=== PATIENT | male | born 1940 | race Caucasian/White ===

== ENCOUNTER 2021-05-26 18:23 | Inpatient (IN) | payer MEDICARE ==
[2021-05-26] MEDS ORDERED: Ondansetron PF 4 MG/2 ML Vial ONE (20:36)
[2021-05-26] MEDS ORDERED: Morphine 4 MG/ML VIAL ONE (20:36)
[2021-05-26] MEDS ORDERED: HYDROcodone/Acetaminophen 5/325 mg Tablet ONE (20:37)
[2021-05-26 21:35] LABS: INR-International Normal Ratio 1.2; Prothrombin Time 15.3 sec (12.0-14.7)
[2021-05-26 21:36] LABS: PTT 34.2 sec (22.9-36.1)
[2021-05-26 21:47] LABS: #Eosinphils 0.2 thou/uL (0.0-0.7); #Lymphocytes 0.9 thou/uL (1.20-3.40); #Monocytes 0.4 thou/uL (0.11-0.59); #Neutrophils 5.5 thou/uL (1.40-6.50); %Basophils 0.3 % (0.0-1.0); %Lymphocytes 12.2 % (21.0-51.0); %Neutrophils 78.6 % (42.0-75.0); Hemoglobin 12.3 g/dL (14.0-18.0); Mean Corpuscular HGB CONC 34.4 g/dL (32.0-36.0); Mean Corpuscular Volume 84.2 fL (78.0-98.0); Mean Platelet Volume 11.7 fL (7.4-10.4); Platelet Count 106 thou/uL (130-400); RBC Distribution Width 15.4 % (11.5-14.5); Red Blood Cell (RBC) Count 4.25 mill/uL (4.70-6.10)
[2021-05-26 22:11] LABS: ALT (SGPT) 11 U/L (8-55); AST (SGOT) 13 U/L (5-34); Albumin 3.5 g/dL (3.4-4.8); Alkaline Phosphatase 130 U/L (40-110); Anion Gap 18 mmol/L (10-20); BUN (Urea Nitrogen) 81 mg/dL (8.4-25.7); Calc. Creatinine Clearance 0 mL/min (70-130); Calcium 8.9 mg/dL (7.8-10.44); Carbon Dioxide 22 mmol/L (23-31); Chloride 98 mmol/L (98-107); Globulin 3.4 g/dL (2.4-3.5); Glucose 160 mg/dL (83-110); Protein, Total 6.9 g/dL (5.8-8.1); Sodium 133 mmol/L (136-145)
[2021-05-26 23:48] LABS: SARS-CoV-2 NAA Rapid Test Not Detected (NotDetected)
[2021-05-27 00:33] LABS: CKMB 2.2 ng/mL (0-6.6)
[2021-05-27] MEDS ORDERED: Acetaminophen 325 MG TAB PO PRN (01:42)
[2021-05-27] MEDS ORDERED: Dextrose 50% Abboject 50 ML SYRINGE SLOW IVP PRN (02:05)
[2021-05-27] MEDS ORDERED: HumaLOG 300 UNITS/3 ML VIAL SC PRN ×2 (02:05)
[2021-05-27] MEDS ORDERED: Dextrose 5% in Water 1,000 ML IV PRN (02:05)
[2021-05-27] MEDS: traMADol HCl 50 MG TAB PO PRN ×3 (04:37→22:23)
[2021-05-27 04:43] LABS: #Eosinphils 0.2 thou/uL (0.0-0.7); #Lymphocytes 0.6 thou/uL (1.20-3.40); #Monocytes 0.5 thou/uL (0.11-0.59); #Neutrophils 4.1 thou/uL (1.40-6.50); %Basophils 0.2 % (0.0-1.0); %Eosinophils 4.3 % (0.0-10.0); %Lymphocytes 10.4 % (21.0-51.0); %Monocytes 9.1 % (0.0-10.0); %Neutrophils 75.9 % (42.0-75.0); Hemoglobin 11.3 g/dL (14.0-18.0); Mean Corpuscular HGB CONC 33.1 g/dL (32.0-36.0); Mean Corpuscular Volume 84.5 fL (78.0-98.0); Mean Platelet Volume 11.8 fL (7.4-10.4); Platelet Count 107 thou/uL (130-400); RBC Distribution Width 15.3 % (11.5-14.5); Red Blood Cell (RBC) Count 4.02 mill/uL (4.70-6.10); White Blood Cell (WBC) Count 5.4 thou/uL (4.8-10.8)
[2021-05-27 05:23] LABS: Anion Gap 19 mmol/L (10-20); BUN (Urea Nitrogen) 79 mg/dL (8.4-25.7); Calc. Creatinine Clearance 0 mL/min (70-130); Calcium 8.1 mg/dL (7.8-10.44); Carbon Dioxide 16 mmol/L (23-31); Chloride 103 mmol/L (98-107); Glucose 129 mg/dL (83-110); Potassium 4.7 mmol/L (3.5-5.1); Sodium 133 mmol/L (136-145)
[2021-05-27 08:43] LABS: Troponin I 0.085 ng/mL (< 0.028)
[2021-05-27] MEDS: Lidocaine 5% Patch TD SCH (10:04)
[2021-05-27] MEDS: Transdermal Patch Removal TOP SCH (22:23)
[2021-05-28 05:21] LABS: Anion Gap 15 mmol/L (10-20); BUN (Urea Nitrogen) 90 mg/dL (8.4-25.7); Calc. Creatinine Clearance 32 mL/min (70-130); Carbon Dioxide 22 mmol/L (23-31); Chloride 102 mmol/L (98-107); Glucose 124 mg/dL (83-110); Potassium 4.8 mmol/L (3.5-5.1); Sodium 134 mmol/L (136-145)
[2021-05-28 05:30] LABS: #Eosinphils 0.3 thou/uL (0.0-0.7); #Lymphocytes 0.5 thou/uL (1.20-3.40); #Monocytes 0.5 thou/uL (0.11-0.59); #Neutrophils 3.8 thou/uL (1.40-6.50); %Basophils 0.8 % (0.0-1.0); %Eosinophils 5.4 % (0.0-10.0); %Lymphocytes 10.5 % (21.0-51.0); %Monocytes 9.8 % (0.0-10.0); %Neutrophils 73.6 % (42.0-75.0); Hemoglobin 11.2 g/dL (14.0-18.0); Mean Corpuscular HGB CONC 32.6 g/dL (32.0-36.0); Mean Corpuscular Hemoglobin 27.7 pg (27.0-31.0); Mean Corpuscular Volume 85.1 fL (78.0-98.0); Mean Platelet Volume 11.4 fL (7.4-10.4); Platelet Count 114 thou/uL (130-400); Red Blood Cell (RBC) Count 4.05 mill/uL (4.70-6.10); White Blood Cell (WBC) Count 5.1 thou/uL (4.8-10.8)
[2021-05-28] MEDS: Lidocaine 5% Patch TD SCH (09:48)
[2021-05-28] MEDS ORDERED: Sodium Chloride 0.9% 1,000 ML IV SCH (10:45)
[2021-05-28] MEDS ORDERED: Furosemide 20 MG/2 ML VIAL SLOW IVP SCH (11:45)
[2021-05-28] MEDS ORDERED: traMADol HCl 50 MG TAB PO PRN (12:35)
[2021-05-28] MEDS ORDERED: Acetaminophen 325 MG TAB PO SCH (13:00)
[2021-05-28] MEDS: Transdermal Patch Removal TOP SCH (21:11)
[2021-05-28] MEDS: HYDROcodone/Acetaminophen 5/325 mg Tablet PO PRN (21:11)
[2021-05-28] MEDS: Senokot S 8.6-50 MG TAB PO SCH (21:12)
[2021-05-29] MEDS: HYDROcodone/Acetaminophen 5/325 mg Tablet PO PRN (04:49)
[2021-05-29 05:49] LABS: Anion Gap 16 mmol/L (10-20); BUN (Urea Nitrogen) 99 mg/dL (8.4-25.7); Calc. Creatinine Clearance 36 mL/min (70-130); Calcium 8.7 mg/dL (7.8-10.44); Carbon Dioxide 22 mmol/L (23-31); Chloride 103 mmol/L (98-107); Glucose 111 mg/dL (83-110); Potassium 4.9 mmol/L (3.5-5.1); Sodium 136 mmol/L (136-145)
[2021-05-29] MEDS: Senokot S 8.6-50 MG TAB PO SCH ×2 (08:05→22:50)
[2021-05-29] MEDS: Lidocaine 5% Patch TD SCH (08:05)
[2021-05-29] MEDS ORDERED: traMADol HCl 50 MG TAB PO PRN ×2 (10:42→11:38)
[2021-05-29] MEDS: Ferrous Sulfate 325 MG TAB PO SCH (16:05)
[2021-05-29] MEDS: Carvedilol 6.25 MG TAB PO SCH (16:05)
[2021-05-29] MEDS ORDERED: Morphine 4 MG/ML VIAL SLOW IVP PRN (18:10)
[2021-05-29] MEDS: HYDROcodone/Acetaminophen 5/325 mg Tablet PO SCH (22:49)
[2021-05-29] MEDS: Transdermal Patch Removal TOP SCH (22:50)
[2021-05-29] MEDS: Atorvastatin Calcium 40 MG TAB PO SCH (22:50)
[2021-05-30] MEDS: HYDROcodone/Acetaminophen 5/325 mg Tablet PO SCH ×6 (02:51→21:20)
[2021-05-30] MEDS: Ketorolac Tromethamine 30 MG/ML VIAL IVP SCH ×4 (02:51→16:43)
[2021-05-30] MEDS: Carvedilol 6.25 MG TAB PO SCH ×2 (05:39→16:44)
[2021-05-30 05:48] LABS: #Eosinphils 0.3 thou/uL (0.0-0.7); #Lymphocytes 0.6 thou/uL (1.20-3.40); #Monocytes 0.4 thou/uL (0.11-0.59); #Neutrophils 2.8 thou/uL (1.40-6.50); %Basophils 0.4 % (0.0-1.0); %Eosinophils 7.5 % (0.0-10.0); %Lymphocytes 14.5 % (21.0-51.0); %Monocytes 10.2 % (0.0-10.0); %Neutrophils 67.3 % (42.0-75.0); Hemoglobin 11.2 g/dL (14.0-18.0); Mean Corpuscular HGB CONC 33.4 g/dL (32.0-36.0); Mean Corpuscular Hemoglobin 28.1 pg (27.0-31.0); Mean Platelet Volume 10.6 fL (7.4-10.4); Platelet Count 123 thou/uL (130-400); RBC Distribution Width 14.7 % (11.5-14.5); Red Blood Cell (RBC) Count 3.98 mill/uL (4.70-6.10); White Blood Cell (WBC) Count 4.1 thou/uL (4.8-10.8)
[2021-05-30 06:03] LABS: Anion Gap 16 mmol/L (10-20); BUN (Urea Nitrogen) 94 mg/dL (8.4-25.7); Calc. Creatinine Clearance 47 mL/min (70-130); Calcium 8.4 mg/dL (7.8-10.44); Carbon Dioxide 20 mmol/L (23-31); Chloride 104 mmol/L (98-107); Glucose 110 mg/dL (83-110); Potassium 4.7 mmol/L (3.5-5.1); Sodium 135 mmol/L (136-145)
[2021-05-30] MEDS ORDERED: Fentanyl 100 MCG/2 ML VIAL ONE (07:17)
[2021-05-30] MEDS ORDERED: EPINEPHrine 1 MG/ML AMP ONE (07:48)
[2021-05-30] MEDS ORDERED: Dexamethasone 4 mg/ml Vial ONE (07:48)
[2021-05-30] MEDS ORDERED: ceFAZolin 2 GM/DEX 5% 100 ML BAG ONE (07:51)
[2021-05-30] MEDS ORDERED: Famotidine/PF 20 mg/2ml Vial ONE (07:52)
[2021-05-30] MEDS ORDERED: Tranexamic Acid 1,000 MG/10 ML VIAL ONE (07:52)
[2021-05-30] MEDS ORDERED: Sodium Chloride 0.9% 100 ML ONE (07:52)
[2021-05-30] MEDS ORDERED: Propofol 500 MG/50 ML VIAL ONE (08:03)
[2021-05-30] MEDS ORDERED: Phenylephrine 10 MG/ML VIAL ONE (08:09)
[2021-05-30] MEDS ORDERED: Dexamethasone 20 MG/5 ML VIAL ONE (08:24)
[2021-05-30] MEDS ORDERED: ePHEDrine 50 MG/ML VIAL ONE (08:24)
[2021-05-30] MEDS ORDERED: PROPOFOL 200 MG/20 ML VIAL ONE (08:24)
[2021-05-30] MEDS ORDERED: Bupivacaine HCl 0.5%/Epinephrine 1:200,000/PF 30 ml Vial ONE (08:24)
[2021-05-30] MEDS ORDERED: Lidocaine 1% PF 5 ML VIAL ONE (08:24)
[2021-05-30] MEDS ORDERED: PHENYLEPHRINE-NS 100 MCG/ML 10 ML SYRINGE ONE ×2 (08:24→10:22)
[2021-05-30] MEDS ORDERED: Aspirin 81 mg Enteric Coated Tablet PO SCH (09:00)
[2021-05-30] MEDS ORDERED: Promethazine HCl 25 MG/ML VIAL IVPB PRN (11:03)
[2021-05-30] MEDS ORDERED: Promethazine HCl 25 MG/ML VIAL IM PRN (11:03)
[2021-05-30] MEDS ORDERED: Ondansetron HCl/PF 4 MG/2 ML Vial IVP PRN (11:03)
[2021-05-30] MEDS: Lidocaine 5% Patch TD SCH (12:01)
[2021-05-30] MEDS: Senokot S 8.6-50 MG TAB PO SCH ×2 (12:55→21:21)
[2021-05-30] MEDS: Spironolactone 25 MG TAB PO SCH (12:55)
[2021-05-30] MEDS: Ferrous Sulfate 325 MG TAB PO SCH ×2 (12:55→16:44)
[2021-05-30] MEDS: CEFAZOLIN 2 GM, Admixture Fee 1 EACH in Sodium Chloride 0.9% 100 ML IVPB SCH ×2 (13:35→22:32)
[2021-05-30] MEDS ORDERED: ceFAZolin 2 GM/DEX 5% 100 ML BAG IVPB SCH (14:00)
[2021-05-30] MEDS ORDERED: Polyethylene Glycol 3350 17 GM Packet PO SCH (15:15)
[2021-05-30] MEDS: Atorvastatin Calcium 40 MG TAB PO SCH (21:20)
[2021-05-30] MEDS: Transdermal Patch Removal TOP SCH (21:22)
[2021-05-31] MEDS: Ketorolac Tromethamine 30 MG/ML VIAL IVP SCH ×4 (00:44→18:29)
[2021-05-31] MEDS: HYDROcodone/Acetaminophen 5/325 mg Tablet PO SCH ×6 (00:44→20:26)
[2021-05-31 05:55] LABS: #Lymphocytes 0.4 thou/uL (1.20-3.40); #Monocytes 0.4 thou/uL (0.11-0.59); #Neutrophils 4.9 thou/uL (1.40-6.50); %Basophils 0.4 % (0.0-1.0); %Eosinophils 0.4 % (0.0-10.0); %Lymphocytes 6.7 % (21.0-51.0); %Monocytes 6.1 % (0.0-10.0); %Neutrophils 86.3 % (42.0-75.0); Hemoglobin 11.1 g/dL (14.0-18.0); Mean Corpuscular HGB CONC 33.7 g/dL (32.0-36.0); Mean Corpuscular Hemoglobin 28.1 pg (27.0-31.0); Mean Corpuscular Volume 83.5 fL (78.0-98.0); Mean Platelet Volume 10.7 fL (7.4-10.4); Platelet Count 121 thou/uL (130-400); RBC Distribution Width 14.5 % (11.5-14.5); Red Blood Cell (RBC) Count 3.95 mill/uL (4.70-6.10); White Blood Cell (WBC) Count 5.7 thou/uL (4.8-10.8)
[2021-05-31 06:19] LABS: ALT (SGPT) 7 U/L (8-55); AST (SGOT) 20 U/L (5-34); Alkaline Phosphatase 102 U/L (40-110); Anion Gap 16 mmol/L (10-20); BUN (Urea Nitrogen) 117 mg/dL (8.4-25.7); Calc. Creatinine Clearance 27 mL/min (70-130); Calcium 8.2 mg/dL (7.8-10.44); Carbon Dioxide 20 mmol/L (23-31); Chloride 103 mmol/L (98-107); Glucose 147 mg/dL (83-110); Potassium 5.6 mmol/L (3.5-5.1); Sodium 133 mmol/L (136-145)
[2021-05-31] MEDS ORDERED: Furosemide 20 MG/2 ML VIAL SLOW IVP SCH (07:15)
[2021-05-31] MEDS: Lidocaine 5% Patch TD SCH (09:00)
[2021-05-31] MEDS: Enoxaparin Sodium 40 MG/0.4 ML SYRINGE SC SCH (09:44)
[2021-05-31] MEDS: Polyethylene Glycol 3350 17 GM Packet PO SCH (09:44)
[2021-05-31] MEDS: Senokot S 8.6-50 MG TAB PO SCH ×3 (09:44→21:46)
[2021-05-31] MEDS: Spironolactone 25 MG TAB PO SCH (09:45)
[2021-05-31] MEDS: Carvedilol 6.25 MG TAB PO SCH ×2 (09:45→18:35)
[2021-05-31] MEDS: Ferrous Sulfate 325 MG TAB PO SCH ×2 (09:48→18:30)
[2021-05-31 14:22] LABS: Anion Gap 16 mmol/L (10-20); BUN (Urea Nitrogen) 123 mg/dL (8.4-25.7); Calc. Creatinine Clearance 25 mL/min (70-130); Carbon Dioxide 19 mmol/L (23-31); Chloride 102 mmol/L (98-107); Glucose 131 mg/dL (83-110); Potassium 5.3 mmol/L (3.5-5.1); Sodium 132 mmol/L (136-145)
[2021-05-31] MEDS: Atorvastatin Calcium 40 MG TAB PO SCH ×2 (20:26→21:45)
[2021-05-31] MEDS: Transdermal Patch Removal TOP SCH (21:46)
[2021-06-01] MEDS: Ketorolac Tromethamine 30 MG/ML VIAL IVP SCH ×3 (03:14→12:28)
[2021-06-01] MEDS: HYDROcodone/Acetaminophen 5/325 mg Tablet PO SCH ×5 (03:14→15:03)
[2021-06-01] MEDS: Enoxaparin Sodium 40 MG/0.4 ML SYRINGE SC SCH (09:27)
[2021-06-01] MEDS: Ferrous Sulfate 325 MG TAB PO SCH ×2 (09:27→19:04)
[2021-06-01] MEDS: Spironolactone 25 MG TAB PO SCH (09:27)
[2021-06-01] MEDS: Carvedilol 6.25 MG TAB PO SCH ×2 (09:27→17:40)
[2021-06-01] MEDS: Polyethylene Glycol 3350 17 GM Packet PO SCH (09:29)
[2021-06-01] MEDS: Senokot S 8.6-50 MG TAB PO SCH (09:29)
[2021-06-01] MEDS: Lidocaine 5% Patch TD SCH (09:29)
[2021-06-01] MEDS ORDERED: Heparin 10,000 UNITS/ 10 ML VIAL ONE (10:25)
[2021-06-01 10:36] LABS: Anion Gap 16 mmol/L (10-20); Calc. Creatinine Clearance 25 mL/min (70-130); Calcium 8.2 mg/dL (7.8-10.44); Carbon Dioxide 20 mmol/L (23-31); Chloride 104 mmol/L (98-107); Glucose 137 mg/dL (83-110); Potassium 5.1 mmol/L (3.5-5.1); Sodium 135 mmol/L (136-145)
[2021-06-01 10:48] LABS: BUN (Urea Nitrogen) 125 mg/dL (8.4-25.7)
[2021-06-01] MEDS ORDERED: Ziprasidone 20 MG VIAL IM PRN ×2 (16:11→16:20)
[2021-06-01] MEDS: ALPRAZolam 0.25 MG TAB PO PRN (16:23)
[2021-06-01] MEDS ORDERED: Sterile Water 10 ML VIAL FS PRN (16:30)
[2021-06-01 20:24] LABS: HBSAB Concentration Less than 8.00 mIU/mL; HBSAg Index 0.23 S/CO (0-0.99); Hep B Core Total Ab Non-Reactive (NonReactive); Hep B Core Total Index 0.06 S/CO (0-0.79); Hep B Surf AB Non-Reactive (NonReactive); Hep B Surf Ag Non-Reactive S/CO (NonReactive); Hep C IgG Ab Non-Reactive (NonReactive)
[2021-06-02] MEDS: Senokot S 8.6-50 MG TAB PO SCH ×3 (00:29→22:12)
[2021-06-02] MEDS: Atorvastatin Calcium 40 MG TAB PO SCH ×2 (00:29→22:14)
[2021-06-02] MEDS: Transdermal Patch Removal TOP SCH (07:47)
[2021-06-02] MEDS: Carvedilol 6.25 MG TAB PO SCH ×2 (08:48→18:23)
[2021-06-02] MEDS: Ferrous Sulfate 325 MG TAB PO SCH ×2 (08:52→18:23)
[2021-06-02] MEDS: Polyethylene Glycol 3350 17 GM Packet PO SCH (09:00)
[2021-06-02] MEDS: Lidocaine 5% Patch TD SCH (09:08)
[2021-06-02 09:11] LABS: #Eosinphils 0.1 thou/uL (0.0-0.7); #Lymphocytes 0.6 thou/uL (1.20-3.40); #Monocytes 0.4 thou/uL (0.11-0.59); #Neutrophils 6.7 thou/uL (1.40-6.50); %Basophils 0.3 % (0.0-1.0); %Eosinophils 1.7 % (0.0-10.0); %Lymphocytes 7.9 % (21.0-51.0); %Monocytes 5.4 % (0.0-10.0); %Neutrophils 84.7 % (42.0-75.0); Mean Corpuscular Hemoglobin 27.4 pg (27.0-31.0); Mean Corpuscular Volume 83.1 fL (78.0-98.0); Mean Platelet Volume 10.5 fL (7.4-10.4); Platelet Count 139 thou/uL (130-400); RBC Distribution Width 14.8 % (11.5-14.5); Red Blood Cell (RBC) Count 4.01 mill/uL (4.70-6.10); White Blood Cell (WBC) Count 7.9 thou/uL (4.8-10.8)
[2021-06-02] MEDS ORDERED: Heparin 10,000 UNITS/ 10 ML VIAL ONE (09:13)
[2021-06-02 09:39] LABS: ALT (SGPT) Less than 7 U/L (8-55); AST (SGOT) 26 U/L (5-34); Alkaline Phosphatase 100 U/L (40-110); Anion Gap 16 mmol/L (10-20); BUN (Urea Nitrogen) 65 mg/dL (8.4-25.7); Bilirubin, Total 1.3 mg/dL (0.2-1.2); Calc. Creatinine Clearance 52 mL/min (70-130); Calcium 8.2 mg/dL (7.8-10.44); Carbon Dioxide 23 mmol/L (23-31); Chloride 106 mmol/L (98-107); Globulin 2.9 g/dL (2.4-3.5); Glucose 113 mg/dL (83-110); Potassium 4.4 mmol/L (3.5-5.1); Protein, Total 5.9 g/dL (5.8-8.1); Sodium 141 mmol/L (136-145)
[2021-06-02 15:04] LABS: #Eosinphils 0.1 thou/uL (0.0-0.7); #Lymphocytes 0.5 thou/uL (1.20-3.40); #Monocytes 0.6 thou/uL (0.11-0.59); #Neutrophils 8.4 thou/uL (1.40-6.50); %Eosinophils 0.9 % (0.0-10.0); %Lymphocytes 5.1 % (21.0-51.0); %Monocytes 5.9 % (0.0-10.0); %Neutrophils 88.2 % (42.0-75.0); Hemoglobin 10.9 g/dL (14.0-18.0); Mean Corpuscular HGB CONC 32.9 g/dL (32.0-36.0); Mean Corpuscular Hemoglobin 27.4 pg (27.0-31.0); Mean Corpuscular Volume 83.2 fL (78.0-98.0); Mean Platelet Volume 10.2 fL (7.4-10.4); Platelet Count 140 thou/uL (130-400); RBC Distribution Width 14.8 % (11.5-14.5); Red Blood Cell (RBC) Count 3.99 mill/uL (4.70-6.10); White Blood Cell (WBC) Count 9.5 thou/uL (4.8-10.8)
[2021-06-02] MEDS: Acetaminophen 325 MG TAB PO PRN (22:12)
[2021-06-02] MEDS: ALPRAZolam 0.25 MG TAB PO PRN (22:12)
[2021-06-03] MEDS: Transdermal Patch Removal TOP SCH ×2 (07:47→20:54)
[2021-06-03 09:03] LABS: #Eosinphils 0.1 thou/uL (0.0-0.7); #Lymphocytes 0.6 thou/uL (1.20-3.40); #Monocytes 0.5 thou/uL (0.11-0.59); #Neutrophils 7.4 thou/uL (1.40-6.50); %Basophils 0.2 % (0.0-1.0); %Eosinophils 1.4 % (0.0-10.0); %Lymphocytes 6.4 % (21.0-51.0); %Monocytes 6.1 % (0.0-10.0); %Neutrophils 85.9 % (42.0-75.0); Hemoglobin 11.4 g/dL (14.0-18.0); Mean Corpuscular HGB CONC 32.9 g/dL (32.0-36.0); Mean Corpuscular Hemoglobin 27.9 pg (27.0-31.0); Mean Corpuscular Volume 84.8 fL (78.0-98.0); Mean Platelet Volume 10.2 fL (7.4-10.4); Platelet Count 143 thou/uL (130-400); RBC Distribution Width 14.9 % (11.5-14.5); Red Blood Cell (RBC) Count 4.08 mill/uL (4.70-6.10); White Blood Cell (WBC) Count 8.6 thou/uL (4.8-10.8)
[2021-06-03 09:22] LABS: ALT (SGPT) Less than 7 U/L (8-55); AST (SGOT) 24 U/L (5-34); Albumin 2.9 g/dL (3.4-4.8); Alkaline Phosphatase 101 U/L (40-110); Anion Gap 12 mmol/L (10-20); BUN (Urea Nitrogen) 54 mg/dL (8.4-25.7); Bilirubin, Total 1.8 mg/dL (0.2-1.2); Calc. Creatinine Clearance 68 mL/min (70-130); Calcium 8.3 mg/dL (7.8-10.44); Carbon Dioxide 28 mmol/L (23-31); Chloride 101 mmol/L (98-107); Glucose 130 mg/dL (83-110); Potassium 3.7 mmol/L (3.5-5.1); Protein, Total 5.9 g/dL (5.8-8.1); Sodium 137 mmol/L (136-145)
[2021-06-03] MEDS: Carvedilol 6.25 MG TAB PO SCH ×2 (09:22→18:01)
[2021-06-03] MEDS: Senokot S 8.6-50 MG TAB PO SCH ×2 (09:22→20:51)
[2021-06-03] MEDS: Ferrous Sulfate 325 MG TAB PO SCH ×2 (09:23→18:01)
[2021-06-03] MEDS: Lidocaine 5% Patch TD SCH (09:24)
[2021-06-03] MEDS: Polyethylene Glycol 3350 17 GM Packet PO SCH (09:24)
[2021-06-03] MEDS ORDERED: oxyCODONE/Acetaminophen 5 mg/325 mg Tablet PO PRN (11:00)
[2021-06-03] MEDS ORDERED: traMADol HCl 50 MG TAB PO SCH (11:00)
[2021-06-03] MEDS ORDERED: Lidocaine 5% Patch TD SCH (11:30)
[2021-06-03] MEDS: traMADol HCl 50 MG TAB PO PRN (18:04)
[2021-06-03] MEDS: Atorvastatin Calcium 40 MG TAB PO SCH (20:51)
[2021-06-04 04:20] LABS: Hemoglobin 10.4 g/dL (14.0-18.0); Mean Corpuscular HGB CONC 33.7 g/dL (32.0-36.0); Mean Corpuscular Hemoglobin 28.4 pg (27.0-31.0); Mean Corpuscular Volume 84.2 fL (78.0-98.0); Mean Platelet Volume 10.1 fL (7.4-10.4); Platelet Count 142 thou/uL (130-400); RBC Distribution Width 14.6 % (11.5-14.5); Red Blood Cell (RBC) Count 3.65 mill/uL (4.70-6.10); White Blood Cell (WBC) Count 7.9 thou/uL (4.8-10.8)
[2021-06-04 04:44] LABS: Anion Gap 13 mmol/L (10-20); BUN (Urea Nitrogen) 59 mg/dL (8.4-25.7); Calc. Creatinine Clearance 57 mL/min (70-130); Calcium 7.9 mg/dL (7.8-10.44); Carbon Dioxide 27 mmol/L (23-31); Chloride 99 mmol/L (98-107); Glucose 107 mg/dL (83-110); Potassium 3.8 mmol/L (3.5-5.1); Sodium 135 mmol/L (136-145)
[2021-06-04] MEDS ORDERED: Enoxaparin Sodium 40 MG/0.4 ML SYRINGE SC SCH (09:00)
[2021-06-04] MEDS: Polyethylene Glycol 3350 17 GM Packet PO SCH (09:01)
[2021-06-04] MEDS: Ferrous Sulfate 325 MG TAB PO SCH ×2 (09:01→16:45)
[2021-06-04] MEDS: Lidocaine 5% Patch TD SCH (09:01)
[2021-06-04] MEDS: Carvedilol 6.25 MG TAB PO SCH ×2 (09:01→16:44)
[2021-06-04] MEDS: Senokot S 8.6-50 MG TAB PO SCH ×2 (09:01→21:03)
[2021-06-04] MEDS: Sodium Chloride 0.9% 1,000 ML IV SCH ×2 (12:00→23:13)
[2021-06-04 14:42] LABS: SARS-CoV-2 PCR by NAA Not Detected (NotDetected)
[2021-06-04] MEDS ORDERED: Triamcinolone 0.1% Cream 15 GM TUBE TOP PRN (14:49)
[2021-06-04] MEDS ORDERED: Mupirocin 2% Ointment 22 GM Tube TOP SCH (15:15)
[2021-06-04] MEDS: Atorvastatin Calcium 40 MG TAB PO SCH (21:03)
[2021-06-04] MEDS: Aspirin 81 mg Enteric Coated Tablet PO SCH (21:03)
[2021-06-04] MEDS: Transdermal Patch Removal TOP SCH (21:06)
[2021-06-04] MEDS: Mupirocin 2% Ointment 22 GM Tube TOP SCH (21:09)
[2021-06-05 04:58] LABS: #Eosinphils 0.3 thou/uL (0.0-0.7); #Lymphocytes 0.5 thou/uL (1.20-3.40); #Monocytes 0.4 thou/uL (0.11-0.59); #Neutrophils 4.3 thou/uL (1.40-6.50); %Basophils 0.3 % (0.0-1.0); %Eosinophils 5.1 % (0.0-10.0); %Lymphocytes 9.5 % (21.0-51.0); %Monocytes 7.9 % (0.0-10.0); %Neutrophils 77.1 % (42.0-75.0); Hemoglobin 9.9 g/dL (14.0-18.0); Mean Corpuscular HGB CONC 31.8 g/dL (32.0-36.0); Mean Corpuscular Volume 84.9 fL (78.0-98.0); Mean Platelet Volume 10.7 fL (7.4-10.4); Platelet Count 143 thou/uL (130-400); RBC Distribution Width 14.5 % (11.5-14.5); Red Blood Cell (RBC) Count 3.67 mill/uL (4.70-6.10); White Blood Cell (WBC) Count 5.5 thou/uL (4.8-10.8)
[2021-06-05 05:35] LABS: Anion Gap 12 mmol/L (10-20); BUN (Urea Nitrogen) 62 mg/dL (8.4-25.7); Calc. Creatinine Clearance 60 mL/min (70-130); Calcium 7.8 mg/dL (7.8-10.44); Carbon Dioxide 25 mmol/L (23-31); Chloride 101 mmol/L (98-107); Glucose 108 mg/dL (83-110); Potassium 3.8 mmol/L (3.5-5.1); Sodium 134 mmol/L (136-145)
[2021-06-05] MEDS: Carvedilol 6.25 MG TAB PO SCH ×2 (09:51→17:30)
[2021-06-05] MEDS: Ferrous Sulfate 325 MG TAB PO SCH ×2 (09:51→17:30)
[2021-06-05] MEDS: Aspirin 81 mg Enteric Coated Tablet PO SCH ×2 (09:51→22:00)
[2021-06-05] MEDS: Senokot S 8.6-50 MG TAB PO SCH ×2 (09:51→22:00)
[2021-06-05] MEDS: Lidocaine 5% Patch TD SCH (09:51)
[2021-06-05] MEDS: Mupirocin 2% Ointment 22 GM Tube TOP SCH ×2 (09:52→22:00)
[2021-06-05] MEDS: Polyethylene Glycol 3350 17 GM Packet PO SCH (09:52)
[2021-06-05 14:05] LABS: Bacteria/HPF None Seen HPF (None Seen); Bilirubin Negative (Negative); Blood, Urine Negative (Negative); Clarity Clear (Clear); Glucose, Urine (Dipstick) Normal (Negative); Ketone, Urine Negative (Negative); Leukocyte 250 Leu/uL (Negative); Nitrite Negative (Negative); Protein, Urine (Dipstick) 10 mg/dL (Neg-Trace); RBC/HPF 0-3 HPF (0-3); Specific Gravity, Urine 1.017 (1.002-1.036); Squamous Epithelial None Seen HPF (0-3); Urobilinogen Normal mg/dL (Less than 2); pH, Urine 5.5 (5.0-9.0)
[2021-06-05 14:23] LABS: Creatinine, Urine 107.77 mg/dL (63-166)
[2021-06-05] MEDS: Sodium Chloride 0.9% 1,000 ML IV SCH (17:29)
[2021-06-05] MEDS: Atorvastatin Calcium 40 MG TAB PO SCH (22:00)
[2021-06-05] MEDS: Transdermal Patch Removal TOP SCH (22:00)
[2021-06-05] MEDS: ALPRAZolam 0.25 MG TAB PO PRN (23:03)
[2021-06-06 05:18] LABS: AST (SGOT) 18 U/L (5-34); Albumin 2.4 g/dL (3.4-4.8); Alkaline Phosphatase 99 U/L (40-110); Anion Gap 14 mmol/L (10-20); BUN (Urea Nitrogen) 54 mg/dL (8.4-25.7); Bilirubin, Total 1.2 mg/dL (0.2-1.2); Calc. Creatinine Clearance 75 mL/min (70-130); Calcium 7.5 mg/dL (7.8-10.44); Carbon Dioxide 19 mmol/L (23-31); Chloride 103 mmol/L (98-107); Glucose 121 mg/dL (83-110); Potassium 4.1 mmol/L (3.5-5.1); Protein, Total 5.4 g/dL (5.8-8.1); Sodium 132 mmol/L (136-145)
[2021-06-06 06:21] LABS: #Eosinphils 0.2 thou/uL (0.0-0.7); #Lymphocytes 0.4 thou/uL (1.20-3.40); #Monocytes 0.4 thou/uL (0.11-0.59); #Neutrophils 3.8 thou/uL (1.40-6.50); %Eosinophils 3.3 % (0.0-10.0); %Lymphocytes 8.9 % (21.0-51.0); %Neutrophils 79.8 % (42.0-75.0); Hemoglobin 9.4 g/dL (14.0-18.0); Mean Corpuscular HGB CONC 32.4 g/dL (32.0-36.0); Mean Corpuscular Hemoglobin 27.5 pg (27.0-31.0); Mean Corpuscular Volume 84.7 fL (78.0-98.0); Mean Platelet Volume 10.4 fL (7.4-10.4); Platelet Count 136 thou/uL (130-400); RBC Distribution Width 14.5 % (11.5-14.5); Red Blood Cell (RBC) Count 3.41 mill/uL (4.70-6.10); White Blood Cell (WBC) Count 4.8 thou/uL (4.8-10.8)
[2021-06-06 06:34] LABS: ALT (SGPT) 7 U/L (8-55)
[2021-06-06] MEDS: Sodium Chloride 0.9% 1,000 ML IV SCH ×3 (07:05→21:16)
[2021-06-06] MEDS: Ferrous Sulfate 325 MG TAB PO SCH ×2 (08:38→16:47)
[2021-06-06] MEDS: Aspirin 81 mg Enteric Coated Tablet PO SCH ×2 (08:38→20:55)
[2021-06-06] MEDS: Carvedilol 6.25 MG TAB PO SCH ×2 (08:38→16:47)
[2021-06-06] MEDS: Lidocaine 5% Patch TD SCH (08:39)
[2021-06-06] MEDS: Mupirocin 2% Ointment 22 GM Tube TOP SCH (08:40)
[2021-06-06] MEDS: Acetaminophen 325 MG TAB PO PRN (08:40)
[2021-06-06] MEDS: Polyethylene Glycol 3350 17 GM Packet PO SCH (08:51)
[2021-06-06] MEDS: Senokot S 8.6-50 MG TAB PO SCH ×2 (08:51→20:55)
[2021-06-06] MEDS: ALPRAZolam 0.25 MG TAB PO PRN (20:55)
[2021-06-06] MEDS: Transdermal Patch Removal TOP SCH (20:56)
[2021-06-07 04:34] LABS: #Eosinphils 0.2 thou/uL (0.0-0.7); #Lymphocytes 0.6 thou/uL (1.20-3.40); #Monocytes 0.4 thou/uL (0.11-0.59); %Lymphocytes 10.9 % (21.0-51.0); %Monocytes 7.5 % (0.0-10.0); %Neutrophils 77.7 % (42.0-75.0); Hemoglobin 9.6 g/dL (14.0-18.0); Mean Corpuscular HGB CONC 34.3 g/dL (32.0-36.0); Mean Corpuscular Hemoglobin 28.7 pg (27.0-31.0); Mean Corpuscular Volume 83.8 fL (78.0-98.0); Mean Platelet Volume 10.2 fL (7.4-10.4); Platelet Count 135 thou/uL (130-400); RBC Distribution Width 14.3 % (11.5-14.5); Red Blood Cell (RBC) Count 3.35 mill/uL (4.70-6.10); White Blood Cell (WBC) Count 5.1 thou/uL (4.8-10.8)
[2021-06-07 04:53] LABS: Hemoglobin A1c 8.6 % (4.0-6.0)
[2021-06-07 05:02] LABS: ALT (SGPT) 7 U/L (8-55); AST (SGOT) 15 U/L (5-34); Albumin 2.6 g/dL (3.4-4.8); Alkaline Phosphatase 104 U/L (40-110); Anion Gap 11 mmol/L (10-20); BUN (Urea Nitrogen) 49 mg/dL (8.4-25.7); Bilirubin, Total 1.2 mg/dL (0.2-1.2); Calc. Creatinine Clearance 86 mL/min (70-130); Calcium 7.4 mg/dL (7.8-10.44); Carbon Dioxide 20 mmol/L (23-31); Chloride 104 mmol/L (98-107); Globulin 2.7 g/dL (2.4-3.5); Glucose 124 mg/dL (83-110); Phosphorus 2.7 mg/dL (2.3-4.7); Potassium 4.1 mmol/L (3.5-5.1); Protein, Total 5.3 g/dL (5.8-8.1); Sodium 131 mmol/L (136-145)
[2021-06-07] MEDS: Lidocaine 5% Patch TD SCH (09:19)
[2021-06-07] MEDS: Senokot S 8.6-50 MG TAB PO SCH ×2 (09:21→20:56)
[2021-06-07] MEDS: Polyethylene Glycol 3350 17 GM Packet PO SCH (09:21)
[2021-06-07] MEDS: Aspirin 81 mg Enteric Coated Tablet PO SCH ×2 (09:21→20:56)
[2021-06-07] MEDS: Carvedilol 6.25 MG TAB PO SCH ×2 (09:21→15:51)
[2021-06-07] MEDS: Cyanocobalamin (Vitamin B-12) 1,000 MCG TAB PO SCH (09:22)
[2021-06-07] MEDS: Ferrous Sulfate 325 MG TAB PO SCH ×2 (09:22→15:57)
[2021-06-07] MEDS: Atorvastatin Calcium 40 MG TAB PO SCH (09:22)
[2021-06-07] MEDS ORDERED: Furosemide 20 MG/2 ML VIAL SLOW IVP SCH (09:30)
[2021-06-07] MEDS: Acetaminophen 325 MG TAB PO SCH ×3 (10:57→20:56)
[2021-06-07] MEDS: Furosemide 20 MG/2 ML VIAL SLOW IVP SCH (15:50)
[2021-06-07] MEDS: ALPRAZolam 0.25 MG TAB PO PRN (20:57)
[2021-06-07] MEDS: Transdermal Patch Removal TOP SCH (20:59)
[2021-06-08] MEDS: Acetaminophen 325 MG TAB PO SCH ×4 (03:52→21:40)
[2021-06-08] MEDS: traMADol HCl 50 MG TAB PO PRN (03:53)
[2021-06-08 04:25] LABS: #Eosinphils 0.2 thou/uL (0.0-0.7); #Lymphocytes 0.5 thou/uL (1.20-3.40); #Monocytes 0.4 thou/uL (0.11-0.59); #Neutrophils 3.6 thou/uL (1.40-6.50); %Eosinophils 4.4 % (0.0-10.0); %Lymphocytes 10.1 % (21.0-51.0); %Monocytes 8.6 % (0.0-10.0); %Neutrophils 76.8 % (42.0-75.0); Hemoglobin 9.8 g/dL (14.0-18.0); Mean Corpuscular HGB CONC 33.8 g/dL (32.0-36.0); Mean Corpuscular Hemoglobin 28.2 pg (27.0-31.0); Mean Corpuscular Volume 83.5 fL (78.0-98.0); Mean Platelet Volume 10.1 fL (7.4-10.4); Platelet Count 150 thou/uL (130-400); RBC Distribution Width 14.3 % (11.5-14.5); Red Blood Cell (RBC) Count 3.49 mill/uL (4.70-6.10); White Blood Cell (WBC) Count 4.7 thou/uL (4.8-10.8)
[2021-06-08 04:52] LABS: ALT (SGPT) 8 U/L (8-55); AST (SGOT) 13 U/L (5-34); Albumin 2.7 g/dL (3.4-4.8); Alkaline Phosphatase 107 U/L (40-110); Anion Gap 10 mmol/L (10-20); BUN (Urea Nitrogen) 51 mg/dL (8.4-25.7); Bilirubin, Total 1.1 mg/dL (0.2-1.2); Calc. Creatinine Clearance 77 mL/min (70-130); Carbon Dioxide 24 mmol/L (23-31); Chloride 104 mmol/L (98-107); Globulin 2.7 g/dL (2.4-3.5); Glucose 116 mg/dL (83-110); Phosphorus 3.3 mg/dL (2.3-4.7); Potassium 4.2 mmol/L (3.5-5.1); Protein, Total 5.4 g/dL (5.8-8.1); Sodium 134 mmol/L (136-145)
[2021-06-08] MEDS: Furosemide 20 MG/2 ML VIAL SLOW IVP SCH ×2 (06:02→14:01)
[2021-06-08] MEDS: Lidocaine 5% Patch TD SCH (09:09)
[2021-06-08] MEDS: Ferrous Sulfate 325 MG TAB PO SCH ×2 (09:10→17:25)
[2021-06-08] MEDS: Carvedilol 6.25 MG TAB PO SCH ×2 (09:10→17:09)
[2021-06-08] MEDS: Polyethylene Glycol 3350 17 GM Packet PO SCH (09:10)
[2021-06-08] MEDS: Aspirin 81 mg Enteric Coated Tablet PO SCH ×2 (09:10→21:38)
[2021-06-08] MEDS: Senokot S 8.6-50 MG TAB PO SCH ×2 (09:10→21:38)
[2021-06-08] MEDS: Cyanocobalamin (Vitamin B-12) 1,000 MCG TAB PO SCH (09:11)
[2021-06-08] MEDS: Atorvastatin Calcium 40 MG TAB PO SCH (09:11)
[2021-06-08] MEDS: traMADol HCl 50 MG TAB PO SCH ×2 (13:59→21:38)
[2021-06-08] MEDS: Transdermal Patch Removal TOP SCH (21:39)
[2021-06-08] MEDS: ALPRAZolam 0.25 MG TAB PO PRN (21:49)
[2021-06-09] MEDS: Acetaminophen 325 MG TAB PO SCH ×2 (04:20→10:26)
[2021-06-09] MEDS: Furosemide 20 MG/2 ML VIAL SLOW IVP SCH (05:27)
[2021-06-09 05:30] LABS: #Eosinphils 0.2 thou/uL (0.0-0.7); #Lymphocytes 0.5 thou/uL (1.20-3.40); #Monocytes 0.3 thou/uL (0.11-0.59); #Neutrophils 2.9 thou/uL (1.40-6.50); %Basophils 0.6 % (0.0-1.0); %Lymphocytes 13.3 % (21.0-51.0); %Monocytes 7.9 % (0.0-10.0); %Neutrophils 73.3 % (42.0-75.0); Hemoglobin 9.5 g/dL (14.0-18.0); Mean Corpuscular HGB CONC 31.3 g/dL (32.0-36.0); Mean Corpuscular Hemoglobin 26.6 pg (27.0-31.0); Mean Corpuscular Volume 84.7 fL (78.0-98.0); Mean Platelet Volume 10.4 fL (7.4-10.4); Platelet Count 148 thou/uL (130-400); RBC Distribution Width 14.4 % (11.5-14.5); Red Blood Cell (RBC) Count 3.57 mill/uL (4.70-6.10); White Blood Cell (WBC) Count 3.9 thou/uL (4.8-10.8)
[2021-06-09 06:03] LABS: ALT (SGPT) 10 U/L (8-55); AST (SGOT) 12 U/L (5-34); Albumin 2.7 g/dL (3.4-4.8); Alkaline Phosphatase 113 U/L (40-110); Anion Gap 11 mmol/L (10-20); BUN (Urea Nitrogen) 54 mg/dL (8.4-25.7); Calc. Creatinine Clearance 69 mL/min (70-130); Calcium 8.2 mg/dL (7.8-10.44); Carbon Dioxide 23 mmol/L (23-31); Chloride 103 mmol/L (98-107); Globulin 2.8 g/dL (2.4-3.5); Glucose 110 mg/dL (83-110); Magnesium 1.8 mg/dL (1.6-2.6); Phosphorus 3.7 mg/dL (2.3-4.7); Potassium 4.4 mmol/L (3.5-5.1); Protein, Total 5.5 g/dL (5.8-8.1); Sodium 133 mmol/L (136-145)
[2021-06-09] MEDS: Atorvastatin Calcium 40 MG TAB PO SCH (09:02)
[2021-06-09] MEDS: traMADol HCl 50 MG TAB PO SCH ×2 (09:02→14:39)
[2021-06-09] MEDS: Senokot S 8.6-50 MG TAB PO SCH (09:02)
[2021-06-09] MEDS: Cyanocobalamin (Vitamin B-12) 1,000 MCG TAB PO SCH (09:02)
[2021-06-09] MEDS: Aspirin 81 mg Enteric Coated Tablet PO SCH (09:02)
[2021-06-09] MEDS: Ferrous Sulfate 325 MG TAB PO SCH ×2 (09:04→17:55)
[2021-06-09] MEDS: Lidocaine 5% Patch TD SCH (09:04)
[2021-06-09] MEDS: Carvedilol 6.25 MG TAB PO SCH ×2 (09:04→17:54)
[2021-06-09] MEDS: Polyethylene Glycol 3350 17 GM Packet PO SCH (09:04)
[2021-06-09] MEDS ORDERED: Furosemide 40 MG TAB PO SCH (14:00)
[2021-06-09 17:08] VITALS: TEMP 97.6
[2021-06-09 17:55] VITALS: BP 119/71
[2021-06-09] MEDS ORDERED: traZODone HCl 50 MG TAB PO SCH (21:00)
[2021-06-10] MEDS ORDERED: Spironolactone 25 MG TAB PO SCH (08:00)
== END 2021-06-09 17:58 | DRG 521 ==
LOC: ERS 18:23 → 2NO 05-27 00:14
PROVIDERS: ADMIT Internal Medicine; ATTEND Family Medicine
PROC: 0SRR0J9 Replacement of Right Hip Joint, Femoral Surface with Synthetic Substitute, Cemented, Open Approach (ICD-10-PCS; principal; 2021-05-30)
PROC: 06HY33Z Insertion of Infusion Device into Lower Vein, Percutaneous Approach (ICD-10-PCS; 2021-06-01)
PROC: 5A1D70Z Performance of Urinary Filtration, Intermittent, Less than 6 Hours Per Day (ICD-10-PCS; 2021-06-01)
PROC: 2W5 Placement, Anatomical Regions, Removal (ICD-10-PCS; 2021-06-02)
PROC: 2W3CX2Z Immobilization of Right Lower Arm using Cast (ICD-10-PCS; 2021-06-02)
DX: S72.041A Displaced fracture of base of neck of right femur, initial encounter for closed fracture (principal); J96.01 Acute respiratory failure with hypoxia; G93.41 Metabolic encephalopathy; I13.0 Hypertensive heart and chronic kidney disease with heart failure and stage 1 through stage 4 chronic kidney disease, or unspecified chronic kidney disease; I50.22 Chronic systolic (congestive) heart failure; N17.9 Acute kidney failure, unspecified; E87.1 Hypo-osmolality and hyponatremia; E87.2 Acidosis; K92.1 Melena; S52.021A Displaced fracture of olecranon process without intraarticular extension of right ulna, initial encounter for closed fracture; Z20.822 Contact with and (suspected) exposure to COVID-19; V00.831A Fall from motorized mobility scooter, initial encounter; E78.5 Hyperlipidemia, unspecified; I25.10 Atherosclerotic heart disease of native coronary artery without angina pectoris; K21.9 Gastro-esophageal reflux disease without esophagitis; M10.9 Gout, unspecified; F41.9 Anxiety disorder, unspecified; E11.22 Type 2 diabetes mellitus with diabetic chronic kidney disease; D63.1 Anemia in chronic kidney disease; I87.2 Venous insufficiency (chronic) (peripheral); N18.30 Chronic kidney disease, stage 3 unspecified; D69.6 Thrombocytopenia, unspecified; I71.9 Aortic aneurysm of unspecified site, without rupture; R07.89 Other chest pain; M25.461 Effusion, right knee; M17.11 Unilateral primary osteoarthritis, right knee; D50.0 Iron deficiency anemia secondary to blood loss (chronic); K59.00 Constipation, unspecified; E87.5 Hyperkalemia; Z79.899 Other long term (current) drug therapy; Z79.82 Long term (current) use of aspirin; Z85.820 Personal history of malignant melanoma of skin; Z95.810 Presence of automatic (implantable) cardiac defibrillator; Z95.1 Presence of aortocoronary bypass graft; Z87.891 Personal history of nicotine dependence; Z98.49 Cataract extraction status, unspecified eye
CPT/HCPCS: 29105; 36415; 36416; 70450; 71045; 72125; 72170; 72192; 76705; 76770; 80048; 80053; 81001; 82274; 82553; 82570; 83036; 83735; 83880; 84100; 84156; 84484; 85025; 85027; 85610; 85730; 86704; 86706; 86803; 87340; 90935; 93005; 93970; 96374; 96375; G0257; J0171; J0690; J1100; J1642; J1644; J1650; J1815; J1885; J1940; J2270; J2370; J2405; J2704; J3010; J3490; J7050; S0028; U0002; U0003; U0005

== ENCOUNTER 2021-07-17 09:03 | Day surgery (SDC) | payer MEDICARE ==
[2021-07-17] MEDS ORDERED: Acetaminophen 500 MG TAB ONE (09:50)
[2021-07-17] MEDS ORDERED: diphenhydrAMINE 25 MG CAP ONE (09:50)
[2021-07-17] MEDS ORDERED: Sodium Chloride 0.9% 10 ML ONE (09:50)
[2021-07-17 15:40] VITALS: BP 137/63; TEMP 98.1
== END 2021-07-17 15:40 | disposition home or self-care (01) ==
LOC: ONC/OP 09:03
PROVIDERS: ATTEND Internal Medicine Hematology & Oncology
PROC: 30233N1 Transfusion of Nonautologous Red Blood Cells into Peripheral Vein, Percutaneous Approach (ICD-10-PCS; principal; 2021-07-17)
DX: D64.9 Anemia, unspecified (principal); D69.6 Thrombocytopenia, unspecified
CPT/HCPCS: 36430; 86850; 86900; 86901; J1642; P9016

== ENCOUNTER 2022-11-16 20:20 | Inpatient (IN) | payer OTHER ==
[2022-11-16] MEDS ORDERED: Ondansetron PF 4 MG/2 ML Vial IVP PRN (22:23)
[2022-11-16] MEDS ORDERED: TETANUS, DIPHTHERIA TOX,ADULT (TDVAX) 0.5 ML VIAL IM ONE (22:23)
[2022-11-16] MEDS ORDERED: Ipratropium/Albuterol 3 ML NEB NEB PRN ×2 (22:23→22:31)
[2022-11-16] MEDS ORDERED: Sodium Chloride 0.9% 1,000 ML IV SCH (22:30)
[2022-11-16] MEDS ORDERED: traMADol HCl 50 MG TAB PO PRN (22:31)
[2022-11-16] MEDS ORDERED: Morphine 2 MG/ML VIAL SLOW IVP PRN (22:31)
[2022-11-16] MEDS ORDERED: Morphine 4 MG/ML VIAL ONE (22:43)
[2022-11-16 23:22] LABS: #Eosinphils 0.1 thou/uL (0.0-0.7); #Lymphocytes 0.7 thou/uL (1.20-3.40); #Monocytes 0.5 thou/uL (0.11-0.59); %Basophils 0.4 % (0.0-1.0); %Eosinophils 0.6 % (0.0-10.0); %Lymphocytes 7.5 % (21.0-51.0); %Monocytes 5.1 % (0.0-10.0); %Neutrophils 86.3 % (42.0-75.0); Hemoglobin 10.7 g/dL (14.0-18.0); Mean Corpuscular HGB CONC 32.8 g/dL (32.0-36.0); Mean Corpuscular Hemoglobin 28.7 pg (27.0-31.0); Mean Corpuscular Volume 87.6 fl (78.0-98.0); Mean Platelet Volume 10.1 fL (7.4-10.4); Platelet Count 146 10x3/uL (130-400); RBC Distribution Width 16.6 % (11.5-14.5); Red Blood Cell (RBC) Count 3.73 mill/uL (4.70-6.10); White Blood Cell (WBC) Count 9.3 10x3/uL (4.8-10.8)
[2022-11-16 23:42] LABS: ALT (SGPT) 10 U/L (8-55); AST (SGOT) 10 U/L (5-34); Albumin 3.8 g/dL (3.4-4.8); Alkaline Phosphatase 98 U/L (40-110); Anion Gap 15 mmol/L (10-20); BUN (Urea Nitrogen) 77 mg/dL (8.4-25.7); Bilirubin, Total 0.7 mg/dL (0.2-1.2); CK (CPK) 31 U/L (30-200); Calc. Creatinine Clearance 0 mL/min (70-130); Calcium 8.9 mg/dL (7.8-10.44); Carbon Dioxide 20 mmol/L (23-31); Chloride 105 mmol/L (98-107); Estimated GFR 30; Globulin 3.4 g/dL (2.4-3.5); Glucose 178 mg/dL (83-110); Protein, Total 7.2 g/dL (5.8-8.1); Sodium 133 mmol/L (136-145)
[2022-11-16 23:47] LABS: Potassium 7.3 mmol/L (3.5-5.1)
[2022-11-17] MEDS: Morphine 2 MG/ML VIAL SLOW IVP PRN ×3 (00:30→08:18)
[2022-11-17] MEDS ORDERED: Dextrose 50% Abboject 50 ML SYRINGE SLOW IVP PRN (00:37)
[2022-11-17] MEDS ORDERED: Sodium Bicarbonate 150 MEQ in Dextrose 5% in Water 1,000 ML IV SCH (00:45)
[2022-11-17] MEDS ORDERED: Calcium Chloride 13.6 MEQ in Sodium Chloride 0.9% 100 ML IVPB SCH (00:45)
[2022-11-17] MEDS ORDERED: Furosemide 20 MG/2 ML VIAL SLOW IVP SCH ×2 (00:45→19:15)
[2022-11-17] MEDS ORDERED: Insulin Regular 300 UNITS/3 ML VIAL IVP SCH (00:45)
[2022-11-17 01:22] LABS: Anion Gap 17 mmol/L (10-20); BUN (Urea Nitrogen) 76 mg/dL (8.4-25.7); Calc. Creatinine Clearance 0 mL/min (70-130); Calcium 8.6 mg/dL (7.8-10.44); Carbon Dioxide 17 mmol/L (23-31); Chloride 107 mmol/L (98-107); Estimated GFR 32; Glucose 162 mg/dL (83-110); Sodium 134 mmol/L (136-145)
[2022-11-17 01:27] LABS: Potassium 6.9 mmol/L (3.5-5.1)
[2022-11-17] MEDS: Acetaminophen 500 MG TAB PO SCH ×3 (01:46→10:59)
[2022-11-17] MEDS: traMADol HCl 50 MG TAB PO SCH ×5 (01:46→23:55)
[2022-11-17 01:52] VITALS: BMI 29.5
[2022-11-17 01:53] LABS: CKMB 2.1 ng/mL (0-6.6)
[2022-11-17 07:20] LABS: #Lymphocytes 0.7 thou/uL (1.20-3.40); #Monocytes 0.6 thou/uL (0.11-0.59); #Neutrophils 5.6 thou/uL (1.40-6.50); %Basophils 0.1 % (0.0-1.0); %Eosinophils 0.4 % (0.0-10.0); %Lymphocytes 10.1 % (21.0-51.0); %Monocytes 7.9 % (0.0-10.0); %Neutrophils 81.5 % (42.0-75.0); Hemoglobin 9.3 g/dL (14.0-18.0); Mean Corpuscular HGB CONC 33.1 g/dL (32.0-36.0); Mean Corpuscular Hemoglobin 28.7 pg (27.0-31.0); Mean Corpuscular Volume 86.5 fl (78.0-98.0); Mean Platelet Volume 10.6 fL (7.4-10.4); Platelet Count 125 10x3/uL (130-400); RBC Distribution Width 16.5 % (11.5-14.5); Red Blood Cell (RBC) Count 3.26 mill/uL (4.70-6.10); White Blood Cell (WBC) Count 6.9 10x3/uL (4.8-10.8)
[2022-11-17 07:31] LABS: INR-International Normal Ratio 1.3; Prothrombin Time 16.4 sec (12.0-14.7)
[2022-11-17 07:32] LABS: PTT 31.7 sec (22.9-36.1)
[2022-11-17 07:39] LABS: Anion Gap 13 mmol/L (10-20); BUN (Urea Nitrogen) 71 mg/dL (8.4-25.7); Calc. Creatinine Clearance 40 mL/min (70-130); Calcium 8.7 mg/dL (7.8-10.44); Carbon Dioxide 19 mmol/L (23-31); Chloride 106 mmol/L (98-107); Estimated GFR 33; Glucose 208 mg/dL (83-110); Sodium 131 mmol/L (136-145)
[2022-11-17 07:54] LABS: Potassium 6.5 mmol/L (3.5-5.1)
[2022-11-17] MEDS ORDERED: Furosemide 40 MG/4 ML VIAL SLOW IVP SCH (08:00)
[2022-11-17] MEDS ORDERED: Spironolactone 25 MG TAB PO SCH (08:00)
[2022-11-17] MEDS: Atorvastatin Calcium 40 MG TAB PO SCH (08:15)
[2022-11-17] MEDS: Carvedilol 3.125 MG TAB PO SCH ×2 (08:15→21:05)
[2022-11-17] MEDS: Allopurinol 100 MG TAB PO SCH ×2 (08:16→21:05)
[2022-11-17] MEDS ORDERED: CEFAZOLIN 2 GM in Sodium Chloride 0.9% 100 ML IVPB SCH (08:30)
[2022-11-17] MEDS ORDERED: Furosemide 40 MG TAB PO SCH (09:00)
[2022-11-17] MEDS ORDERED: LOKELMA 10 GM PACKET PO SCH (09:00)
[2022-11-17] MEDS ORDERED: Famotidine/PF 20 mg/2ml Vial SLOW IVP SCH (09:00)
[2022-11-17 09:11] LABS: Anion Gap 12 mmol/L (10-20); BUN (Urea Nitrogen) 73 mg/dL (8.4-25.7); Calc. Creatinine Clearance 39 mL/min (70-130); Calcium 8.9 mg/dL (7.8-10.44); Carbon Dioxide 19 mmol/L (23-31); Chloride 107 mmol/L (98-107); Estimated GFR 33; Glucose 201 mg/dL (83-110); Sodium 132 mmol/L (136-145)
[2022-11-17] MEDS: Polyethylene Glycol 3350 17 GM Packet PO SCH (09:13)
[2022-11-17] MEDS: Senokot S 8.6-50 MG TAB PO SCH ×2 (09:14→21:07)
[2022-11-17 09:17] LABS: Potassium 6.3 mmol/L (3.5-5.1)
[2022-11-17] MEDS ORDERED: Morphine 4 MG/ML VIAL SLOW IVP PRN (12:58)
[2022-11-17] MEDS: Acetaminophen/Codeine 30-300mg Tablet PO SCH ×3 (13:08→23:54)
[2022-11-17 16:57] LABS: Anion Gap 15 mmol/L (10-20); BUN (Urea Nitrogen) 67 mg/dL (8.4-25.7); Calc. Creatinine Clearance 39 mL/min (70-130); Calcium 8.6 mg/dL (7.8-10.44); Carbon Dioxide 22 mmol/L (23-31); Chloride 105 mmol/L (98-107); Estimated GFR 33; Glucose 187 mg/dL (83-110); Potassium 5.7 mmol/L (3.5-5.1); Sodium 136 mmol/L (136-145)
[2022-11-17] MEDS ORDERED: Sodium Chloride 0.9% 500 ML IV SCH (20:00)
[2022-11-17] MEDS: Tamsulosin HCl 0.4 MG CAP PO SCH (21:04)
[2022-11-17] MEDS: Cyclobenzaprine 10 MG TAB PO PRN (21:06)
[2022-11-18] MEDS: Simethicone Chewable 80 MG TAB PO PRN (02:11)
[2022-11-18] MEDS: Acetaminophen/Codeine 30-300mg Tablet PO SCH ×3 (06:00→17:55)
[2022-11-18] MEDS: traMADol HCl 50 MG TAB PO SCH ×3 (06:01→17:54)
[2022-11-18 06:44] LABS: #Eosinphils 0.2 thou/uL (0.0-0.7); #Lymphocytes 0.7 thou/uL (1.20-3.40); #Monocytes 0.5 thou/uL (0.11-0.59); #Neutrophils 4.4 thou/uL (1.40-6.50); %Eosinophils 2.8 % (0.0-10.0); %Lymphocytes 12.7 % (21.0-51.0); %Monocytes 8.6 % (0.0-10.0); %Neutrophils 75.9 % (42.0-75.0); Hemoglobin 8.7 g/dL (14.0-18.0); Mean Corpuscular HGB CONC 31.9 g/dL (32.0-36.0); Mean Corpuscular Hemoglobin 28.5 pg (27.0-31.0); Mean Corpuscular Volume 89.3 fl (78.0-98.0); Mean Platelet Volume 10.5 fL (7.4-10.4); Platelet Count 121 10x3/uL (130-400); RBC Distribution Width 16.8 % (11.5-14.5); Red Blood Cell (RBC) Count 3.04 mill/uL (4.70-6.10); White Blood Cell (WBC) Count 5.8 10x3/uL (4.8-10.8)
[2022-11-18 06:56] LABS: Anion Gap 12 mmol/L (10-20); BUN (Urea Nitrogen) 58 mg/dL (8.4-25.7); Calc. Creatinine Clearance 47 mL/min (70-130); Calcium 8.2 mg/dL (7.8-10.44); Carbon Dioxide 21 mmol/L (23-31); Chloride 107 mmol/L (98-107); Estimated GFR 41; Glucose 131 mg/dL (83-110); Magnesium 1.7 mg/dL (1.6-2.6); Phosphorus 3.7 mg/dL (2.3-4.7); Potassium 4.9 mmol/L (3.5-5.1); Sodium 135 mmol/L (136-145)
[2022-11-18] MEDS ORDERED: Magnesium 2 GM/50 ML(in water) 2 GM in Premix Bag 1 BAG IVPB SCH (08:00)
[2022-11-18] MEDS: Carvedilol 3.125 MG TAB PO SCH ×2 (08:42→20:15)
[2022-11-18] MEDS ORDERED: Furosemide 40 MG TAB PO SCH (09:00)
[2022-11-18] MEDS: Polyethylene Glycol 3350 17 GM Packet PO SCH (09:27)
[2022-11-18] MEDS: Senokot S 8.6-50 MG TAB PO SCH ×2 (09:27→20:15)
[2022-11-18] MEDS: Atorvastatin Calcium 40 MG TAB PO SCH (09:28)
[2022-11-18] MEDS: Allopurinol 100 MG TAB PO SCH ×2 (09:28→20:15)
[2022-11-18] MEDS ORDERED: PHENYLEPHRINE-NS 100 MCG/ML 10 ML SYRINGE ONE (15:10)
[2022-11-18] MEDS ORDERED: fentaNYL PF 100 MCG/2 ML SYRINGE ONE (15:10)
[2022-11-18] MEDS ORDERED: CEFAZOLIN 2 GM VIAL ONE (15:27)
[2022-11-18] MEDS ORDERED: Sodium Chloride 0.9% 100 ML ONE (15:27)
[2022-11-18] MEDS ORDERED: Metoclopramide HCl 10 MG/2 ML VIAL ONE (16:04)
[2022-11-18] MEDS ORDERED: Rocuronium Bromide 10 MG/ML (10ML VIAL) ONE (16:04)
[2022-11-18] MEDS ORDERED: Phenylephrine 10 MG/ML VIAL ONE (16:04)
[2022-11-18] MEDS ORDERED: Ondansetron PF 4 MG/2 ML Vial ONE (16:04)
[2022-11-18] MEDS ORDERED: Dexamethasone 20 MG/5 ML VIAL ONE (16:04)
[2022-11-18] MEDS ORDERED: Lidocaine 1% PF 5 ML VIAL ONE (16:04)
[2022-11-18] MEDS ORDERED: SUGAMMADEX SODIUM 200 MG/2 ML VIAL ONE (16:49)
[2022-11-18] MEDS: Tamsulosin HCl 0.4 MG CAP PO SCH (20:15)
[2022-11-19] MEDS: traMADol HCl 50 MG TAB PO SCH ×4 (01:28→17:50)
[2022-11-19] MEDS: CEFAZOLIN 2 GM in Sodium Chloride 0.9% 100 ML IVPB SCH ×2 (01:29→08:24)
[2022-11-19] MEDS: Acetaminophen/Codeine 30-300mg Tablet PO SCH ×4 (01:33→17:51)
[2022-11-19 06:23] LABS: #Eosinphils 0.1 thou/uL (0.0-0.7); #Lymphocytes 0.9 thou/uL (1.20-3.40); #Monocytes 0.8 thou/uL (0.11-0.59); #Neutrophils 7.7 thou/uL (1.40-6.50); %Basophils 0.1 % (0.0-1.0); %Eosinophils 0.8 % (0.0-10.0); %Lymphocytes 9.4 % (21.0-51.0); %Monocytes 8.8 % (0.0-10.0); %Neutrophils 80.8 % (42.0-75.0); Hemoglobin 7.5 g/dL (14.0-18.0); Mean Corpuscular Hemoglobin 28.5 pg (27.0-31.0); Mean Platelet Volume 10.1 fL (7.4-10.4); Platelet Count 102 10x3/uL (130-400); RBC Distribution Width 16.8 % (11.5-14.5); Red Blood Cell (RBC) Count 2.61 mill/uL (4.70-6.10); White Blood Cell (WBC) Count 9.5 10x3/uL (4.8-10.8)
[2022-11-19 06:49] LABS: Anion Gap 17 mmol/L (10-20); BUN (Urea Nitrogen) 55 mg/dL (8.4-25.7); Calc. Creatinine Clearance 32 mL/min (70-130); Carbon Dioxide 17 mmol/L (23-31); Chloride 107 mmol/L (98-107); Estimated GFR 26; Glucose 153 mg/dL (83-110); Magnesium 2.1 mg/dL (1.6-2.6); Phosphorus 3.6 mg/dL (2.3-4.7); Potassium 5.1 mmol/L (3.5-5.1); Sodium 136 mmol/L (136-145)
[2022-11-19] MEDS ORDERED: Sodium Chloride 0.9% 500 ML IV SCH (08:00)
[2022-11-19] MEDS ORDERED: Sodium Chloride 0.9% 1,000 ML IV SCH (08:00)
[2022-11-19] MEDS: Senokot S 8.6-50 MG TAB PO SCH ×2 (08:25→20:06)
[2022-11-19] MEDS: Atorvastatin Calcium 40 MG TAB PO SCH (08:25)
[2022-11-19] MEDS: Allopurinol 100 MG TAB PO SCH ×2 (08:25→20:13)
[2022-11-19] MEDS: Carvedilol 3.125 MG TAB PO SCH ×3 (08:26→20:15)
[2022-11-19] MEDS: Polyethylene Glycol 3350 17 GM Packet PO SCH (08:26)
[2022-11-19] MEDS ORDERED: Sodium Bicarbonate 150 MEQ in Dextrose 5% in Water 1,000 ML IV SCH (11:00)
[2022-11-19] MEDS ORDERED: EPOETIN ALFA-EPBX (ESRD) 10,000 UNIT/ML VIAL SC SCH (12:00)
[2022-11-19] MEDS: Tamsulosin HCl 0.4 MG CAP PO SCH (20:06)
[2022-11-19] MEDS: Cyclobenzaprine 10 MG TAB PO PRN (20:13)
[2022-11-20] MEDS: traMADol HCl 50 MG TAB PO SCH ×5 (00:05→23:47)
[2022-11-20] MEDS: Acetaminophen/Codeine 30-300mg Tablet PO SCH ×4 (02:13→18:57)
[2022-11-20 07:21] LABS: #Lymphocytes 0.7 thou/uL (1.20-3.40); #Monocytes 0.7 thou/uL (0.11-0.59); #Neutrophils 8.4 thou/uL (1.40-6.50); %Eosinophils 0.5 % (0.0-10.0); %Lymphocytes 6.8 % (21.0-51.0); %Monocytes 6.8 % (0.0-10.0); Mean Corpuscular HGB CONC 30.4 g/dL (32.0-36.0); Mean Platelet Volume 10.1 fL (7.4-10.4); Platelet Count 98 10x3/uL (130-400); Red Blood Cell (RBC) Count 2.59 mill/uL (4.70-6.10); White Blood Cell (WBC) Count 9.8 10x3/uL (4.8-10.8)
[2022-11-20 07:32] LABS: Anion Gap 15 mmol/L (10-20); BUN (Urea Nitrogen) 64 mg/dL (8.4-25.7); Calc. Creatinine Clearance 30 mL/min (70-130); Calcium 7.9 mg/dL (7.8-10.44); Carbon Dioxide 24 mmol/L (23-31); Chloride 99 mmol/L (98-107); Estimated GFR 24; Glucose 168 mg/dL (83-110); Magnesium 2.1 mg/dL (1.6-2.6); Phosphorus 3.9 mg/dL (2.3-4.7); Potassium 4.2 mmol/L (3.5-5.1); Sodium 134 mmol/L (136-145)
[2022-11-20] MEDS: Allopurinol 100 MG TAB PO SCH ×2 (07:35→20:36)
[2022-11-20] MEDS: Atorvastatin Calcium 40 MG TAB PO SCH (07:35)
[2022-11-20] MEDS: Carvedilol 3.125 MG TAB PO SCH ×2 (07:35→20:36)
[2022-11-20] MEDS: Senokot S 8.6-50 MG TAB PO SCH ×2 (07:35→20:54)
[2022-11-20] MEDS: Polyethylene Glycol 3350 17 GM Packet PO SCH (07:35)
[2022-11-20] MEDS: Ferrous Sulfate 325 MG TAB PO SCH ×2 (10:03→18:58)
[2022-11-20] MEDS: Ascorbic Acid 500 mg Chewable Tablet PO SCH ×2 (10:03→20:36)
[2022-11-20] MEDS: Simethicone Chewable 80 MG TAB PO PRN (10:29)
[2022-11-20] MEDS: Sodium Chloride 0.9% 1,000 ML IV SCH (13:49)
[2022-11-20] MEDS: Tamsulosin HCl 0.4 MG CAP PO SCH (20:36)
[2022-11-21] MEDS: Acetaminophen/Codeine 30-300mg Tablet PO SCH ×4 (01:30→18:10)
[2022-11-21] MEDS: traMADol HCl 50 MG TAB PO SCH (06:03)
[2022-11-21] MEDS: Sodium Chloride 0.9% 1,000 ML IV SCH (06:05)
[2022-11-21 09:15] LABS: Hemoglobin 9.7 g/dL (14.0-18.0); Mean Corpuscular HGB CONC 33.4 g/dL (32.0-36.0); Mean Corpuscular Hemoglobin 29.9 pg (27.0-31.0); Mean Corpuscular Volume 89.6 fl (78.0-98.0); RBC Distribution Width 15.8 % (11.5-14.5); Red Blood Cell (RBC) Count 3.24 mill/uL (4.70-6.10)
[2022-11-21] MEDS: Ferrous Sulfate 325 MG TAB PO SCH ×2 (09:15→16:38)
[2022-11-21] MEDS: Allopurinol 100 MG TAB PO SCH ×2 (09:18→21:13)
[2022-11-21] MEDS: Atorvastatin Calcium 40 MG TAB PO SCH (09:18)
[2022-11-21] MEDS: Ascorbic Acid 500 mg Chewable Tablet PO SCH ×2 (09:18→21:14)
[2022-11-21] MEDS: Senokot S 8.6-50 MG TAB PO SCH ×2 (09:20→21:21)
[2022-11-21] MEDS: Carvedilol 3.125 MG TAB PO SCH ×2 (09:20→21:19)
[2022-11-21] MEDS: Polyethylene Glycol 3350 17 GM Packet PO SCH (09:20)
[2022-11-21 09:22] LABS: Anion Gap 17 mmol/L (10-20); BUN (Urea Nitrogen) 71 mg/dL (8.4-25.7); Calc. Creatinine Clearance 33 mL/min (70-130); Calcium 8.2 mg/dL (7.8-10.44); Carbon Dioxide 20 mmol/L (23-31); Chloride 100 mmol/L (98-107); Estimated GFR 27; Glucose 148 mg/dL (83-110); Potassium 4.3 mmol/L (3.5-5.1); Sodium 133 mmol/L (136-145)
[2022-11-21 13:02] LABS: Anisocytosis SLIGHT = 6-15 cells (100X) (0-5/hpf); Band 1 % (5-11); Hypochromia SLIGHT = 6-15 cells (100X) (0-5/hpf); Large Platelets SLIGHT; Lymphocytes 6 % (21-51); MDiff Complete? YES; Monocytes 1 % (0-10); Neutrophil 92 % (42-75); Platelet Count 113 10x3/uL (130-400); Platelet Morphology Comment Appears Decreased; White Blood Cell (WBC) Count 16.1 10x3/uL (4.8-10.8)
[2022-11-21] MEDS ORDERED: Oxazepam 10 MG CAP PO SCH (14:00)
[2022-11-21] MEDS: Tamsulosin HCl 0.4 MG CAP PO SCH (21:19)
[2022-11-22] MEDS: Acetaminophen/Codeine 30-300mg Tablet PO SCH ×3 (01:30→13:01)
[2022-11-22 06:36] LABS: Band 10 % (5-11); Hemoglobin 7.9 g/dL (14.0-18.0); Hypochromia SLIGHT = 6-15 cells (100X) (0-5/hpf); Lymphocytes 1 % (21-51); MDiff Complete? YES; Mean Corpuscular HGB CONC 33.2 g/dL (32.0-36.0); Mean Corpuscular Hemoglobin 29.9 pg (27.0-31.0); Mean Corpuscular Volume 89.9 fl (78.0-98.0); Mean Platelet Volume 10.8 fL (7.4-10.4); Monocytes 9 % (0-10); Neutrophil 80 % (42-75); Platelet Count 113 10x3/uL (130-400); Platelet Morphology Comment Appears Decreased; RBC Distribution Width 15.9 % (11.5-14.5); Red Blood Cell (RBC) Count 2.64 mill/uL (4.70-6.10); White Blood Cell (WBC) Count 13.4 10x3/uL (4.8-10.8)
[2022-11-22 06:38] LABS: Anion Gap 16 mmol/L (10-20); BUN (Urea Nitrogen) 87 mg/dL (8.4-25.7); Calc. Creatinine Clearance 26 mL/min (70-130); Calcium 7.8 mg/dL (7.8-10.44); Carbon Dioxide 22 mmol/L (23-31); Chloride 100 mmol/L (98-107); Estimated GFR 20; Glucose 154 mg/dL (83-110); Potassium 4.5 mmol/L (3.5-5.1); Sodium 133 mmol/L (136-145)
[2022-11-22] MEDS: Carvedilol 3.125 MG TAB PO SCH ×2 (10:39→21:00)
[2022-11-22] MEDS: Atorvastatin Calcium 40 MG TAB PO SCH (10:39)
[2022-11-22] MEDS: Senokot S 8.6-50 MG TAB PO SCH ×2 (10:39→21:06)
[2022-11-22] MEDS: Ascorbic Acid 500 mg Chewable Tablet PO SCH ×2 (10:39→21:05)
[2022-11-22] MEDS: Allopurinol 100 MG TAB PO SCH ×2 (10:39→21:05)
[2022-11-22] MEDS: Ferrous Sulfate 325 MG TAB PO SCH ×3 (10:39→21:06)
[2022-11-22] MEDS: Polyethylene Glycol 3350 17 GM Packet PO SCH (10:40)
[2022-11-22] MEDS ORDERED: Sodium Chloride 0.9% 1,000 ML IV SCH ×2 (12:30→16:26)
[2022-11-22] MEDS ORDERED: Dronabinol 2.5 MG CAP PO SCH (17:00)
[2022-11-22 17:15] LABS: Anion Gap 16 mmol/L (10-20); BUN (Urea Nitrogen) 94 mg/dL (8.4-25.7); Calc. Creatinine Clearance 24 mL/min (70-130); Calcium 8.1 mg/dL (7.8-10.44); Carbon Dioxide 22 mmol/L (23-31); Chloride 99 mmol/L (98-107); Estimated GFR 18; Glucose 153 mg/dL (83-110); Magnesium 2.2 mg/dL (1.6-2.6); Phosphorus 4.3 mg/dL (2.3-4.7); Potassium 4.6 mmol/L (3.5-5.1); Sodium 132 mmol/L (136-145)
[2022-11-22] MEDS ORDERED: Sodium Bicarbonate 150 MEQ in Dextrose 5% in Water 1,000 ML IV SCH ×2 (17:45→18:03)
[2022-11-22] MEDS ORDERED: Gabapentin 100 MG CAP PO SCH (21:00)
[2022-11-22] MEDS: Tamsulosin HCl 0.4 MG CAP PO SCH (21:05)
[2022-11-22] MEDS ORDERED: Furosemide 20 MG/2 ML VIAL SLOW IVP SCH (21:30)
[2022-11-22] MEDS ORDERED: Hydrocortisone Sod Succ/PF 100 mg/2 ml Vial IVP SCH (22:00)
[2022-11-22 22:26] LABS: Hemoglobin 7.1 g/dL (14.0-18.0); Mean Corpuscular HGB CONC 32.2 g/dL (32.0-36.0); Mean Corpuscular Hemoglobin 28.8 pg (27.0-31.0); Mean Corpuscular Volume 89.5 fl (78.0-98.0); Mean Platelet Volume 10.3 fL (7.4-10.4); Platelet Count 114 10x3/uL (130-400); RBC Distribution Width 15.7 % (11.5-14.5); Red Blood Cell (RBC) Count 2.45 mill/uL (4.70-6.10); White Blood Cell (WBC) Count 12.5 10x3/uL (4.8-10.8)
[2022-11-22 23:08] LABS: Anisocytosis SLIGHT = 6-15 cells (100X) (0-5/hpf); Band 10 % (5-11); Lymphocytes 2 % (21-51); MDiff Complete? YES; Monocytes 4 % (0-10); Neutrophil 84 % (42-75); Platelet Morphology Comment Appears Decreased
[2022-11-22] MEDS ORDERED: Midodrine HCl 5 MG TAB PO SCH (23:15)
[2022-11-23 00:05] LABS: Actual Bicarbonate (HCO3a) 22.9 mEq/L (22-28); CO2 Tension 34.5 mmHg (35.0-45.0); Calcium, Ionized (arterial) 1.03 mmol/L (1.12-1.30); Carboxyhemoglobin (COHb) 1.4 gm% (0.0-3.0); Hemoglobin (Hb) 8.1 g/dL (14.0-18.0); O2 Tension (PaO2), arterial 75.5 mmHg (> 60.0); Potassium - ABG Lab 4.29 mmol/L (3.70-5.30); pH, Arterial 7.44 (7.35-7.45)
[2022-11-23 00:06] LABS: Puncture Site LR
[2022-11-23 00:07] LABS: ALV-art Gradient 109.535 mmHg (0-20)
[2022-11-23] MEDS ORDERED: Hydrocortisone Sod Succ/PF 100 mg/2 ml Vial IVP SCH (06:00)
[2022-11-23 06:23] LABS: Anion Gap 16 mmol/L (10-20); BUN (Urea Nitrogen) 106 mg/dL (8.4-25.7); Calc. Creatinine Clearance 25 mL/min (70-130); Calcium 7.8 mg/dL (7.8-10.44); Carbon Dioxide 20 mmol/L (23-31); Chloride 100 mmol/L (98-107); Estimated GFR 19; Glucose 175 mg/dL (83-110); Magnesium 2.3 mg/dL (1.6-2.6); Phosphorus 4.7 mg/dL (2.3-4.7); Potassium 4.4 mmol/L (3.5-5.1); Sodium 132 mmol/L (136-145)
[2022-11-23 06:24] LABS: Band 28 % (5-11); Hemoglobin 7.4 g/dL (14.0-18.0); Hypochromia SLIGHT = 6-15 cells (100X) (0-5/hpf); Lymphocytes 8 % (21-51); MDiff Complete? YES; Mean Corpuscular HGB CONC 32.3 g/dL (32.0-36.0); Mean Corpuscular Hemoglobin 29.4 pg (27.0-31.0); Mean Corpuscular Volume 90.8 fl (78.0-98.0); Mean Platelet Volume 10.1 fL (7.4-10.4); Neutrophil 64 % (42-75); Platelet Count 110 10x3/uL (130-400); Platelet Morphology Comment Appears Decreased; RBC Distribution Width 15.5 % (11.5-14.5); Red Blood Cell (RBC) Count 2.51 mill/uL (4.70-6.10); White Blood Cell (WBC) Count 11.4 10x3/uL (4.8-10.8)
[2022-11-23] MEDS: Ascorbic Acid 500 mg Chewable Tablet PO SCH ×2 (08:00→19:50)
[2022-11-23] MEDS: Atorvastatin Calcium 40 MG TAB PO SCH (08:00)
[2022-11-23] MEDS: Carvedilol 3.125 MG TAB PO SCH ×2 (08:00→19:48)
[2022-11-23] MEDS: Dronabinol 2.5 MG CAP PO SCH ×2 (08:00→16:19)
[2022-11-23] MEDS: Ferrous Sulfate 325 MG TAB PO SCH ×2 (08:00→19:50)
[2022-11-23] MEDS: Allopurinol 100 MG TAB PO SCH ×2 (08:00→19:50)
[2022-11-23] MEDS: Polyethylene Glycol 3350 17 GM Packet PO SCH (08:01)
[2022-11-23] MEDS: Senokot S 8.6-50 MG TAB PO SCH ×2 (08:01→19:50)
[2022-11-23] MEDS ORDERED: Midodrine HCl 5 MG TAB PO SCH (09:00)
[2022-11-23 12:14] LABS: Hemoglobin 8.1 g/dL (14.0-18.0)
[2022-11-23 12:27] LABS: Anion Gap 16 mmol/L (10-20); BUN (Urea Nitrogen) 109 mg/dL (8.4-25.7); Calc. Creatinine Clearance 27 mL/min (70-130); Calcium 8.2 mg/dL (7.8-10.44); Carbon Dioxide 20 mmol/L (23-31); Chloride 100 mmol/L (98-107); Estimated GFR 21; Glucose 194 mg/dL (83-110); Potassium 4.3 mmol/L (3.5-5.1); Sodium 132 mmol/L (136-145)
[2022-11-23] MEDS: Tamsulosin HCl 0.4 MG CAP PO SCH (19:50)
[2022-11-24 05:44] LABS: #Eosinphils 0.1 thou/uL (0.0-0.7); #Lymphocytes 0.4 thou/uL (1.20-3.40); #Monocytes 0.7 thou/uL (0.11-0.59); #Neutrophils 9.5 thou/uL (1.40-6.50); %Lymphocytes 3.7 % (21.0-51.0); %Monocytes 6.1 % (0.0-10.0); %Neutrophils 89.2 % (42.0-75.0); Hemoglobin 8.5 g/dL (14.0-18.0); Mean Corpuscular HGB CONC 32.7 g/dL (32.0-36.0); Mean Corpuscular Hemoglobin 29.3 pg (27.0-31.0); Mean Corpuscular Volume 89.8 fl (78.0-98.0); Mean Platelet Volume 9.7 fL (7.4-10.4); Platelet Count 130 10x3/uL (130-400); RBC Distribution Width 15.5 % (11.5-14.5); Red Blood Cell (RBC) Count 2.88 mill/uL (4.70-6.10); White Blood Cell (WBC) Count 10.7 10x3/uL (4.8-10.8)
[2022-11-24 06:08] LABS: Anion Gap 15 mmol/L (10-20); BUN (Urea Nitrogen) 104 mg/dL (8.4-25.7); Calc. Creatinine Clearance 36 mL/min (70-130); Calcium 8.1 mg/dL (7.8-10.44); Carbon Dioxide 21 mmol/L (23-31); Chloride 99 mmol/L (98-107); Estimated GFR 30; Glucose 148 mg/dL (83-110); Magnesium 2.4 mg/dL (1.6-2.6); Phosphorus 3.6 mg/dL (2.3-4.7); Potassium 3.7 mmol/L (3.5-5.1); Sodium 131 mmol/L (136-145)
[2022-11-24] MEDS: Dronabinol 2.5 MG CAP PO SCH (06:46)
[2022-11-24] MEDS ORDERED: Heparin 5,000 UNITS/ML VIAL SC SCH (09:00)
[2022-11-24] MEDS: Atorvastatin Calcium 40 MG TAB PO SCH (09:15)
[2022-11-24] MEDS: Ferrous Sulfate 325 MG TAB PO SCH (09:15)
[2022-11-24] MEDS: Senokot S 8.6-50 MG TAB PO SCH (09:15)
[2022-11-24] MEDS: Polyethylene Glycol 3350 17 GM Packet PO SCH (09:15)
[2022-11-24] MEDS: Ascorbic Acid 500 mg Chewable Tablet PO SCH (09:15)
[2022-11-24] MEDS: Carvedilol 3.125 MG TAB PO SCH (09:15)
[2022-11-24] MEDS: Allopurinol 100 MG TAB PO SCH (09:15)
[2022-11-24 11:38] VITALS: BP 154/87; TEMP 98.1
== END 2022-11-24 15:14 | DRG 481 ==
LOC: ERS 20:20 → SURG B 22:27
PROVIDERS: ADMIT Surgery; ATTEND Surgery
PROC: 0QS906Z Reposition Left Femoral Shaft with Intramedullary Internal Fixation Device, Open Approach (ICD-10-PCS; principal; 2022-11-18)
PROC: 30233N1 Transfusion of Nonautologous Red Blood Cells into Peripheral Vein, Percutaneous Approach (ICD-10-PCS; 2022-11-19)
DX: S72.302A Unspecified fracture of shaft of left femur, initial encounter for closed fracture (principal); D62 Acute posthemorrhagic anemia; E87.1 Hypo-osmolality and hyponatremia; I50.32 Chronic diastolic (congestive) heart failure; I13.0 Hypertensive heart and chronic kidney disease with heart failure and stage 1 through stage 4 chronic kidney disease, or unspecified chronic kidney disease; I42.9 Cardiomyopathy, unspecified; N17.9 Acute kidney failure, unspecified; N18.4 Chronic kidney disease, stage 4 (severe); Z51.5 Encounter for palliative care; E78.5 Hyperlipidemia, unspecified; I25.10 Atherosclerotic heart disease of native coronary artery without angina pectoris; K21.9 Gastro-esophageal reflux disease without esophagitis; M10.9 Gout, unspecified; F41.9 Anxiety disorder, unspecified; W18.30XA Fall on same level, unspecified, initial encounter; E11.22 Type 2 diabetes mellitus with diabetic chronic kidney disease; D63.1 Anemia in chronic kidney disease; E87.5 Hyperkalemia; Z87.891 Personal history of nicotine dependence; Z79.899 Other long term (current) drug therapy; Z79.82 Long term (current) use of aspirin; Z95.810 Presence of automatic (implantable) cardiac defibrillator; Z95.1 Presence of aortocoronary bypass graft
CPT/HCPCS: 36415; 36416; 36430; 70450; 71045; 76770; 80048; 80053; 82533; 82550; 82553; 82805; 83735; 83880; 84100; 84484; 85025; 85610; 85730; 86850; 86900; 86901; 93005; 93010; 93970; 96374; 97139; C1713; J1100; J1644; J1720; J1815; J1940; J2270; J2272; J2370; J2405; J2765; J3475; J3490; J7050; J7070; P9016; Q0167; Q5105

== ENCOUNTER 2023-03-07 09:54 | Inpatient (IN) | payer OTHER ==
[2023-03-07 11:08] LABS: #Eosinphils 0.1 thou/uL (0.0-0.7); #Monocytes 0.4 thou/uL (0.11-0.59); #Neutrophils 2.9 thou/uL (1.40-6.50); %Basophils 0.2 % (0.0-1.0); %Eosinophils 2.1 % (0.0-10.0); %Lymphocytes 21.4 % (21.0-51.0); %Monocytes 8.3 % (0.0-10.0); %Neutrophils 67.8 % (42.0-75.0); Hemoglobin 7.6 g/dL (14.0-18.0); Mean Corpuscular HGB CONC 29.9 g/dL (32.0-36.0); Mean Corpuscular Hemoglobin 26.5 pg (27.0-31.0); Mean Corpuscular Volume 88.5 fl (78.0-98.0); Platelet Count 182 10x3/uL (130-400); RBC Distribution Width 16.2 % (11.5-14.5); Red Blood Cell (RBC) Count 2.87 mill/uL (4.70-6.10); White Blood Cell (WBC) Count 4.3 10x3/uL (4.8-10.8)
[2023-03-07 11:46] LABS: ALT (SGPT) 9 U/L (8-55); AST (SGOT) 9 U/L (5-34); Albumin 2.5 g/dL (3.4-4.8); Alkaline Phosphatase 105 U/L (40-110); Anion Gap 11 mmol/L (10-20); BUN (Urea Nitrogen) 80 mg/dL (8.4-25.7); Bilirubin, Total 0.3 mg/dL (0.2-1.2); Calc. Creatinine Clearance 0 mL/min (70-130); Calcium 7.9 mg/dL (7.8-10.44); Carbon Dioxide 23 mmol/L (23-31); Chloride 105 mmol/L (98-107); Estimated GFR 32; Globulin 2.8 g/dL (2.4-3.5); Glucose 114 mg/dL (83-110); Potassium 5.6 mmol/L (3.5-5.1); Protein, Total 5.3 g/dL (5.8-8.1); Sodium 133 mmol/L (136-145)
[2023-03-07 11:56] LABS: CKMB 2.4 ng/mL (0-6.6)
[2023-03-07 14:37] LABS: Bacteria/HPF None Seen HPF (None Seen); Bilirubin Negative (Negative); Blood, Urine Negative (Negative); CAUTI Indications for Culture Dysuria,urgency,freq; Clarity Clear (Clear); Glucose, Urine (Dipstick) Normal (Negative); Ketone, Urine Negative (Negative); Leukocyte Negative Leu/uL (Negative); Nitrite Negative (Negative); Protein, Urine (Dipstick) Negative (Neg-Trace); RBC/HPF None Seen HPF (0-3); Squamous Epithelial 0-3 HPF (0-3); Urobilinogen Normal mg/dL (Less than 2); WBC/HPF 0-3 HPF (0-3)
[2023-03-07 14:39] LABS: Urine Culture Reflex No No
[2023-03-07] MEDS ORDERED: Furosemide 40 MG/4 ML VIAL ONE (15:33)
[2023-03-07] MEDS ORDERED: Cyclobenzaprine 10 MG TAB ONE (17:28)
[2023-03-07] MEDS ORDERED: Aspirin Chewable 81 MG TAB ONE (17:56)
[2023-03-07] MEDS ORDERED: Ondansetron ODT 4 MG TAB PO PRN (18:06)
[2023-03-07] MEDS ORDERED: Acetaminophen 650 MG Suppository PR PRN (18:06)
[2023-03-07] MEDS ORDERED: Ondansetron PF 4 MG/2 ML Vial IVP PRN (18:06)
[2023-03-07 18:29] LABS: Troponin I 0.043 ng/mL (< 0.028)
[2023-03-07 22:39] VITALS: BMI 33.5
[2023-03-07] MEDS: Acetaminophen 325 MG TAB PO PRN (22:57)
[2023-03-07] MEDS: Famotidine 20 MG TAB PO SCH (22:57)
[2023-03-08 00:13] LABS: Magnesium 1.9 mg/dL (1.6-2.6)
[2023-03-08 01:02] LABS: Troponin I 0.047 ng/mL (< 0.028)
[2023-03-08 05:15] LABS: #Eosinphils 0.1 thou/uL (0.0-0.7); #Monocytes 0.4 thou/uL (0.11-0.59); #Neutrophils 2.3 thou/uL (1.40-6.50); %Basophils 0.3 % (0.0-1.0); %Eosinophils 2.4 % (0.0-10.0); %Lymphocytes 27.9 % (21.0-51.0); %Monocytes 9.5 % (0.0-10.0); %Neutrophils 59.6 % (42.0-75.0); Mean Corpuscular HGB CONC 30.1 g/dL (32.0-36.0); Mean Corpuscular Hemoglobin 26.7 pg (27.0-31.0); Mean Corpuscular Volume 88.7 fl (78.0-98.0); Mean Platelet Volume 11.5 fL (7.4-10.4); Platelet Count 197 10x3/uL (130-400); RBC Distribution Width 16.2 % (11.5-14.5); White Blood Cell (WBC) Count 3.8 10x3/uL (4.8-10.8)
[2023-03-08 05:40] LABS: Anion Gap 15 mmol/L (10-20); BUN (Urea Nitrogen) 82 mg/dL (8.4-25.7); Calc. Creatinine Clearance 247 mL/min (70-130); Calcium 8.2 mg/dL (7.8-10.44); Carbon Dioxide 20 mmol/L (23-31); Chloride 106 mmol/L (98-107); Estimated GFR 36; Glucose 103 mg/dL (83-110); Potassium 5.5 mmol/L (3.5-5.1); Sodium 135 mmol/L (136-145)
[2023-03-08] MEDS: Acetaminophen 325 MG TAB PO PRN (05:44)
[2023-03-08] MEDS: Furosemide 40 MG/4 ML VIAL SLOW IVP SCH ×2 (05:46→14:14)
[2023-03-08] MEDS ORDERED: traMADol HCl 50 MG TAB PO PRN (08:47)
[2023-03-08] MEDS: Aspirin Chewable 81 MG TAB PO SCH (09:11)
[2023-03-08] MEDS: Carvedilol 3.125 MG TAB PO SCH ×2 (09:11→21:11)
[2023-03-08] MEDS: Heparin 5,000 UNITS/ML VIAL SC SCH ×2 (09:11→21:12)
[2023-03-08] MEDS ORDERED: Lisinopril 5 MG TAB PO SCH (21:00)
[2023-03-08] MEDS: Atorvastatin Calcium 40 MG TAB PO SCH (21:11)
[2023-03-08] MEDS: HYDROcodone/Acetaminophen 10/325 mg Tablet PO SCH (21:12)
[2023-03-08] MEDS: Famotidine 20 MG TAB PO SCH (21:12)
[2023-03-08] MEDS: Tamsulosin HCl 0.4 MG CAP PO SCH (21:13)
[2023-03-08] MEDS: ALPRAZolam 0.25 MG TAB PO PRN (21:17)
[2023-03-09 04:33] LABS: #Eosinphils 0.1 thou/uL (0.0-0.7); #Monocytes 0.3 thou/uL (0.11-0.59); #Neutrophils 1.8 thou/uL (1.40-6.50); %Basophils 0.3 % (0.0-1.0); %Eosinophils 2.6 % (0.0-10.0); %Lymphocytes 29.8 % (21.0-51.0); %Monocytes 9.4 % (0.0-10.0); %Neutrophils 57.6 % (42.0-75.0); Hemoglobin 7.8 g/dL (14.0-18.0); Mean Corpuscular HGB CONC 30.1 g/dL (32.0-36.0); Mean Corpuscular Hemoglobin 26.2 pg (27.0-31.0); Mean Corpuscular Volume 86.9 fl (78.0-98.0); Mean Platelet Volume 10.8 fL (7.4-10.4); Platelet Count 192 10x3/uL (130-400); RBC Distribution Width 16.1 % (11.5-14.5); Red Blood Cell (RBC) Count 2.98 mill/uL (4.70-6.10); White Blood Cell (WBC) Count 3.1 10x3/uL (4.8-10.8)
[2023-03-09 05:06] LABS: Anion Gap 12 mmol/L (10-20); BUN (Urea Nitrogen) 72 mg/dL (8.4-25.7); Calc. Creatinine Clearance 49 mL/min (70-130); Carbon Dioxide 24 mmol/L (23-31); Chloride 103 mmol/L (98-107); Estimated GFR 37; Glucose 90 mg/dL (83-110); Potassium 4.9 mmol/L (3.5-5.1); Sodium 134 mmol/L (136-145)
[2023-03-09] MEDS: Furosemide 40 MG/4 ML VIAL SLOW IVP SCH ×2 (06:59→14:03)
[2023-03-09] MEDS: Heparin 5,000 UNITS/ML VIAL SC SCH ×2 (08:24→21:53)
[2023-03-09] MEDS: Carvedilol 3.125 MG TAB PO SCH ×2 (08:24→21:51)
[2023-03-09] MEDS: Aspirin Chewable 81 MG TAB PO SCH (08:24)
[2023-03-09] MEDS: Lisinopril 5 MG TAB PO SCH ×2 (08:27→21:52)
[2023-03-09] MEDS: Spironolactone 25 MG TAB PO SCH (08:27)
[2023-03-09] MEDS: HYDROcodone/Acetaminophen 10/325 mg Tablet PO SCH ×2 (08:27→21:53)
[2023-03-09] MEDS: Famotidine 20 MG TAB PO SCH (21:52)
[2023-03-09] MEDS: Atorvastatin Calcium 40 MG TAB PO SCH (21:52)
[2023-03-09] MEDS: Tamsulosin HCl 0.4 MG CAP PO SCH (21:52)
[2023-03-09] MEDS: ALPRAZolam 0.25 MG TAB PO PRN (21:57)
[2023-03-10 04:46] LABS: #Eosinphils 0.1 thou/uL (0.0-0.7); #Monocytes 0.3 thou/uL (0.11-0.59); #Neutrophils 1.7 thou/uL (1.40-6.50); %Basophils 0.3 % (0.0-1.0); %Eosinophils 3.4 % (0.0-10.0); %Monocytes 9.2 % (0.0-10.0); %Neutrophils 56.1 % (42.0-75.0); Hemoglobin 7.8 g/dL (14.0-18.0); Mean Corpuscular HGB CONC 29.9 g/dL (32.0-36.0); Mean Platelet Volume 11.7 fL (7.4-10.4); Platelet Count 179 10x3/uL (130-400); White Blood Cell (WBC) Count 2.9 10x3/uL (4.8-10.8)
[2023-03-10 05:17] LABS: Anion Gap 12 mmol/L (10-20); BUN (Urea Nitrogen) 68 mg/dL (8.4-25.7); Calc. Creatinine Clearance 44 mL/min (70-130); Calcium 7.9 mg/dL (7.8-10.44); Carbon Dioxide 25 mmol/L (23-31); Chloride 104 mmol/L (98-107); Estimated GFR 35; Glucose 100 mg/dL (83-110); Potassium 4.9 mmol/L (3.5-5.1); Sodium 136 mmol/L (136-145)
[2023-03-10] MEDS: Furosemide 40 MG/4 ML VIAL SLOW IVP SCH (06:22)
[2023-03-10] MEDS ORDERED: Furosemide 80 MG TAB PO SCH (09:00)
[2023-03-10] MEDS: Lisinopril 5 MG TAB PO SCH (09:14)
[2023-03-10] MEDS: Aspirin Chewable 81 MG TAB PO SCH (09:15)
[2023-03-10] MEDS: Heparin 5,000 UNITS/ML VIAL SC SCH (09:15)
[2023-03-10] MEDS: HYDROcodone/Acetaminophen 10/325 mg Tablet PO SCH (09:15)
[2023-03-10] MEDS: Carvedilol 3.125 MG TAB PO SCH (09:15)
[2023-03-10] MEDS: Spironolactone 25 MG TAB PO SCH (09:15)
[2023-03-10 12:08] VITALS: BP 106/58; TEMP 98
== END 2023-03-10 13:15 | disposition home or self-care (01) | DRG 291 ==
LOC: ERS 09:54 → ERHOLD 16:15 → 2NO 22:08
PROVIDERS: ADMIT Internal Medicine; ATTEND Hospitalist
DX: I13.0 Hypertensive heart and chronic kidney disease with heart failure and stage 1 through stage 4 chronic kidney disease, or unspecified chronic kidney disease (principal); I50.23 Acute on chronic systolic (congestive) heart failure; E78.5 Hyperlipidemia, unspecified; I25.10 Atherosclerotic heart disease of native coronary artery without angina pectoris; K21.9 Gastro-esophageal reflux disease without esophagitis; M10.9 Gout, unspecified; Z96.641 Presence of right artificial hip joint; F41.9 Anxiety disorder, unspecified; I25.5 Ischemic cardiomyopathy; E11.22 Type 2 diabetes mellitus with diabetic chronic kidney disease; N18.30 Chronic kidney disease, stage 3 unspecified; E87.5 Hyperkalemia; Z95.810 Presence of automatic (implantable) cardiac defibrillator; Z98.890 Other specified postprocedural states; Z87.891 Personal history of nicotine dependence; Z95.1 Presence of aortocoronary bypass graft; Z79.899 Other long term (current) drug therapy; Z79.82 Long term (current) use of aspirin
CPT/HCPCS: 36415; 36416; 71045; 80048; 80053; 81001; 82553; 83735; 83880; 84443; 84484; 85025; 87086; 93005; 93798; 94760; 96374; 97139; J1644; J1940

== ENCOUNTER 2023-03-29 01:46 | Inpatient (IN) | payer OTHER ==
[2023-03-29 02:47] LABS: #Eosinphils 0.1 thou/uL (0.0-0.7); #Monocytes 0.3 thou/uL (0.11-0.59); #Neutrophils 2.9 thou/uL (1.40-6.50); %Basophils 0.3 % (0.0-1.0); %Eosinophils 1.8 % (0.0-10.0); %Lymphocytes 15.6 % (21.0-51.0); %Monocytes 8.2 % (0.0-10.0); %Neutrophils 73.6 % (42.0-75.0); Hematocrit 23.8 % (42.0-52.0); Hemoglobin 7.4 g/dL (14.0-18.0); Mean Corpuscular HGB CONC 31.1 g/dL (32.0-36.0); Mean Corpuscular Hemoglobin 26.8 pg (27.0-31.0); Mean Corpuscular Volume 86.2 fl (78.0-98.0); Mean Platelet Volume 12.1 fL (7.4-10.4); Platelet Count 146 10x3/uL (130-400); RBC Distribution Width 17.9 % (11.5-14.5); Red Blood Cell (RBC) Count 2.76 mill/uL (4.70-6.10); White Blood Cell (WBC) Count 3.9 10x3/uL (4.8-10.8)
[2023-03-29 03:11] LABS: ALT (SGPT) 10 U/L (8-55); AST (SGOT) 13 U/L (5-34); Albumin 2.7 g/dL (3.4-4.8); Alkaline Phosphatase 115 U/L (40-110); Anion Gap 11 mmol/L (10-20); BUN (Urea Nitrogen) 89 mg/dL (8.4-25.7); Bilirubin, Total 0.3 mg/dL (0.2-1.2); Calc. Creatinine Clearance 0 mL/min (70-130); Calcium 8.3 mg/dL (7.8-10.44); Carbon Dioxide 22 mmol/L (23-31); Chloride 103 mmol/L (98-107); Estimated GFR 31; Globulin 2.9 g/dL (2.4-3.5); Glucose 130 mg/dL (83-110); Protein, Total 5.6 g/dL (5.8-8.1); Sodium 131 mmol/L (136-145)
[2023-03-29 03:13] LABS: Troponin I 0.035 ng/mL (< 0.028)
[2023-03-29] MEDS ORDERED: Furosemide 40 MG/4 ML VIAL ONE (03:36)
[2023-03-29] MEDS ORDERED: fentaNYL 50 mcg/mL 1 mL Vial ONE (03:36)
[2023-03-29] MEDS ORDERED: Ondansetron PF 4 MG/2 ML Vial ONE (03:36)
[2023-03-29] MEDS ORDERED: Morphine 4 MG/ML VIAL ONE (04:41)
[2023-03-29 05:37] LABS: Bacteria/HPF None Seen HPF (None Seen); Bilirubin Negative (Negative); Blood, Urine Negative (Negative); CAUTI Indications for Culture Alt mental st,lethar; Clarity Clear (Clear); Glucose, Urine (Dipstick) Normal (Negative); Ketone, Urine Negative (Negative); Leukocyte Negative Leu/uL (Negative); Nitrite Negative (Negative); Protein, Urine (Dipstick) Negative (Neg-Trace); RBC/HPF 0-3 HPF (0-3); Specific Gravity, Urine 1.009 (1.002-1.036); Squamous Epithelial 0-3 HPF (0-3); Urobilinogen Normal mg/dL (Less than 2); WBC/HPF 0-3 HPF (0-3)
[2023-03-29 05:42] LABS: Urine Culture Reflex No No
[2023-03-29] MEDS: Furosemide 40 MG/4 ML VIAL SLOW IVP SCH ×2 (06:13→18:15)
[2023-03-29] MEDS ORDERED: HYDROcodone/Acetaminophen 7.5/325 mg Tablet ONE (06:14)
[2023-03-29] MEDS ORDERED: ALPRAZolam 0.25 MG TAB ONE (06:14)
[2023-03-29] MEDS: HYDROcodone/Acetaminophen 7.5/325 mg Tablet PO PRN ×4 (06:20→23:04)
[2023-03-29 06:21] LABS: Troponin I 0.055 ng/mL (< 0.028)
[2023-03-29] MEDS: ALPRAZolam 0.25 MG TAB PO PRN (06:22)
[2023-03-29] MEDS ORDERED: Lisinopril 5 MG TAB PO SCH (09:00)
[2023-03-29 09:10] LABS: Troponin I 0.044 ng/mL (< 0.028)
[2023-03-29] MEDS: Famotidine 20 MG TAB PO SCH (10:00)
[2023-03-29] MEDS: Spironolactone 25 MG TAB PO SCH (10:00)
[2023-03-29] MEDS: Aspirin Chewable 81 MG TAB PO SCH (10:01)
[2023-03-29] MEDS: Carvedilol 3.125 MG TAB PO SCH ×2 (10:01→20:26)
[2023-03-29] MEDS: Polyethylene Glycol 3350 17 GM Packet PO SCH (10:02)
[2023-03-29] MEDS: Allopurinol 100 MG TAB PO SCH (10:02)
[2023-03-29] MEDS: cefTRIAXone\\ROCEPHIN 1 GM in Sodium Chloride 0.9% 100 ML IVPB SCH (10:03)
[2023-03-29] MEDS: Albumin 25% 25 GM/100 ML BOT IVPB SCH ×2 (12:32→18:37)
[2023-03-29] MEDS: Atorvastatin Calcium 40 MG TAB PO SCH (20:26)
[2023-03-29] MEDS: Tamsulosin HCl 0.4 MG CAP PO SCH (20:26)
[2023-03-30 04:40] LABS: #Eosinphils 0.1 thou/uL (0.0-0.7); #Monocytes 0.3 thou/uL (0.11-0.59); %Basophils 0.3 % (0.0-1.0); %Eosinophils 2.4 % (0.0-10.0); %Lymphocytes 21.6 % (21.0-51.0); %Monocytes 8.8 % (0.0-10.0); %Neutrophils 66.2 % (42.0-75.0); Mean Corpuscular HGB CONC 30.4 g/dL (32.0-36.0); Mean Corpuscular Hemoglobin 26.7 pg (27.0-31.0); Mean Corpuscular Volume 87.8 fl (78.0-98.0); RBC Distribution Width 18.1 % (11.5-14.5); Red Blood Cell (RBC) Count 2.62 mill/uL (4.70-6.10)
[2023-03-30 04:45] LABS: Platelet Count 116 10x3/uL (130-400)
[2023-03-30 04:54] LABS: Anion Gap 12 mmol/L (10-20); BUN (Urea Nitrogen) 82 mg/dL (8.4-25.7); Calc. Creatinine Clearance 55 mL/min (70-130); Carbon Dioxide 23 mmol/L (23-31); Chloride 103 mmol/L (98-107); Estimated GFR 36; Glucose 94 mg/dL (83-110); Potassium 4.9 mmol/L (3.5-5.1); Sodium 133 mmol/L (136-145)
[2023-03-30 05:12] LABS: T4 4.29 ug/dL (4.87-11.72); Thyroid Stimulating Hormone 1.9655 uIU/mL (0.35-4.94)
[2023-03-30] MEDS: Furosemide 40 MG/4 ML VIAL SLOW IVP SCH ×2 (05:49→17:04)
[2023-03-30] MEDS: Aspirin Chewable 81 MG TAB PO SCH (09:30)
[2023-03-30] MEDS: HYDROcodone/Acetaminophen 7.5/325 mg Tablet PO PRN ×3 (09:30→21:03)
[2023-03-30] MEDS: Famotidine 20 MG TAB PO SCH (09:30)
[2023-03-30] MEDS: Polyethylene Glycol 3350 17 GM Packet PO SCH (09:30)
[2023-03-30] MEDS: Carvedilol 3.125 MG TAB PO SCH ×2 (09:31→21:03)
[2023-03-30] MEDS: Allopurinol 100 MG TAB PO SCH (09:31)
[2023-03-30] MEDS: Spironolactone 25 MG TAB PO SCH ×2 (09:31→17:04)
[2023-03-30] MEDS: cefTRIAXone\\ROCEPHIN 1 GM in Sodium Chloride 0.9% 100 ML IVPB SCH (09:31)
[2023-03-30 17:36] LABS: Hematocrit 28.4 % (42.0-52.0); Hemoglobin 8.6 g/dL (14.0-18.0)
[2023-03-30] MEDS: Atorvastatin Calcium 40 MG TAB PO SCH (21:02)
[2023-03-30] MEDS: Tamsulosin HCl 0.4 MG CAP PO SCH (21:02)
[2023-03-30] MEDS: Senokot S 8.6-50 MG TAB PO PRN (21:02)
[2023-03-30] MEDS: ALPRAZolam 0.25 MG TAB PO PRN (21:43)
[2023-03-31] MEDS: HYDROcodone/Acetaminophen 7.5/325 mg Tablet PO PRN ×3 (02:06→18:50)
[2023-03-31 03:57] LABS: Hemoglobin 7.8 g/dL (14.0-18.0); Mean Corpuscular HGB CONC 31.2 g/dL (32.0-36.0); Mean Corpuscular Volume 86.5 fl (78.0-98.0); Mean Platelet Volume 12.4 fL (7.4-10.4); Platelet Count 134 10x3/uL (130-400); RBC Distribution Width 18.3 % (11.5-14.5); Red Blood Cell (RBC) Count 2.89 mill/uL (4.70-6.10); White Blood Cell (WBC) Count 3.5 10x3/uL (4.8-10.8)
[2023-03-31 04:28] LABS: Anion Gap 12 mmol/L (10-20); BUN (Urea Nitrogen) 80 mg/dL (8.4-25.7); Calc. Creatinine Clearance 54 mL/min (70-130); Calcium 8.1 mg/dL (7.8-10.44); Carbon Dioxide 24 mmol/L (23-31); Chloride 101 mmol/L (98-107); Estimated GFR 36; Glucose 137 mg/dL (83-110); Potassium 4.8 mmol/L (3.5-5.1); Sodium 132 mmol/L (136-145)
[2023-03-31] MEDS: Furosemide 40 MG/4 ML VIAL SLOW IVP SCH ×2 (05:41→15:15)
[2023-03-31] MEDS: Allopurinol 100 MG TAB PO SCH (11:05)
[2023-03-31] MEDS: Polyethylene Glycol 3350 17 GM Packet PO SCH (11:05)
[2023-03-31] MEDS: Famotidine 20 MG TAB PO SCH (11:05)
[2023-03-31] MEDS: Carvedilol 3.125 MG TAB PO SCH ×2 (11:05→20:33)
[2023-03-31] MEDS: Aspirin Chewable 81 MG TAB PO SCH (11:05)
[2023-03-31] MEDS: Spironolactone 25 MG TAB PO SCH ×2 (11:05→18:53)
[2023-03-31] MEDS: cefTRIAXone\\ROCEPHIN 1 GM in Sodium Chloride 0.9% 100 ML IVPB SCH (11:06)
[2023-03-31] MEDS: Senokot S 8.6-50 MG TAB PO PRN (20:33)
[2023-03-31] MEDS: Atorvastatin Calcium 40 MG TAB PO SCH (20:33)
[2023-03-31] MEDS: Tamsulosin HCl 0.4 MG CAP PO SCH (20:33)
[2023-03-31] MEDS: ALPRAZolam 0.25 MG TAB PO PRN (20:33)
[2023-03-31] MEDS: Acetaminophen 325 MG TAB PO PRN (20:33)
[2023-04-01] MEDS: HYDROcodone/Acetaminophen 7.5/325 mg Tablet PO PRN ×4 (00:44→20:12)
[2023-04-01 04:29] LABS: Hematocrit 25.7 % (42.0-52.0); Hemoglobin 7.9 g/dL (14.0-18.0); Mean Corpuscular HGB CONC 30.7 g/dL (32.0-36.0); Mean Corpuscular Hemoglobin 27.1 pg (27.0-31.0); Mean Corpuscular Volume 88.3 fl (78.0-98.0); Mean Platelet Volume 12.4 fL (7.4-10.4); Platelet Count 144 10x3/uL (130-400); RBC Distribution Width 18.6 % (11.5-14.5); Red Blood Cell (RBC) Count 2.91 mill/uL (4.70-6.10); White Blood Cell (WBC) Count 3.6 10x3/uL (4.8-10.8)
[2023-04-01 04:50] LABS: Anion Gap 11 mmol/L (10-20); BUN (Urea Nitrogen) 68 mg/dL (8.4-25.7); Calc. Creatinine Clearance 55 mL/min (70-130); Calcium 8.4 mg/dL (7.8-10.44); Carbon Dioxide 26 mmol/L (23-31); Chloride 102 mmol/L (98-107); Estimated GFR 44; Glucose 107 mg/dL (83-110); Potassium 4.7 mmol/L (3.5-5.1); Sodium 134 mmol/L (136-145)
[2023-04-01] MEDS: Furosemide 40 MG/4 ML VIAL SLOW IVP SCH ×2 (06:18→14:50)
[2023-04-01] MEDS: Aspirin Chewable 81 MG TAB PO SCH (09:13)
[2023-04-01] MEDS: cefTRIAXone\\ROCEPHIN 1 GM in Sodium Chloride 0.9% 100 ML IVPB SCH (09:13)
[2023-04-01] MEDS: Spironolactone 25 MG TAB PO SCH ×2 (09:13→18:21)
[2023-04-01] MEDS: Famotidine 20 MG TAB PO SCH (09:13)
[2023-04-01] MEDS: Polyethylene Glycol 3350 17 GM Packet PO SCH (09:13)
[2023-04-01] MEDS: Allopurinol 100 MG TAB PO SCH (09:15)
[2023-04-01] MEDS: ALPRAZolam 0.25 MG TAB PO PRN ×2 (09:20→23:23)
[2023-04-01 10:56] VITALS: BMI 32.1
[2023-04-01] MEDS: Carvedilol 3.125 MG TAB PO SCH ×2 (11:48→20:09)
[2023-04-01] MEDS: Tamsulosin HCl 0.4 MG CAP PO SCH (20:09)
[2023-04-01] MEDS: Atorvastatin Calcium 40 MG TAB PO SCH (20:09)
[2023-04-02] MEDS: HYDROcodone/Acetaminophen 7.5/325 mg Tablet PO PRN ×4 (02:15→14:15)
[2023-04-02] MEDS: Furosemide 40 MG/4 ML VIAL SLOW IVP SCH ×2 (06:41→14:16)
[2023-04-02] MEDS: Carvedilol 3.125 MG TAB PO SCH ×2 (09:22→20:59)
[2023-04-02] MEDS: Allopurinol 100 MG TAB PO SCH (09:22)
[2023-04-02] MEDS: Aspirin Chewable 81 MG TAB PO SCH (09:22)
[2023-04-02] MEDS: Famotidine 20 MG TAB PO SCH (09:22)
[2023-04-02] MEDS: Spironolactone 25 MG TAB PO SCH ×2 (09:22→18:36)
[2023-04-02] MEDS: Polyethylene Glycol 3350 17 GM Packet PO SCH (09:23)
[2023-04-02] MEDS ORDERED: traMADol HCl 50 MG TAB PO PRN (10:33)
[2023-04-02] MEDS: ALPRAZolam 0.25 MG TAB PO PRN (10:40)
[2023-04-02] MEDS: cefTRIAXone\\ROCEPHIN 1 GM in Sodium Chloride 0.9% 100 ML IVPB SCH (10:40)
[2023-04-02] MEDS ORDERED: Gabapentin 300 MG CAP PO SCH (10:45)
[2023-04-02] MEDS: Acetaminophen 325 MG TAB PO PRN (18:34)
[2023-04-02] MEDS: Gabapentin 300 MG CAP PO SCH (20:59)
[2023-04-02] MEDS: Tamsulosin HCl 0.4 MG CAP PO SCH (20:59)
[2023-04-02] MEDS: Atorvastatin Calcium 40 MG TAB PO SCH (20:59)
[2023-04-03] MEDS: HYDROcodone/Acetaminophen 7.5/325 mg Tablet PO PRN ×4 (03:00→20:30)
[2023-04-03 04:40] LABS: #Eosinphils 0.1 thou/uL (0.0-0.7); #Monocytes 0.4 thou/uL (0.11-0.59); #Neutrophils 3.3 thou/uL (1.40-6.50); %Basophils 0.2 % (0.0-1.0); %Eosinophils 1.9 % (0.0-10.0); %Neutrophils 69.5 % (42.0-75.0); Hematocrit 26.7 % (42.0-52.0); Hemoglobin 8.2 g/dL (14.0-18.0); Mean Corpuscular HGB CONC 30.7 g/dL (32.0-36.0); Mean Corpuscular Hemoglobin 27.3 pg (27.0-31.0); Mean Platelet Volume 10.6 fL (7.4-10.4); Platelet Count 141 10x3/uL (130-400); RBC Distribution Width 19.3 % (11.5-14.5); White Blood Cell (WBC) Count 4.8 10x3/uL (4.8-10.8)
[2023-04-03 05:05] LABS: Anion Gap 13 mmol/L (10-20); BUN (Urea Nitrogen) 66 mg/dL (8.4-25.7); Calc. Creatinine Clearance 47 mL/min (70-130); Calcium 8.2 mg/dL (7.8-10.44); Carbon Dioxide 27 mmol/L (23-31); Chloride 99 mmol/L (98-107); Estimated GFR 37; Glucose 122 mg/dL (83-110); Potassium 5.5 mmol/L (3.5-5.1); Sodium 133 mmol/L (136-145)
[2023-04-03] MEDS: Furosemide 40 MG/4 ML VIAL SLOW IVP SCH ×2 (05:22→13:11)
[2023-04-03] MEDS: cefTRIAXone\\ROCEPHIN 1 GM in Sodium Chloride 0.9% 100 ML IVPB SCH (08:17)
[2023-04-03] MEDS: Polyethylene Glycol 3350 17 GM Packet PO SCH (08:17)
[2023-04-03] MEDS: Carvedilol 3.125 MG TAB PO SCH ×2 (08:18→20:25)
[2023-04-03] MEDS: Allopurinol 100 MG TAB PO SCH (08:18)
[2023-04-03] MEDS: Gabapentin 300 MG CAP PO SCH ×2 (08:18→20:25)
[2023-04-03] MEDS: Spironolactone 25 MG TAB PO SCH ×2 (08:18→17:53)
[2023-04-03] MEDS: Famotidine 20 MG TAB PO SCH (08:18)
[2023-04-03] MEDS: Ondansetron ODT 4 MG TAB PO PRN (13:11)
[2023-04-03] MEDS: Tamsulosin HCl 0.4 MG CAP PO SCH (20:25)
[2023-04-03] MEDS: Atorvastatin Calcium 40 MG TAB PO SCH (20:26)
[2023-04-04] MEDS: Furosemide 40 MG/4 ML VIAL SLOW IVP SCH ×2 (06:14→15:11)
[2023-04-04] MEDS: cefTRIAXone\\ROCEPHIN 1 GM in Sodium Chloride 0.9% 100 ML IVPB SCH (08:45)
[2023-04-04] MEDS: Ondansetron ODT 4 MG TAB PO PRN (08:47)
[2023-04-04] MEDS: Gabapentin 300 MG CAP PO SCH (08:47)
[2023-04-04] MEDS: HYDROcodone/Acetaminophen 7.5/325 mg Tablet PO PRN (08:51)
[2023-04-04] MEDS: Famotidine 20 MG TAB PO SCH (08:52)
[2023-04-04] MEDS: Carvedilol 3.125 MG TAB PO SCH (08:52)
[2023-04-04] MEDS: Spironolactone 25 MG TAB PO SCH (08:52)
[2023-04-04] MEDS: Allopurinol 100 MG TAB PO SCH (08:52)
[2023-04-04] MEDS: Polyethylene Glycol 3350 17 GM Packet PO SCH (08:53)
[2023-04-04] MEDS: Aspirin Chewable 81 MG TAB PO SCH (08:56)
[2023-04-04 10:08] LABS: Anion Gap 9 mmol/L (10-20); BUN (Urea Nitrogen) 67 mg/dL (8.4-25.7); Calc. Creatinine Clearance 41 mL/min (70-130); Calcium 8.1 mg/dL (7.8-10.44); Carbon Dioxide 29 mmol/L (23-31); Chloride 99 mmol/L (98-107); Estimated GFR 32; Glucose 119 mg/dL (83-110); Potassium 4.9 mmol/L (3.5-5.1); Sodium 132 mmol/L (136-145)
[2023-04-04 11:59] VITALS: BP 119/47; TEMP 97.9
== END 2023-04-04 16:59 | disposition swing bed (61) | DRG 291 ==
LOC: ERS 01:46 → ERHOLD 03:52 → IMCU/EMU 08:21 → 2NO 04-01 20:30
PROVIDERS: ADMIT Student in an Organized Health Care Education/Training Program; ATTEND Family Medicine
PROC: 30233J1 Transfusion of Nonautologous Serum Albumin into Peripheral Vein, Percutaneous Approach (ICD-10-PCS; 2023-03-29)
PROC: 30233N1 Transfusion of Nonautologous Red Blood Cells into Peripheral Vein, Percutaneous Approach (ICD-10-PCS; principal; 2023-03-30)
DX: I13.0 Hypertensive heart and chronic kidney disease with heart failure and stage 1 through stage 4 chronic kidney disease, or unspecified chronic kidney disease (principal); I50.43 Acute on chronic combined systolic (congestive) and diastolic (congestive) heart failure; S42.295A Other nondisplaced fracture of upper end of left humerus, initial encounter for closed fracture; N17.9 Acute kidney failure, unspecified; D62 Acute posthemorrhagic anemia; N18.4 Chronic kidney disease, stage 4 (severe); E78.5 Hyperlipidemia, unspecified; Z51.5 Encounter for palliative care; E11.22 Type 2 diabetes mellitus with diabetic chronic kidney disease; M10.9 Gout, unspecified; D63.1 Anemia in chronic kidney disease; I25.10 Atherosclerotic heart disease of native coronary artery without angina pectoris; F41.9 Anxiety disorder, unspecified; R80.9 Proteinuria, unspecified; N50.89 Other specified disorders of the male genital organs; I95.9 Hypotension, unspecified; R77.8 Other specified abnormalities of plasma proteins; E87.6 Hypokalemia; W18.30XA Fall on same level, unspecified, initial encounter; Z96.641 Presence of right artificial hip joint; Z79.82 Long term (current) use of aspirin; Z79.899 Other long term (current) drug therapy; Z95.1 Presence of aortocoronary bypass graft; Z98.41 Cataract extraction status, right eye; Z98.42 Cataract extraction status, left eye; Z95.810 Presence of automatic (implantable) cardiac defibrillator; Y92.003 Bedroom of unspecified non-institutional (private) residence as the place of occurrence of the external cause; I25.5 Ischemic cardiomyopathy; E87.5 Hyperkalemia; Z85.820 Personal history of malignant melanoma of skin; K21.9 Gastro-esophageal reflux disease without esophagitis
CPT/HCPCS: 36415; 36416; 36430; 71045; 80048; 80053; 81001; 82533; 83880; 84436; 84443; 84484; 85025; 85027; 86850; 86900; 86901; 93005; 93306; 96374; 96375; 97139; J0696; J1940; J2270; J2405; J3010; J3490; P9016; P9047; Q0162

== ENCOUNTER 2023-05-25 15:02 | Inpatient (IN) | payer OTHER ==
[2023-05-25 16:57] LABS: #Eosinphils 0.1 thou/uL (0.0-0.7); #Monocytes 0.5 thou/uL (0.11-0.59); #Neutrophils 4.9 thou/uL (1.40-6.50); %Basophils 0.2 % (0.0-1.0); %Eosinophils 1.8 % (0.0-10.0); %Lymphocytes 11.6 % (21.0-51.0); %Monocytes 7.8 % (0.0-10.0); %Neutrophils 78.4 % (42.0-75.0); Hematocrit 34.8 % (42.0-52.0); Hemoglobin 10.8 g/dL (14.0-18.0); Mean Corpuscular Hemoglobin 27.5 pg (27.0-31.0); Mean Corpuscular Volume 88.5 fl (78.0-98.0); Mean Platelet Volume 10.9 fL (7.4-10.4); Platelet Count 183 10x3/uL (130-400); RBC Distribution Width 17.5 % (11.5-14.5); Red Blood Cell (RBC) Count 3.93 mill/uL (4.70-6.10); White Blood Cell (WBC) Count 6.2 10x3/uL (4.8-10.8)
[2023-05-25 17:26] LABS: Troponin I 0.087 ng/mL (< 0.028)
[2023-05-25 17:35] LABS: ALT (SGPT) 12 U/L (8-55); AST (SGOT) 21 U/L (5-34); Albumin 2.8 g/dL (3.4-4.8); Alkaline Phosphatase 106 U/L (40-110); Anion Gap 18 mmol/L (10-20); BUN (Urea Nitrogen) 122 mg/dL (8.4-25.7); Bilirubin, Total 0.4 mg/dL (0.2-1.2); Calc. Creatinine Clearance 0 mL/min (70-130); Calcium 7.8 mg/dL (7.8-10.44); Carbon Dioxide 26 mmol/L (23-31); Chloride 94 mmol/L (98-107); Estimated GFR 30; Globulin 3.2 g/dL (2.4-3.5); Glucose 197 mg/dL (83-110); Potassium 3.6 mmol/L (3.5-5.1); Sodium 134 mmol/L (136-145)
[2023-05-25] MEDS ORDERED: Furosemide 40 MG/4 ML VIAL ONE (17:39)
[2023-05-25] MEDS ORDERED: HYDROcodone/Acetaminophen 5/325 mg Tablet PO PRN (18:47)
[2023-05-25] MEDS ORDERED: Ondansetron ODT 4 MG TAB PO PRN (18:47)
[2023-05-25] MEDS ORDERED: Ondansetron PF 4 MG/2 ML Vial IVP PRN (18:47)
[2023-05-25] MEDS: Tamsulosin HCl 0.4 MG CAP PO SCH (20:52)
[2023-05-25] MEDS: Carvedilol 3.125 MG TAB PO SCH (20:52)
[2023-05-25] MEDS: Atorvastatin Calcium 40 MG TAB PO SCH (20:52)
[2023-05-25] MEDS: Gabapentin 300 MG CAP PO SCH (20:52)
[2023-05-25] MEDS: Heparin 5,000 UNITS/ML VIAL SC SCH (20:56)
[2023-05-26] MEDS: HYDROcodone/Acetaminophen 5/325 mg Tablet PO PRN (00:06)
[2023-05-26] MEDS ORDERED: Hyoscyamine SL 0.125 MG TAB PO SCH (02:00)
[2023-05-26] MEDS ORDERED: Dextrose 5% in Water 1,000 ML IV PRN (04:50)
[2023-05-26] MEDS ORDERED: Dextrose 50% Abboject 50 ML SYRINGE SLOW IVP PRN (04:50)
[2023-05-26] MEDS ORDERED: HumaLOG 300 UNITS/3 ML VIAL SC PRN (04:50)
[2023-05-26] MEDS ORDERED: Glucagon 1 MG/ML KIT IM PRN (04:50)
[2023-05-26] MEDS: Metolazone 5 MG TAB PO SCH (05:08)
[2023-05-26] MEDS: HumaLOG 300 UNITS/3 ML VIAL SC PRN ×2 (05:09→17:41)
[2023-05-26] MEDS: Hyoscyamine SL 0.125 MG TAB PO SCH (06:05)
[2023-05-26] MEDS: Furosemide 100 MG/10 ML VIAL SLOW IVP SCH ×2 (06:05→16:22)
[2023-05-26 06:58] LABS: #Eosinphils 0.1 thou/uL (0.0-0.7); #Monocytes 0.5 thou/uL (0.11-0.59); #Neutrophils 4.2 thou/uL (1.40-6.50); %Basophils 0.2 % (0.0-1.0); %Eosinophils 1.9 % (0.0-10.0); %Lymphocytes 15.4 % (21.0-51.0); Hematocrit 31.1 % (42.0-52.0); Hemoglobin 9.6 g/dL (14.0-18.0); Mean Corpuscular HGB CONC 30.9 g/dL (32.0-36.0); Mean Corpuscular Hemoglobin 27.4 pg (27.0-31.0); Mean Corpuscular Volume 88.6 fl (78.0-98.0); Mean Platelet Volume 11.2 fL (7.4-10.4); Platelet Count 162 10x3/uL (130-400); RBC Distribution Width 17.5 % (11.5-14.5); Red Blood Cell (RBC) Count 3.51 mill/uL (4.70-6.10); White Blood Cell (WBC) Count 5.7 10x3/uL (4.8-10.8)
[2023-05-26 07:20] LABS: ALT (SGPT) 11 U/L (8-55); AST (SGOT) 9 U/L (5-34); Albumin 2.6 g/dL (3.4-4.8); Alkaline Phosphatase 91 U/L (40-110); Anion Gap 14 mmol/L (10-20); BUN (Urea Nitrogen) 125 mg/dL (8.4-25.7); Bilirubin, Total 0.3 mg/dL (0.2-1.2); Calc. Creatinine Clearance 44 mL/min (70-130); Calcium 7.8 mg/dL (7.8-10.44); Carbon Dioxide 30 mmol/L (23-31); Chloride 95 mmol/L (98-107); Estimated GFR 33; Globulin 2.5 g/dL (2.4-3.5); Glucose 184 mg/dL (83-110); Potassium 3.2 mmol/L (3.5-5.1); Protein, Total 5.1 g/dL (5.8-8.1); Sodium 136 mmol/L (136-145)
[2023-05-26] MEDS: Gabapentin 300 MG CAP PO SCH ×2 (08:27→20:15)
[2023-05-26] MEDS: Aspirin Chewable 81 MG TAB PO SCH (08:27)
[2023-05-26] MEDS: Carvedilol 3.125 MG TAB PO SCH (08:28)
[2023-05-26] MEDS: ALPRAZolam 0.25 MG TAB PO PRN (08:28)
[2023-05-26] MEDS: Acetaminophen 325 MG TAB PO PRN (08:28)
[2023-05-26] MEDS: Heparin 5,000 UNITS/ML VIAL SC SCH ×3 (08:29→20:16)
[2023-05-26] MEDS: Polyethylene Glycol 3350 17 GM Packet PO SCH (08:36)
[2023-05-26] MEDS: Fluticasone Propionate Nasal Spray 16 gm Bottle NASAL SCH (08:49)
[2023-05-26] MEDS: Empagliflozin 10 MG TAB PO SCH (10:43)
[2023-05-26] MEDS: Tamsulosin HCl 0.4 MG CAP PO SCH (20:14)
[2023-05-26] MEDS: Atorvastatin Calcium 40 MG TAB PO SCH (20:15)
[2023-05-26] MEDS: guaiFENesin ER 600 MG TAB PO SCH (23:00)
[2023-05-27] MEDS: DOBUTamine 500 mg/250 ml 250 ML IVPB SCH ×2 (00:33→14:31)
[2023-05-27] MEDS: Hyoscyamine SL 0.125 MG TAB PO SCH (05:09)
[2023-05-27] MEDS: Furosemide 100 MG/10 ML VIAL SLOW IVP SCH ×2 (05:10→14:05)
[2023-05-27] MEDS: Metolazone 5 MG TAB PO SCH (05:10)
[2023-05-27] MEDS: HumaLOG 300 UNITS/3 ML VIAL SC PRN ×3 (05:33→17:47)
[2023-05-27 07:25] LABS: #Eosinphils 0.1 thou/uL (0.0-0.7); #Monocytes 0.5 thou/uL (0.11-0.59); #Neutrophils 4.2 thou/uL (1.40-6.50); %Basophils 0.4 % (0.0-1.0); %Eosinophils 2.3 % (0.0-10.0); %Monocytes 7.9 % (0.0-10.0); Hematocrit 31.4 % (42.0-52.0); Hemoglobin 9.7 g/dL (14.0-18.0); Mean Corpuscular HGB CONC 30.9 g/dL (32.0-36.0); Mean Corpuscular Hemoglobin 27.8 pg (27.0-31.0); Mean Platelet Volume 10.4 fL (7.4-10.4); Platelet Count 141 10x3/uL (130-400); RBC Distribution Width 17.4 % (11.5-14.5); Red Blood Cell (RBC) Count 3.49 mill/uL (4.70-6.10); White Blood Cell (WBC) Count 5.7 10x3/uL (4.8-10.8)
[2023-05-27 07:46] LABS: Anion Gap 12 mmol/L (10-20); BUN (Urea Nitrogen) 123 mg/dL (8.4-25.7); Calc. Creatinine Clearance 48 mL/min (70-130); Calcium 7.9 mg/dL (7.8-10.44); Carbon Dioxide 31 mmol/L (23-31); Chloride 93 mmol/L (98-107); Estimated GFR 34; Glucose 202 mg/dL (83-110); Potassium 3.2 mmol/L (3.5-5.1); Sodium 133 mmol/L (136-145)
[2023-05-27] MEDS: Aspirin Chewable 81 MG TAB PO SCH (10:08)
[2023-05-27] MEDS: Gabapentin 300 MG CAP PO SCH ×2 (10:08→21:08)
[2023-05-27] MEDS: Empagliflozin 10 MG TAB PO SCH (10:08)
[2023-05-27] MEDS: Polyethylene Glycol 3350 17 GM Packet PO SCH (10:11)
[2023-05-27] MEDS: Fluticasone Propionate Nasal Spray 16 gm Bottle NASAL SCH (10:11)
[2023-05-27] MEDS: Heparin 5,000 UNITS/ML VIAL SC SCH ×3 (10:14→21:10)
[2023-05-27] MEDS: guaiFENesin ER 600 MG TAB PO SCH ×2 (10:51→21:10)
[2023-05-27] MEDS: HYDROcodone/Acetaminophen 5/325 mg Tablet PO PRN (14:07)
[2023-05-27] MEDS: Atorvastatin Calcium 40 MG TAB PO SCH (21:08)
[2023-05-27] MEDS: Tamsulosin HCl 0.4 MG CAP PO SCH (21:08)
[2023-05-28] MEDS: DOBUTamine 500 mg/250 ml 250 ML IVPB SCH ×2 (05:19→20:46)
[2023-05-28 05:27] LABS: Anion Gap 12 mmol/L (10-20); BUN (Urea Nitrogen) 118 mg/dL (8.4-25.7); Calc. Creatinine Clearance 50 mL/min (70-130); Carbon Dioxide 35 mmol/L (23-31); Chloride 92 mmol/L (98-107); Estimated GFR 36; Glucose 162 mg/dL (83-110); Potassium 3.1 mmol/L (3.5-5.1); Sodium 136 mmol/L (136-145)
[2023-05-28] MEDS: Metolazone 5 MG TAB PO SCH (05:42)
[2023-05-28] MEDS: Furosemide 100 MG/10 ML VIAL SLOW IVP SCH ×2 (06:29→14:37)
[2023-05-28] MEDS: Hyoscyamine SL 0.125 MG TAB PO SCH (06:29)
[2023-05-28] MEDS: Aspirin Chewable 81 MG TAB PO SCH (09:12)
[2023-05-28] MEDS: Gabapentin 300 MG CAP PO SCH ×2 (09:12→20:16)
[2023-05-28] MEDS: Fluticasone Propionate Nasal Spray 16 gm Bottle NASAL SCH (09:12)
[2023-05-28] MEDS: Empagliflozin 10 MG TAB PO SCH (09:12)
[2023-05-28] MEDS: Potassium Chloride 20 MEQ TAB PO SCH ×2 (09:12→15:13)
[2023-05-28] MEDS: Polyethylene Glycol 3350 17 GM Packet PO SCH (09:13)
[2023-05-28] MEDS: guaiFENesin ER 600 MG TAB PO SCH ×2 (09:13→20:16)
[2023-05-28] MEDS: Heparin 5,000 UNITS/ML VIAL SC SCH ×2 (09:29→14:50)
[2023-05-28] MEDS ORDERED: Bisacodyl 10 MG SUPP PR PRN (10:49)
[2023-05-28] MEDS ORDERED: Potassium Chloride 20 MEQ TAB PO SCH (15:00)
[2023-05-28] MEDS: Atorvastatin Calcium 40 MG TAB PO SCH (20:16)
[2023-05-28] MEDS: ALPRAZolam 0.25 MG TAB PO PRN (20:16)
[2023-05-28] MEDS: Tamsulosin HCl 0.4 MG CAP PO SCH (20:16)
[2023-05-28] MEDS: Senokot S 8.6-50 MG TAB PO SCH (20:16)
[2023-05-29 05:00] LABS: Anion Gap 16 mmol/L (10-20); BUN (Urea Nitrogen) 104 mg/dL (8.4-25.7); Calc. Creatinine Clearance 55 mL/min (70-130); Calcium 8.1 mg/dL (7.8-10.44); Carbon Dioxide 31 mmol/L (23-31); Chloride 92 mmol/L (98-107); Estimated GFR 42; Glucose 147 mg/dL (83-110); Potassium 3.7 mmol/L (3.5-5.1); Sodium 135 mmol/L (136-145)
[2023-05-29] MEDS: Furosemide 100 MG/10 ML VIAL SLOW IVP SCH ×2 (05:46→14:24)
[2023-05-29] MEDS: Metolazone 5 MG TAB PO SCH (05:47)
[2023-05-29] MEDS: Hyoscyamine SL 0.125 MG TAB PO SCH (05:47)
[2023-05-29] MEDS: Gabapentin 300 MG CAP PO SCH ×2 (09:31→10:40)
[2023-05-29] MEDS: Senokot S 8.6-50 MG TAB PO SCH ×2 (09:31→20:39)
[2023-05-29] MEDS: guaiFENesin ER 600 MG TAB PO SCH ×2 (09:31→20:39)
[2023-05-29] MEDS: Aspirin Chewable 81 MG TAB PO SCH (09:31)
[2023-05-29] MEDS: Empagliflozin 10 MG TAB PO SCH (09:31)
[2023-05-29] MEDS: Fluticasone Propionate Nasal Spray 16 gm Bottle NASAL SCH (09:33)
[2023-05-29] MEDS: Polyethylene Glycol 3350 17 GM Packet PO SCH (10:37)
[2023-05-29] MEDS: HumaLOG 300 UNITS/3 ML VIAL SC PRN ×2 (11:32→18:07)
[2023-05-29] MEDS: Tamsulosin HCl 0.4 MG CAP PO SCH (20:38)
[2023-05-29] MEDS: Atorvastatin Calcium 40 MG TAB PO SCH (20:39)
[2023-05-29] MEDS ORDERED: Phenazopyridine HCl 100 MG TAB PO SCH (21:45)
[2023-05-30] MEDS ORDERED: Benzonatate 100 MG CAP PO SCH (04:30)
[2023-05-30] MEDS: DOBUTamine 500 mg/250 ml 250 ML IVPB SCH ×2 (05:15→21:58)
[2023-05-30] MEDS: Furosemide 100 MG/10 ML VIAL SLOW IVP SCH ×2 (05:15→13:08)
[2023-05-30] MEDS: Metolazone 5 MG TAB PO SCH (05:15)
[2023-05-30] MEDS: Hyoscyamine SL 0.125 MG TAB PO SCH (05:20)
[2023-05-30 05:25] LABS: Anion Gap 15 mmol/L (10-20); BUN (Urea Nitrogen) 96 mg/dL (8.4-25.7); Calc. Creatinine Clearance 53 mL/min (70-130); Calcium 8.2 mg/dL (7.8-10.44); Carbon Dioxide 34 mmol/L (23-31); Chloride 91 mmol/L (98-107); Estimated GFR 44; Glucose 129 mg/dL (83-110); Potassium 3.4 mmol/L (3.5-5.1); Sodium 137 mmol/L (136-145)
[2023-05-30] MEDS: guaiFENesin ER 600 MG TAB PO SCH ×2 (09:38→21:59)
[2023-05-30] MEDS: Empagliflozin 10 MG TAB PO SCH (09:38)
[2023-05-30] MEDS: Spironolactone 25 MG TAB PO SCH (09:38)
[2023-05-30] MEDS: Senokot S 8.6-50 MG TAB PO SCH ×2 (09:39→21:59)
[2023-05-30] MEDS: Gabapentin 300 MG CAP PO SCH ×2 (09:39→21:59)
[2023-05-30] MEDS: Aspirin Chewable 81 MG TAB PO SCH (09:39)
[2023-05-30] MEDS: Valsartan 80 MG TAB PO SCH (09:39)
[2023-05-30] MEDS: Polyethylene Glycol 3350 17 GM Packet PO SCH (09:47)
[2023-05-30] MEDS: Fluticasone Propionate Nasal Spray 16 gm Bottle NASAL SCH (09:47)
[2023-05-30] MEDS: HumaLOG 300 UNITS/3 ML VIAL SC PRN (13:06)
[2023-05-30] MEDS: Atorvastatin Calcium 40 MG TAB PO SCH (21:59)
[2023-05-30] MEDS: Tamsulosin HCl 0.4 MG CAP PO SCH (21:59)
[2023-05-30] MEDS: HYDROcodone/Acetaminophen 5/325 mg Tablet PO PRN (23:59)
[2023-05-31] MEDS: Hyoscyamine SL 0.125 MG TAB PO SCH (05:17)
[2023-05-31] MEDS: Metolazone 5 MG TAB PO SCH (05:17)
[2023-05-31] MEDS: Furosemide 100 MG/10 ML VIAL SLOW IVP SCH ×2 (05:17→14:59)
[2023-05-31] MEDS ORDERED: Potassium Bicarbonate/Cit Ac 20 MEQ TAB PO SCH (08:45)
[2023-05-31 08:59] LABS: #Eosinphils 0.1 thou/uL (0.0-0.7); #Monocytes 0.5 thou/uL (0.11-0.59); #Neutrophils 3.8 thou/uL (1.40-6.50); %Eosinophils 1.9 % (0.0-10.0); %Lymphocytes 16.3 % (21.0-51.0); %Monocytes 8.9 % (0.0-10.0); %Neutrophils 72.5 % (42.0-75.0); Hematocrit 30.9 % (42.0-52.0); Hemoglobin 9.4 g/dL (14.0-18.0); Mean Corpuscular HGB CONC 30.4 g/dL (32.0-36.0); Mean Corpuscular Hemoglobin 27.1 pg (27.0-31.0); Mean Platelet Volume 10.2 fL (7.4-10.4); Platelet Count 140 10x3/uL (130-400); RBC Distribution Width 17.2 % (11.5-14.5); Red Blood Cell (RBC) Count 3.47 mill/uL (4.70-6.10); White Blood Cell (WBC) Count 5.3 10x3/uL (4.8-10.8)
[2023-05-31 09:25] LABS: BUN (Urea Nitrogen) 93 mg/dL (8.4-25.7); Calc. Creatinine Clearance 44 mL/min (70-130); Calcium 7.9 mg/dL (7.8-10.44); Estimated GFR 36; Glucose 160 mg/dL (83-110)
[2023-05-31 09:34] LABS: Anion Gap 18 mmol/L (10-20); Carbon Dioxide 33 mmol/L (23-31); Chloride 89 mmol/L (98-107); Potassium 3.2 mmol/L (3.5-5.1); Sodium 137 mmol/L (136-145)
[2023-05-31] MEDS: Polyethylene Glycol 3350 17 GM Packet PO SCH (10:12)
[2023-05-31] MEDS: Valsartan 80 MG TAB PO SCH (10:12)
[2023-05-31] MEDS: Gabapentin 300 MG CAP PO SCH ×2 (10:13→21:01)
[2023-05-31] MEDS: Spironolactone 25 MG TAB PO SCH (10:13)
[2023-05-31] MEDS: Senokot S 8.6-50 MG TAB PO SCH ×2 (10:15→21:01)
[2023-05-31] MEDS: Fluticasone Propionate Nasal Spray 16 gm Bottle NASAL SCH (10:15)
[2023-05-31] MEDS: guaiFENesin ER 600 MG TAB PO SCH ×2 (10:15→21:01)
[2023-05-31] MEDS: Empagliflozin 10 MG TAB PO SCH (10:16)
[2023-05-31] MEDS: Aspirin Chewable 81 MG TAB PO SCH (10:17)
[2023-05-31] MEDS: HumaLOG 300 UNITS/3 ML VIAL SC PRN (12:42)
[2023-05-31 17:16] LABS: Free T4 (Free Thyroxine) 1.04 ng/dL (0.70-1.48)
[2023-05-31] MEDS: Tamsulosin HCl 0.4 MG CAP PO SCH (21:01)
[2023-05-31] MEDS: Atorvastatin Calcium 40 MG TAB PO SCH (21:01)
[2023-06-01 04:39] LABS: #Eosinphils 0.1 thou/uL (0.0-0.7); #Monocytes 0.6 thou/uL (0.11-0.59); #Neutrophils 6.1 thou/uL (1.40-6.50); %Basophils 0.1 % (0.0-1.0); %Eosinophils 1.6 % (0.0-10.0); %Lymphocytes 10.8 % (21.0-51.0); %Monocytes 8.3 % (0.0-10.0); %Neutrophils 78.9 % (42.0-75.0); Hematocrit 32.1 % (42.0-52.0); Hemoglobin 9.8 g/dL (14.0-18.0); Mean Corpuscular HGB CONC 30.5 g/dL (32.0-36.0); Mean Corpuscular Hemoglobin 27.2 pg (27.0-31.0); Mean Corpuscular Volume 89.2 fl (78.0-98.0); Mean Platelet Volume 11.7 fL (7.4-10.4); Platelet Count 153 10x3/uL (130-400); RBC Distribution Width 17.3 % (11.5-14.5); White Blood Cell (WBC) Count 7.7 10x3/uL (4.8-10.8)
[2023-06-01 05:14] LABS: Anion Gap 18 mmol/L (10-20); BUN (Urea Nitrogen) 100 mg/dL (8.4-25.7); Calc. Creatinine Clearance 39 mL/min (70-130); Calcium 7.7 mg/dL (7.8-10.44); Carbon Dioxide 34 mmol/L (23-31); Chloride 89 mmol/L (98-107); Estimated GFR 31; Glucose 99 mg/dL (83-110); Potassium 3.7 mmol/L (3.5-5.1); Sodium 137 mmol/L (136-145)
[2023-06-01] MEDS: Furosemide 100 MG/10 ML VIAL SLOW IVP SCH (05:46)
[2023-06-01] MEDS: Metolazone 5 MG TAB PO SCH (05:46)
[2023-06-01] MEDS: Fluticasone Propionate Nasal Spray 16 gm Bottle NASAL SCH (10:32)
[2023-06-01] MEDS: Valsartan 80 MG TAB PO SCH (10:32)
[2023-06-01] MEDS: Spironolactone 25 MG TAB PO SCH (10:32)
[2023-06-01] MEDS: Gabapentin 300 MG CAP PO SCH ×3 (10:37→20:01)
[2023-06-01] MEDS: Aspirin Chewable 81 MG TAB PO SCH (10:37)
[2023-06-01] MEDS: Empagliflozin 10 MG TAB PO SCH (10:37)
[2023-06-01] MEDS: Polyethylene Glycol 3350 17 GM Packet PO SCH (10:38)
[2023-06-01] MEDS: guaiFENesin ER 600 MG TAB PO SCH ×2 (10:38→20:01)
[2023-06-01] MEDS: Senokot S 8.6-50 MG TAB PO SCH ×2 (10:38→20:01)
[2023-06-01] MEDS ORDERED: Lorazepam 2 MG/ML VIAL SLOW IVP SCH (13:45)
[2023-06-01] MEDS: Furosemide 80 MG TAB PO SCH (14:42)
[2023-06-01 15:38] LABS: Bacteria/HPF 1+ HPF (None Seen); Bilirubin Negative (Negative); Blood, Urine 3+ (Negative); CAUTI Indications for Culture Alt mental st,lethar; Clarity Extra Turbid (Clear); Glucose, Urine (Dipstick) Normal (Negative); Ketone, Urine Negative (Negative); Leukocyte 500 Leu/uL (Negative); Nitrite Negative (Negative); Protein, Urine (Dipstick) 100 mg/dL (Neg-Trace); RBC/HPF Greater than 50 HPF (0-3); Specific Gravity, Urine 1.015 (1.002-1.036); Squamous Epithelial None Seen HPF (0-3); Urobilinogen Normal mg/dL (Less than 2); WBC/HPF Greater than 50 HPF (0-3); pH, Urine 8.5 (5.0-9.0)
[2023-06-01 15:39] LABS: Urine Culture Reflex Yes Yes
[2023-06-01] MEDS ORDERED: Diazepam 10 MG/2 ML SYRINGE IVP PRN ×2 (17:43→17:45)
[2023-06-01] MEDS ORDERED: Acetaminophen 650 MG Suppository PR PRN (19:14)
[2023-06-01] MEDS: Albumin 25% 25 GM/100 ML BOT IVPB SCH (19:21)
[2023-06-01] MEDS: Tamsulosin HCl 0.4 MG CAP PO SCH (20:00)
[2023-06-01] MEDS: Atorvastatin Calcium 40 MG TAB PO SCH (20:01)
[2023-06-01 20:13] LABS: #Monocytes 0.8 thou/uL (0.11-0.59); #Neutrophils 13.2 thou/uL (1.40-6.50); %Basophils 0.1 % (0.0-1.0); %Eosinophils 0.1 % (0.0-10.0); %Lymphocytes 5.2 % (21.0-51.0); %Monocytes 5.3 % (0.0-10.0); %Neutrophils 88.8 % (42.0-75.0); Hematocrit 32.9 % (42.0-52.0); Hemoglobin 10.1 g/dL (14.0-18.0); Mean Corpuscular HGB CONC 30.7 g/dL (32.0-36.0); Mean Corpuscular Hemoglobin 27.4 pg (27.0-31.0); Mean Corpuscular Volume 89.2 fl (78.0-98.0); Mean Platelet Volume 12.4 fL (7.4-10.4); Platelet Count 153 10x3/uL (130-400); RBC Distribution Width 17.4 % (11.5-14.5); Red Blood Cell (RBC) Count 3.69 mill/uL (4.70-6.10); White Blood Cell (WBC) Count 14.9 10x3/uL (4.8-10.8)
[2023-06-01] MEDS ORDERED: NOREPINEPHRINE 8 MG/250 ML-D5W 250 ML ONE (20:23)
[2023-06-01 20:26] LABS: Actual Bicarbonate (HCO3v) 34.1 mEq/L (22-28); Base Excess 7.9 mEq/L (-2.0 to +3.0); Calcium, Ionized (venous) 0.94 mmol/L (1.16-1.32); Chloride (VBG) 90 mmol/L (98-106); Hematocrit-VBG 33 % (42.0-52.0); Hemoglobin (Hb) 11.3 g/dL (12.6-17.4); Potassium (VBG) 3.96 mmol/L (3.70-5.30); Sodium 134 mmol/L (133-146); pH (venous) 7.403 (7.32-7.43)
[2023-06-01 20:36] LABS: ALT (SGPT) 8 U/L (8-55); AST (SGOT) 20 U/L (5-34); Albumin 2.9 g/dL (3.4-4.8); Alkaline Phosphatase 86 U/L (40-110); Anion Gap 18 mmol/L (10-20); BUN (Urea Nitrogen) 107 mg/dL (8.4-25.7); Bilirubin, Total 1.1 mg/dL (0.2-1.2); CK (CPK) 326 U/L (30-200); Calc. Creatinine Clearance 32 mL/min (70-130); Calcium 7.7 mg/dL (7.8-10.44); Carbon Dioxide 34 mmol/L (23-31); Chloride 86 mmol/L (98-107); Estimated GFR 24; Globulin 2.5 g/dL (2.4-3.5); Glucose 111 mg/dL (83-110); Lactic Acid 0.8 mmol/L (0.5-2.2); Potassium 3.9 mmol/L (3.5-5.1); Protein, Total 5.4 g/dL (5.8-8.1); Sodium 134 mmol/L (136-145)
[2023-06-01 20:41] LABS: Acetaminophen Less than 10 mcg/mL (10.0-30.0); Alcohol Less than 10.0 mg/dL (Less than 10); Salicylate Less than 8.0 mg/dL (15.0-30.0)
[2023-06-01] MEDS ORDERED: Sodium Chloride 0.9% 500 ML IV SCH (20:45)
[2023-06-01] MEDS ORDERED: Cefepime 2 GM in Sodium Chloride 0.9% 100 ML IVPB SCH (21:30)
[2023-06-01] MEDS ORDERED: Vancomycin Dose by Levels Sliding Scale (Wt > 99) FS SCH (21:45)
[2023-06-01] MEDS ORDERED: Vancomycin (BATCH) 2 GM in Premix 1 BAG IVPB SCH (22:00)
[2023-06-01 22:29] LABS: Actual Bicarbonate (HCO3a) 30.7 mEq/L (22-28); Base Excess (BEa) 4.5 mEq/L (-2.0 to +3.0); CO2 Tension 54.4 mmHg (35.0-45.0); Calcium, Ionized (arterial) 0.97 mmol/L (1.12-1.30); Carboxyhemoglobin (COHb) 1.4 gm% (0.0-3.0); Hematocrit-ABG 32 % (42.0-52.0); Hemoglobin (Hb) 10.8 g/dL (14.0-18.0); O2 Tension (PaO2), arterial 91.5 mmHg (> 60.0); Potassium - ABG Lab 3.48 mmol/L (3.70-5.30)
[2023-06-01 22:30] LABS: Puncture Site Arterial Line
[2023-06-01] MEDS ORDERED: Sodium Chloride 0.9% 100 ML ONE (22:37)
[2023-06-01] MEDS ORDERED: DOBUTamine 500 mg/250 ml 250 ML ONE (23:12)
[2023-06-01] MEDS ORDERED: DOBUTamine 500 mg/250 ml 250 ML IVPB SCH (23:15)
[2023-06-01] MEDS ORDERED: Ventilator Sedation Protocol 1 EACH FS ONE (23:32)
[2023-06-01] MEDS ORDERED: Propofol 1,000 MG/100 ML VIAL IV ONE (23:34)
[2023-06-01] MEDS ORDERED: Fentanyl BOLUS 250 ML IVPB PRN (23:45)
[2023-06-01] MEDS ORDERED: Fentanyl CADD 100 ML IV SCH (23:45)
[2023-06-01] MEDS ORDERED: Lorazepam 2 MG/ML VIAL SLOW IVP PRN (23:45)
[2023-06-01] MEDS ORDERED: DISCONTINUE PREVIOUS NARCOTIC PAIN MEDICATIONS AND BENZODIAZEPINES FS SCH (23:45)
[2023-06-01] MEDS ORDERED: Morphine 2 MG/ML VIAL SLOW IVP PRN (23:45)
[2023-06-01] MEDS ORDERED: Propofol BOLUS 1,000 MG/100 ML VIAL IV PRN (23:45)
[2023-06-01] MEDS ORDERED: Rocuronium Bromide 10 MG/ML (10ML VIAL) IVP SCH (23:45)
[2023-06-02 00:08] LABS: Actual Bicarbonate (HCO3a) 29.1 mEq/L (22-28); Base Excess (BEa) 5.8 mEq/L (-2.0 to +3.0); CO2 Tension 37.8 mmHg (35.0-45.0); Calcium, Ionized (arterial) 0.95 mmol/L (1.12-1.30); Carboxyhemoglobin (COHb) 1.6 gm% (0.0-3.0); Hematocrit-ABG 33 % (42.0-52.0); Hemoglobin (Hb) 11.3 g/dL (14.0-18.0); O2 Tension (PaO2), arterial 112.7 mmHg (> 60.0); Potassium - ABG Lab 3.47 mmol/L (3.70-5.30); pH, Arterial 7.505 (7.35-7.45)
[2023-06-02] MEDS: NOREPINEPHRINE 8 MG/250 ML-D5W 250 ML IVPB SCH ×3 (01:28→18:10)
[2023-06-02] MEDS: Propofol 1,000 MG/100 ML VIAL IV PRN ×4 (01:31→18:10)
[2023-06-02 04:44] LABS: #Monocytes 0.6 thou/uL (0.11-0.59); #Neutrophils 12.8 thou/uL (1.40-6.50); %Basophils 0.1 % (0.0-1.0); %Eosinophils 0.1 % (0.0-10.0); %Lymphocytes 5.7 % (21.0-51.0); %Monocytes 4.3 % (0.0-10.0); %Neutrophils 89.5 % (42.0-75.0); Hematocrit 32.8 % (42.0-52.0); Hemoglobin 10.3 g/dL (14.0-18.0); Mean Corpuscular HGB CONC 31.4 g/dL (32.0-36.0); Mean Corpuscular Hemoglobin 27.5 pg (27.0-31.0); Mean Corpuscular Volume 87.7 fl (78.0-98.0); Mean Platelet Volume 11.9 fL (7.4-10.4); Platelet Count 155 10x3/uL (130-400); RBC Distribution Width 17.2 % (11.5-14.5); Red Blood Cell (RBC) Count 3.74 mill/uL (4.70-6.10); White Blood Cell (WBC) Count 14.3 10x3/uL (4.8-10.8)
[2023-06-02 05:00] LABS: Puncture Site Arterial Line
[2023-06-02 05:04] LABS: Anion Gap 19 mmol/L (10-20); BUN (Urea Nitrogen) 106 mg/dL (8.4-25.7); Calc. Creatinine Clearance 34 mL/min (70-130); Calcium 7.4 mg/dL (7.8-10.44); Carbon Dioxide 29 mmol/L (23-31); Chloride 93 mmol/L (98-107); Estimated GFR 26; Glucose 127 mg/dL (83-110); Potassium 3.4 mmol/L (3.5-5.1); Sodium 138 mmol/L (136-145)
[2023-06-02 05:26] LABS: Amphetamine Not Detected (NotDetected); Barbiturates Screen Not Detected (NotDetected); Benzodiazepine Screen Not Detected (NotDetected); Cocaine Metabolite Screen Not Detected (NotDetected); Methadone Not Detected (NotDetected); Methamphetamine Not Detected (NotDetected); Opiate Screen Detected (NotDetected); Oxycodone Screen Not Detected (NotDetected); Phencyclidine (PCP) Not Detected (NotDetected); THC/Cannabinoid Screen Not Detected (NotDetected); Tricyclic Screen Not Detected (NotDetected)
[2023-06-02] MEDS ORDERED: Rocuronium Bromide 10 MG/ML (10ML VIAL) ONE (06:00)
[2023-06-02 07:50] LABS: Magnesium 1.7 mg/dL (1.6-2.6); Phosphorus 5.3 mg/dL (2.3-4.7)
[2023-06-02 07:59] LABS: Actual Bicarbonate (HCO3a) 30.5 mEq/L (22-28); Base Excess (BEa) 6.6 mEq/L (-2.0 to +3.0); CO2 Tension 40.7 mmHg (35.0-45.0); Carboxyhemoglobin (COHb) 1.1 gm% (0.0-3.0); Hematocrit-ABG 34 % (42.0-52.0); Hemoglobin (Hb) 11.7 g/dL (14.0-18.0); O2 Tension (PaO2), arterial 92.8 mmHg (> 60.0); Potassium - ABG Lab 3.45 mmol/L (3.70-5.30); pH, Arterial 7.492 (7.35-7.45)
[2023-06-02] MEDS: Polyethylene Glycol 3350 17 GM Packet PO SCH (08:43)
[2023-06-02] MEDS: Senokot S 8.6-50 MG TAB PO SCH ×2 (08:43→20:04)
[2023-06-02] MEDS: Spironolactone 25 MG TAB PO SCH (08:43)
[2023-06-02] MEDS: Aspirin Chewable 81 MG TAB PO SCH (08:43)
[2023-06-02] MEDS: Empagliflozin 10 MG TAB PO SCH (08:43)
[2023-06-02] MEDS: Furosemide 80 MG TAB PO SCH (08:43)
[2023-06-02] MEDS: Fluticasone Propionate Nasal Spray 16 gm Bottle NASAL SCH (08:44)
[2023-06-02] MEDS: guaiFENesin ER 600 MG TAB PO SCH ×2 (08:44→20:05)
[2023-06-02] MEDS: Gabapentin 300 MG CAP PO SCH ×3 (08:46→20:04)
[2023-06-02 11:03] LABS: ALV-art Gradient 141.525 mmHg (0-20); Puncture Site Arterial Line
[2023-06-02] MEDS: Acetaminophen 325 MG TAB PO PRN ×2 (11:39→20:04)
[2023-06-02] MEDS ORDERED: ALPRAZolam 0.25 MG TAB PO SCH (11:45)
[2023-06-02] MEDS ORDERED: Pantoprazole 40 MG VIAL IVP SCH (11:45)
[2023-06-02] MEDS ORDERED: Pancrelipase DR 12,000 1 CAP FS PRN (15:30)
[2023-06-02] MEDS ORDERED: Sodium Bicarbonate Tab 325 MG TAB PER TUBE PRN (15:30)
[2023-06-02] MEDS: ALPRAZolam 0.25 MG TAB PO SCH (20:03)
[2023-06-02] MEDS: Tamsulosin HCl 0.4 MG CAP PO SCH (20:04)
[2023-06-02] MEDS: Atorvastatin Calcium 40 MG TAB PO SCH (20:04)
[2023-06-02] MEDS: Albumin 25% 25 GM/100 ML BOT IVPB SCH (20:04)
[2023-06-02] MEDS ORDERED: Cefepime 1 GM in Sodium Chloride 0.9% 100 ML IVPB SCH (21:00)
[2023-06-03 00:53] LABS: Vancomycin, Random 14.7 ug/mL (See Comment)
[2023-06-03] MEDS ORDERED: Vancomycin 1 GM in Premix 1 BAG IVPB SCH (01:00)
[2023-06-03] MEDS: NOREPINEPHRINE 8 MG/250 ML-D5W 250 ML IVPB SCH ×4 (02:27→22:20)
[2023-06-03] MEDS: Propofol 1,000 MG/100 ML VIAL IV PRN ×2 (02:27→18:16)
[2023-06-03] MEDS: HumaLOG 300 UNITS/3 ML VIAL SC PRN ×3 (04:34→17:16)
[2023-06-03 04:35] LABS: #Eosinphils 0.1 thou/uL (0.0-0.7); #Monocytes 0.8 thou/uL (0.11-0.59); #Neutrophils 7.9 thou/uL (1.40-6.50); %Basophils 0.2 % (0.0-1.0); %Eosinophils 1.2 % (0.0-10.0); %Lymphocytes 10.4 % (21.0-51.0); %Monocytes 7.7 % (0.0-10.0); %Neutrophils 80.1 % (42.0-75.0); Hematocrit 34.6 % (42.0-52.0); Hemoglobin 10.7 g/dL (14.0-18.0); Mean Corpuscular HGB CONC 30.9 g/dL (32.0-36.0); Mean Corpuscular Hemoglobin 27.2 pg (27.0-31.0); Mean Platelet Volume 11.6 fL (7.4-10.4); Platelet Count 145 10x3/uL (130-400); RBC Distribution Width 17.1 % (11.5-14.5); Red Blood Cell (RBC) Count 3.93 mill/uL (4.70-6.10); White Blood Cell (WBC) Count 9.9 10x3/uL (4.8-10.8)
[2023-06-03 04:58] LABS: Anion Gap 15 mmol/L (10-20); BUN (Urea Nitrogen) 102 mg/dL (8.4-25.7); Calc. Creatinine Clearance 36 mL/min (70-130); Calcium 7.5 mg/dL (7.8-10.44); Carbon Dioxide 33 mmol/L (23-31); Chloride 93 mmol/L (98-107); Estimated GFR 29; Glucose 197 mg/dL (83-110); Sodium 138 mmol/L (136-145)
[2023-06-03 06:25] LABS: Actual Bicarbonate (HCO3a) 35.9 mEq/L (22-28); Base Excess (BEa) 10.6 mEq/L (-2.0 to +3.0); CO2 Tension 51.3 mmHg (35.0-45.0); Calcium, Ionized (arterial) 1.04 mmol/L (1.12-1.30); Carboxyhemoglobin (COHb) 0.8 gm% (0.0-3.0); Hematocrit-ABG 34 % (42.0-52.0); Hemoglobin (Hb) 11.7 g/dL (14.0-18.0); O2 Tension (PaO2), arterial 87.1 mmHg (> 60.0); Potassium - ABG Lab 2.98 mmol/L (3.70-5.30); pH, Arterial 7.463 (7.35-7.45)
[2023-06-03 06:27] LABS: Puncture Site Right Radial
[2023-06-03 06:28] LABS: ALV-art Gradient 133.975 mmHg (0-20)
[2023-06-03 08:01] LABS: Magnesium 1.8 mg/dL (1.6-2.6); Phosphorus 4.7 mg/dL (2.3-4.7)
[2023-06-03] MEDS ORDERED: Furosemide 40 MG/4 ML VIAL SLOW IVP SCH (09:00)
[2023-06-03] MEDS: Senokot S 8.6-50 MG TAB PO SCH ×2 (09:10→20:37)
[2023-06-03] MEDS: Aspirin Chewable 81 MG TAB PO SCH (09:10)
[2023-06-03] MEDS: guaiFENesin ER 600 MG TAB PO SCH ×3 (09:10→20:37)
[2023-06-03] MEDS: Gabapentin 300 MG CAP PO SCH ×3 (09:10→20:37)
[2023-06-03] MEDS: ALPRAZolam 0.25 MG TAB PO SCH ×2 (09:10→20:37)
[2023-06-03] MEDS: Polyethylene Glycol 3350 17 GM Packet PO SCH (09:10)
[2023-06-03] MEDS: Pantoprazole 40 MG VIAL IVP SCH (09:11)
[2023-06-03] MEDS: Fluticasone Propionate Nasal Spray 16 gm Bottle NASAL SCH (09:12)
[2023-06-03] MEDS ORDERED: Potassium Chloride 40 MEQ in Premix 1 BAG IVPB SCH (10:30)
[2023-06-03] MEDS: Atorvastatin Calcium 40 MG TAB PO SCH (20:37)
[2023-06-03] MEDS: Tamsulosin HCl 0.4 MG CAP PO SCH (20:37)
[2023-06-04 00:28] LABS: Vancomycin, Random 19.4 ug/mL (See Comment)
[2023-06-04] MEDS ORDERED: Vancomycin HCl 500 MG in Sodium Chloride 0.9% 100 ML IV SCH (02:00)
[2023-06-04] MEDS ORDERED: Vancomycin Dose by Levels Sliding Scale (Wt 71-99) FS SCH (02:00)
[2023-06-04] MEDS: NOREPINEPHRINE 8 MG/250 ML-D5W 250 ML IVPB SCH ×5 (03:19→22:02)
[2023-06-04] MEDS: Propofol 1,000 MG/100 ML VIAL IV PRN ×2 (03:19→22:02)
[2023-06-04 04:56] LABS: #Eosinphils 0.1 thou/uL (0.0-0.7); #Monocytes 0.9 thou/uL (0.11-0.59); #Neutrophils 7.8 thou/uL (1.40-6.50); %Basophils 0.2 % (0.0-1.0); %Eosinophils 1.2 % (0.0-10.0); %Lymphocytes 11.4 % (21.0-51.0); %Monocytes 9.4 % (0.0-10.0); %Neutrophils 77.4 % (42.0-75.0); Hemoglobin 10.3 g/dL (14.0-18.0); Mean Corpuscular HGB CONC 31.2 g/dL (32.0-36.0); Mean Corpuscular Hemoglobin 27.1 pg (27.0-31.0); Mean Corpuscular Volume 86.8 fl (78.0-98.0); Mean Platelet Volume 12.3 fL (7.4-10.4); Platelet Count 141 10x3/uL (130-400); RBC Distribution Width 17.1 % (11.5-14.5)
[2023-06-04 05:25] LABS: Anion Gap 14 mmol/L (10-20); BUN (Urea Nitrogen) 94 mg/dL (8.4-25.7); Calc. Creatinine Clearance 43 mL/min (70-130); Calcium 7.4 mg/dL (7.8-10.44); Carbon Dioxide 34 mmol/L (23-31); Chloride 94 mmol/L (98-107); Estimated GFR 36; Glucose 189 mg/dL (83-110); Potassium 3.3 mmol/L (3.5-5.1); Sodium 139 mmol/L (136-145)
[2023-06-04] MEDS ORDERED: Potassium Chloride 20 MEQ in Premix 1 BAG IVPB SCH (06:45)
[2023-06-04] MEDS: Aspirin Chewable 81 MG TAB PO SCH (08:40)
[2023-06-04] MEDS: Acetaminophen 325 MG TAB PO PRN (08:40)
[2023-06-04] MEDS: ALPRAZolam 0.25 MG TAB PO SCH ×2 (08:40→20:57)
[2023-06-04] MEDS: Pantoprazole 40 MG VIAL IVP SCH (08:41)
[2023-06-04] MEDS: Senokot S 8.6-50 MG TAB PO SCH ×2 (08:41→20:58)
[2023-06-04] MEDS: Polyethylene Glycol 3350 17 GM Packet PO SCH (08:41)
[2023-06-04] MEDS: guaiFENesin ER 600 MG TAB PO SCH ×2 (08:41→20:58)
[2023-06-04] MEDS: Fluticasone Propionate Nasal Spray 16 gm Bottle NASAL SCH (08:41)
[2023-06-04] MEDS: Gabapentin 300 MG CAP PO SCH ×3 (08:41→20:58)
[2023-06-04 09:28] LABS: Base Excess (BEa) 10.4 mEq/L (-2.0 to +3.0); CO2 Tension 41.1 mmHg (35.0-45.0); Calcium, Ionized (arterial) 1.02 mmol/L (1.12-1.30); Carboxyhemoglobin (COHb) 0.6 gm% (0.0-3.0); Hematocrit-ABG 32 % (42.0-52.0); Hemoglobin (Hb) 10.9 g/dL (14.0-18.0); O2 Tension (PaO2), arterial 80.6 mmHg (> 60.0); Potassium - ABG Lab 3.49 mmol/L (3.70-5.30); pH, Arterial 7.535 (7.35-7.45)
[2023-06-04 09:30] LABS: Puncture Site Right Radial
[2023-06-04 09:31] LABS: ALV-art Gradient 153.225 mmHg (0-20)
[2023-06-04] MEDS: HumaLOG 300 UNITS/3 ML VIAL SC PRN (10:27)
[2023-06-04] MEDS: Albumin 25% 25 GM/100 ML BOT IVPB SCH (10:27)
[2023-06-04] MEDS ORDERED: Amiodarone 150 MG, Admixture Fee 1 EACH in Dextrose 5% in Water 100 ML IVPB SCH (14:30)
[2023-06-04] MEDS: Amiodarone 450 MG, Admixture Fee 1 EACH in Dextrose 5% in Water 250 ML IVPB SCH ×2 (15:00→23:07)
[2023-06-04] MEDS: Tamsulosin HCl 0.4 MG CAP PO SCH (20:57)
[2023-06-04] MEDS: Atorvastatin Calcium 40 MG TAB PO SCH (20:58)
[2023-06-05 01:42] LABS: Vancomycin, Random 16.4 ug/mL (See Comment)
[2023-06-05] MEDS: Vancomycin 1 GM in Premix 1 BAG IVPB SCH (03:15)
[2023-06-05] MEDS: NOREPINEPHRINE 8 MG/250 ML-D5W 250 ML IVPB SCH ×3 (03:25→20:59)
[2023-06-05 04:18] LABS: #Eosinphils 0.2 thou/uL (0.0-0.7); #Monocytes 0.8 thou/uL (0.11-0.59); #Neutrophils 8.4 thou/uL (1.40-6.50); %Basophils 0.1 % (0.0-1.0); %Eosinophils 1.5 % (0.0-10.0); %Lymphocytes 9.4 % (21.0-51.0); %Monocytes 7.4 % (0.0-10.0); Hematocrit 33.9 % (42.0-52.0); Hemoglobin 10.5 g/dL (14.0-18.0); Mean Corpuscular Volume 87.1 fl (78.0-98.0); Mean Platelet Volume 12.2 fL (7.4-10.4); Platelet Count 148 10x3/uL (130-400); RBC Distribution Width 16.9 % (11.5-14.5); Red Blood Cell (RBC) Count 3.89 mill/uL (4.70-6.10); White Blood Cell (WBC) Count 10.3 10x3/uL (4.8-10.8)
[2023-06-05 04:42] LABS: Anion Gap 14 mmol/L (10-20); BUN (Urea Nitrogen) 83 mg/dL (8.4-25.7); Calc. Creatinine Clearance 50 mL/min (70-130); Calcium 8.1 mg/dL (7.8-10.44); Carbon Dioxide 33 mmol/L (23-31); Chloride 92 mmol/L (98-107); Estimated GFR 42; Glucose 193 mg/dL (83-110); Potassium 3.2 mmol/L (3.5-5.1); Sodium 136 mmol/L (136-145)
[2023-06-05 06:22] LABS: Actual Bicarbonate (HCO3a) 33.1 mEq/L (22-28); Base Excess (BEa) 8.8 mEq/L (-2.0 to +3.0); CO2 Tension 44.4 mmHg (35.0-45.0); Calcium, Ionized (arterial) 1.08 mmol/L (1.12-1.30); Hematocrit-ABG 34 % (42.0-52.0); Hemoglobin (Hb) 11.7 g/dL (14.0-18.0); O2 Tension (PaO2), arterial 105.9 mmHg (> 60.0); Potassium - ABG Lab 3.35 mmol/L (3.70-5.30)
[2023-06-05 06:24] LABS: Puncture Site Right Radial
[2023-06-05] MEDS: Senokot S 8.6-50 MG TAB PO SCH ×2 (09:25→22:03)
[2023-06-05] MEDS: Polyethylene Glycol 3350 17 GM Packet PO SCH (09:25)
[2023-06-05] MEDS: guaiFENesin ER 600 MG TAB PO SCH ×2 (09:31→21:55)
[2023-06-05] MEDS: Pantoprazole 40 MG VIAL IVP SCH (09:31)
[2023-06-05] MEDS: ALPRAZolam 0.25 MG TAB PO SCH ×2 (09:31→20:38)
[2023-06-05] MEDS: Gabapentin 300 MG CAP PO SCH ×3 (09:32→20:37)
[2023-06-05] MEDS: Aspirin Chewable 81 MG TAB PO SCH (09:33)
[2023-06-05] MEDS: Fluticasone Propionate Nasal Spray 16 gm Bottle NASAL SCH (10:39)
[2023-06-05] MEDS: Albumin 25% 25 GM/100 ML BOT IVPB SCH (10:45)
[2023-06-05] MEDS: Amiodarone 450 MG, Admixture Fee 1 EACH in Dextrose 5% in Water 250 ML IVPB SCH (15:02)
[2023-06-05] MEDS: Tamsulosin HCl 0.4 MG CAP PO SCH (20:37)
[2023-06-05] MEDS: Atorvastatin Calcium 40 MG TAB PO SCH (20:38)
[2023-06-06 01:46] LABS: INR-International Normal Ratio 1.1; PTT 39.1 sec (22.9-36.1); Prothrombin Time 14.6 sec (12.0-14.7)
[2023-06-06 02:05] LABS: #Eosinphils 0.2 thou/uL (0.0-0.7); #Monocytes 0.4 thou/uL (0.11-0.59); #Neutrophils 5.5 thou/uL (1.40-6.50); %Basophils 0.1 % (0.0-1.0); %Eosinophils 2.3 % (0.0-10.0); %Monocytes 5.9 % (0.0-10.0); %Neutrophils 80.3 % (42.0-75.0); Hematocrit 31.2 % (42.0-52.0); Hemoglobin 9.6 g/dL (14.0-18.0); Mean Corpuscular HGB CONC 30.8 g/dL (32.0-36.0); Mean Corpuscular Volume 87.6 fl (78.0-98.0); Mean Platelet Volume 12.4 fL (7.4-10.4); Platelet Count 155 10x3/uL (130-400); RBC Distribution Width 16.8 % (11.5-14.5); Red Blood Cell (RBC) Count 3.56 mill/uL (4.70-6.10); White Blood Cell (WBC) Count 6.8 10x3/uL (4.8-10.8)
[2023-06-06 02:26] LABS: Anion Gap 14 mmol/L (10-20); BUN (Urea Nitrogen) 72 mg/dL (8.4-25.7); Calc. Creatinine Clearance 55 mL/min (70-130); Carbon Dioxide 31 mmol/L (23-31); Chloride 94 mmol/L (98-107); Estimated GFR 46; Glucose 156 mg/dL (83-110); Potassium 3.3 mmol/L (3.5-5.1); Sodium 136 mmol/L (136-145)
[2023-06-06] MEDS: Vancomycin 1 GM in Premix 1 BAG IVPB SCH (03:04)
[2023-06-06] MEDS ORDERED: Potassium Chloride 40 MEQ in Premix 1 BAG IVPB SCH (03:45)
[2023-06-06] MEDS: Amiodarone 450 MG, Admixture Fee 1 EACH in Dextrose 5% in Water 250 ML IVPB SCH ×2 (07:15→22:33)
[2023-06-06 07:29] LABS: Actual Bicarbonate (HCO3a) 34.5 mEq/L (22-28); Base Excess (BEa) 10.2 mEq/L (-2.0 to +3.0); CO2 Tension 44.8 mmHg (35.0-45.0); Hematocrit-ABG 36 % (42.0-52.0); Hemoglobin (Hb) 12.4 g/dL (14.0-18.0); O2 Tension (PaO2), arterial 108.7 mmHg (> 60.0); Potassium - ABG Lab 3.59 mmol/L (3.70-5.30); pH, Arterial 7.504 (7.35-7.45)
[2023-06-06 07:30] LABS: Puncture Site RRA
[2023-06-06] MEDS: ALPRAZolam 0.25 MG TAB PO SCH ×2 (08:46→21:36)
[2023-06-06] MEDS: Gabapentin 300 MG CAP PO SCH ×3 (08:46→21:36)
[2023-06-06] MEDS: guaiFENesin ER 600 MG TAB PO SCH ×2 (08:46→21:36)
[2023-06-06] MEDS: Pantoprazole 40 MG VIAL IVP SCH (08:47)
[2023-06-06] MEDS: Aspirin Chewable 81 MG TAB PO SCH (08:47)
[2023-06-06] MEDS: Fluticasone Propionate Nasal Spray 16 gm Bottle NASAL SCH (08:47)
[2023-06-06] MEDS: Senokot S 8.6-50 MG TAB PO SCH ×2 (09:00→21:28)
[2023-06-06] MEDS: Polyethylene Glycol 3350 17 GM Packet PO SCH (09:00)
[2023-06-06] MEDS: NOREPINEPHRINE 8 MG/250 ML-D5W 250 ML IVPB SCH (15:14)
[2023-06-06] MEDS: Tamsulosin HCl 0.4 MG CAP PO SCH (21:36)
[2023-06-06] MEDS: Atorvastatin Calcium 40 MG TAB PO SCH (21:36)
[2023-06-06] MEDS: Acetaminophen 325 MG TAB PO PRN (22:00)
[2023-06-07 04:25] LABS: #Eosinphils 0.2 thou/uL (0.0-0.7); #Monocytes 0.3 thou/uL (0.11-0.59); #Neutrophils 4.8 thou/uL (1.40-6.50); %Basophils 0.2 % (0.0-1.0); %Eosinophils 2.8 % (0.0-10.0); %Monocytes 4.7 % (0.0-10.0); Hematocrit 30.1 % (42.0-52.0); Mean Corpuscular HGB CONC 29.9 g/dL (32.0-36.0); Mean Corpuscular Hemoglobin 26.3 pg (27.0-31.0); Platelet Count 153 10x3/uL (130-400); RBC Distribution Width 16.6 % (11.5-14.5); Red Blood Cell (RBC) Count 3.42 mill/uL (4.70-6.10)
[2023-06-07 04:48] LABS: Vancomycin, Trough 21.7 ug/mL
[2023-06-07 04:50] LABS: Anion Gap 11 mmol/L (10-20); BUN (Urea Nitrogen) 69 mg/dL (8.4-25.7); Calc. Creatinine Clearance 51 mL/min (70-130); Calcium 8.1 mg/dL (7.8-10.44); Carbon Dioxide 34 mmol/L (23-31); Chloride 94 mmol/L (98-107); Estimated GFR 45; Glucose 154 mg/dL (83-110); Potassium 3.4 mmol/L (3.5-5.1); Sodium 136 mmol/L (136-145)
[2023-06-07] MEDS: Vancomycin 1 GM in Premix 1 BAG IVPB SCH (04:54)
[2023-06-07 07:25] LABS: ALV-art Gradient 107.925 mmHg (0-20); Actual Bicarbonate (HCO3a) 31.4 mEq/L (22-28); Base Excess (BEa) 8.2 mEq/L (-2.0 to +3.0); CO2 Tension 38.3 mmHg (35.0-45.0); Carboxyhemoglobin (COHb) 1.2 gm% (0.0-3.0); Hematocrit-ABG 41 % (42.0-52.0); Hemoglobin (Hb) 13.8 g/dL (14.0-18.0); O2 Tension (PaO2), arterial 129.4 mmHg (> 60.0); Potassium - ABG Lab 3.28 mmol/L (3.70-5.30); Puncture Site RRA; pH, Arterial 7.531 (7.35-7.45)
[2023-06-07] MEDS: Pantoprazole 40 MG VIAL IVP SCH (09:15)
[2023-06-07] MEDS: guaiFENesin ER 600 MG TAB PO SCH ×2 (09:15→20:45)
[2023-06-07] MEDS: Gabapentin 300 MG CAP PO SCH ×3 (09:15→20:44)
[2023-06-07] MEDS: ALPRAZolam 0.25 MG TAB PO SCH ×2 (09:16→20:44)
[2023-06-07] MEDS: Polyethylene Glycol 3350 17 GM Packet PO SCH (09:16)
[2023-06-07] MEDS: Aspirin Chewable 81 MG TAB PO SCH (09:16)
[2023-06-07] MEDS: Fluticasone Propionate Nasal Spray 16 gm Bottle NASAL SCH (09:16)
[2023-06-07] MEDS: Senokot S 8.6-50 MG TAB PO SCH ×2 (09:17→20:45)
[2023-06-07] MEDS: NOREPINEPHRINE 8 MG/250 ML-D5W 250 ML IVPB SCH (11:03)
[2023-06-07] MEDS: Midodrine HCl 5 MG TAB PO SCH ×2 (11:03→19:54)
[2023-06-07] MEDS: Potassium Chloride 20 MEQ in Premix 1 BAG IVPB SCH ×2 (11:03→12:51)
[2023-06-07] MEDS: Hydrocortisone Sod Succ/PF 100 mg/2 ml Vial IVP SCH ×2 (12:21→20:49)
[2023-06-07 14:38] LABS: Hematocrit 31.7 % (42.0-52.0); Hemoglobin 9.7 g/dL (14.0-18.0); Mean Corpuscular HGB CONC 30.6 g/dL (32.0-36.0); Mean Corpuscular Hemoglobin 26.9 pg (27.0-31.0); Mean Corpuscular Volume 87.8 fl (78.0-98.0); Mean Platelet Volume 11.2 fL (7.4-10.4); Platelet Count 174 10x3/uL (130-400); RBC Distribution Width 16.8 % (11.5-14.5); Red Blood Cell (RBC) Count 3.61 mill/uL (4.70-6.10); White Blood Cell (WBC) Count 8.4 10x3/uL (4.8-10.8)
[2023-06-07] MEDS ORDERED: Scopolamine 1 mg/72 hour Patch TD SCH (15:00)
[2023-06-07] MEDS ORDERED: Midodrine HCl 5 MG TAB PO SCH (15:00)
[2023-06-07] MEDS: Amiodarone 200 MG TAB PER TUBE SCH ×2 (15:01→20:44)
[2023-06-07] MEDS ORDERED: Vasopressin 20 UNITS, Admixture Fee 1 EACH in Sodium Chloride 0.9% 50 ML IV SCH (15:30)
[2023-06-07 17:56] LABS: Potassium 4.4 mmol/L (3.5-5.1)
[2023-06-07 20:42] LABS: INR-International Normal Ratio 1.1; PTT 33.9 sec (22.9-36.1)
[2023-06-07] MEDS: Atorvastatin Calcium 40 MG TAB PO SCH (20:44)
[2023-06-07] MEDS: Glycopyrrolate 0.2 MG/ML 5 ML SYRINGE SLOW IVP SCH (20:50)
[2023-06-07] MEDS ORDERED: DC Sedation Protocol FS ONE (23:34)
[2023-06-08] MEDS: Midodrine HCl 5 MG TAB PO SCH ×3 (02:56→20:20)
[2023-06-08] MEDS: Glycopyrrolate 0.2 MG/ML 5 ML SYRINGE SLOW IVP SCH ×3 (02:57→13:49)
[2023-06-08] MEDS: Hydrocortisone Sod Succ/PF 100 mg/2 ml Vial IVP SCH ×3 (03:01→20:19)
[2023-06-08 04:43] LABS: #Monocytes 0.1 thou/uL (0.11-0.59); #Neutrophils 5.8 thou/uL (1.40-6.50); %Lymphocytes 9.1 % (21.0-51.0); %Monocytes 2.1 % (0.0-10.0); %Neutrophils 87.9 % (42.0-75.0); Hemoglobin 9.7 g/dL (14.0-18.0); Mean Corpuscular HGB CONC 30.3 g/dL (32.0-36.0); Mean Corpuscular Hemoglobin 26.6 pg (27.0-31.0); Mean Corpuscular Volume 87.9 fl (78.0-98.0); Mean Platelet Volume 11.3 fL (7.4-10.4); Platelet Count 211 10x3/uL (130-400); RBC Distribution Width 16.3 % (11.5-14.5); Red Blood Cell (RBC) Count 3.64 mill/uL (4.70-6.10); White Blood Cell (WBC) Count 6.6 10x3/uL (4.8-10.8)
[2023-06-08 05:05] LABS: Anion Gap 14 mmol/L (10-20); BUN (Urea Nitrogen) 73 mg/dL (8.4-25.7); Calc. Creatinine Clearance 48 mL/min (70-130); Calcium 8.4 mg/dL (7.8-10.44); Carbon Dioxide 31 mmol/L (23-31); Chloride 93 mmol/L (98-107); Estimated GFR 40; Glucose 182 mg/dL (83-110); Potassium 4.3 mmol/L (3.5-5.1); Sodium 134 mmol/L (136-145)
[2023-06-08] MEDS: Vancomycin HCl 750 MG in Sodium Chloride 0.9% 250 ML 250 ML IVPB SCH (05:20)
[2023-06-08] MEDS: NOREPINEPHRINE 8 MG/250 ML-D5W 250 ML IVPB SCH (08:01)
[2023-06-08] MEDS ORDERED: Sodium Chloride 0.9% 1,000 ML IV SCH (08:30)
[2023-06-08] MEDS: Polyethylene Glycol 3350 17 GM Packet PO SCH (08:46)
[2023-06-08] MEDS: Fluticasone Propionate Nasal Spray 16 gm Bottle NASAL SCH (08:46)
[2023-06-08] MEDS: Gabapentin 300 MG CAP PO SCH ×3 (08:46→20:20)
[2023-06-08] MEDS: Senokot S 8.6-50 MG TAB PO SCH ×2 (08:46→20:21)
[2023-06-08] MEDS: guaiFENesin ER 600 MG TAB PO SCH ×2 (08:46→20:20)
[2023-06-08] MEDS: ALPRAZolam 0.25 MG TAB PO SCH ×2 (08:46→20:20)
[2023-06-08] MEDS: Amiodarone 200 MG TAB PER TUBE SCH ×3 (08:51→20:20)
[2023-06-08] MEDS: Pantoprazole 40 MG VIAL IVP SCH (08:51)
[2023-06-08] MEDS: HumaLOG 300 UNITS/3 ML VIAL SC PRN ×2 (10:32→16:19)
[2023-06-08 12:21] LABS: Hematocrit 29.7 % (42.0-52.0); Hemoglobin 9.1 g/dL (14.0-18.0); Mean Corpuscular HGB CONC 30.6 g/dL (32.0-36.0); Mean Corpuscular Hemoglobin 26.6 pg (27.0-31.0); Mean Corpuscular Volume 86.8 fl (78.0-98.0); Platelet Count 199 10x3/uL (130-400); RBC Distribution Width 16.1 % (11.5-14.5); Red Blood Cell (RBC) Count 3.42 mill/uL (4.70-6.10); White Blood Cell (WBC) Count 6.3 10x3/uL (4.8-10.8)
[2023-06-08] MEDS ORDERED: Scopolamine 1 mg/72 hour Patch TD SCH (13:30)
[2023-06-08] MEDS: Scopolamine 1 mg/72 hour Patch TOP SCH (16:09)
[2023-06-08] MEDS: Atorvastatin Calcium 40 MG TAB PO SCH (20:20)
[2023-06-08 23:11] LABS: Anion Gap 12 mmol/L (10-20); BUN (Urea Nitrogen) 80 mg/dL (8.4-25.7); Calc. Creatinine Clearance 45 mL/min (70-130); Carbon Dioxide 32 mmol/L (23-31); Chloride 96 mmol/L (98-107); Estimated GFR 39; Glucose 154 mg/dL (83-110); Magnesium 2.3 mg/dL (1.6-2.6); Potassium 3.9 mmol/L (3.5-5.1); Sodium 136 mmol/L (136-145)
[2023-06-09] MEDS: Midodrine HCl 5 MG TAB PO SCH ×3 (02:26→22:27)
[2023-06-09] MEDS: Hydrocortisone Sod Succ/PF 100 mg/2 ml Vial IVP SCH ×3 (02:50→20:15)
[2023-06-09 04:22] LABS: #Monocytes 0.3 thou/uL (0.11-0.59); %Lymphocytes 9.6 % (21.0-51.0); %Monocytes 5.9 % (0.0-10.0); %Neutrophils 83.7 % (42.0-75.0); Hematocrit 28.3 % (42.0-52.0); Hemoglobin 8.5 g/dL (14.0-18.0); Mean Corpuscular Hemoglobin 26.7 pg (27.0-31.0); Mean Platelet Volume 11.8 fL (7.4-10.4); Platelet Count 184 10x3/uL (130-400); Red Blood Cell (RBC) Count 3.18 mill/uL (4.70-6.10); White Blood Cell (WBC) Count 4.8 10x3/uL (4.8-10.8)
[2023-06-09 04:46] LABS: Anion Gap 13 mmol/L (10-20); BUN (Urea Nitrogen) 81 mg/dL (8.4-25.7); Calc. Creatinine Clearance 43 mL/min (70-130); Calcium 8.1 mg/dL (7.8-10.44); Carbon Dioxide 29 mmol/L (23-31); Chloride 97 mmol/L (98-107); Estimated GFR 37; Glucose 182 mg/dL (83-110); Potassium 4.6 mmol/L (3.5-5.1); Sodium 134 mmol/L (136-145)
[2023-06-09] MEDS: Vancomycin HCl 750 MG in Sodium Chloride 0.9% 250 ML 250 ML IVPB SCH (05:53)
[2023-06-09] MEDS: guaiFENesin ER 600 MG TAB PO SCH ×3 (09:58→20:16)
[2023-06-09] MEDS: Gabapentin 300 MG CAP PO SCH ×3 (09:58→20:16)
[2023-06-09] MEDS: Senokot S 8.6-50 MG TAB PO SCH ×2 (09:59→20:17)
[2023-06-09] MEDS: Polyethylene Glycol 3350 17 GM Packet PO SCH (09:59)
[2023-06-09] MEDS: Pantoprazole 40 MG VIAL IVP SCH (09:59)
[2023-06-09] MEDS: Amiodarone 200 MG TAB PER TUBE SCH ×3 (09:59→20:16)
[2023-06-09] MEDS: ALPRAZolam 0.25 MG TAB PO SCH ×2 (10:45→20:15)
[2023-06-09] MEDS: HumaLOG 300 UNITS/3 ML VIAL SC PRN ×3 (11:05→22:32)
[2023-06-09 11:27] LABS: Vancomycin, Random 25.9 ug/mL (See Comment)
[2023-06-09] MEDS: Fluticasone Propionate Nasal Spray 16 gm Bottle NASAL SCH (11:37)
[2023-06-09] MEDS ORDERED: Vancomycin Dose by Levels Sliding Scale (Wt 71-99) FS SCH (12:30)
[2023-06-09] MEDS: Atorvastatin Calcium 40 MG TAB PO SCH (20:16)
[2023-06-10] MEDS: Hydrocortisone Sod Succ/PF 100 mg/2 ml Vial IVP SCH ×3 (04:40→20:09)
[2023-06-10 05:13] LABS: #Monocytes 0.3 thou/uL (0.11-0.59); #Neutrophils 4.6 thou/uL (1.40-6.50); %Lymphocytes 6.7 % (21.0-51.0); %Monocytes 5.5 % (0.0-10.0); %Neutrophils 87.2 % (42.0-75.0); Hematocrit 27.4 % (42.0-52.0); Hemoglobin 8.3 g/dL (14.0-18.0); Mean Corpuscular HGB CONC 30.3 g/dL (32.0-36.0); Mean Corpuscular Hemoglobin 26.9 pg (27.0-31.0); Mean Platelet Volume 11.6 fL (7.4-10.4); Platelet Count 198 10x3/uL (130-400); RBC Distribution Width 15.9 % (11.5-14.5); Red Blood Cell (RBC) Count 3.08 mill/uL (4.70-6.10); White Blood Cell (WBC) Count 5.3 10x3/uL (4.8-10.8)
[2023-06-10 05:49] LABS: Anion Gap 14 mmol/L (10-20); BUN (Urea Nitrogen) 98 mg/dL (8.4-25.7); Calc. Creatinine Clearance 42 mL/min (70-130); Calcium 7.5 mg/dL (7.8-10.44); Carbon Dioxide 29 mmol/L (23-31); Chloride 97 mmol/L (98-107); Estimated GFR 36; Glucose 214 mg/dL (83-110); Sodium 136 mmol/L (136-145)
[2023-06-10] MEDS: HumaLOG 300 UNITS/3 ML VIAL SC PRN ×4 (06:11→23:14)
[2023-06-10 06:24] LABS: Vancomycin, Random 23.3 ug/mL (See Comment)
[2023-06-10] MEDS: Gabapentin 300 MG CAP PO SCH ×3 (10:02→20:08)
[2023-06-10] MEDS: Amiodarone 200 MG TAB PER TUBE SCH ×3 (10:03→20:08)
[2023-06-10] MEDS: Pantoprazole 40 MG VIAL IVP SCH (10:04)
[2023-06-10] MEDS: ALPRAZolam 0.25 MG TAB PO SCH ×2 (10:04→20:08)
[2023-06-10] MEDS: Polyethylene Glycol 3350 17 GM Packet PO SCH (10:04)
[2023-06-10] MEDS: guaiFENesin ER 600 MG TAB PO SCH ×2 (10:04→20:08)
[2023-06-10] MEDS: Senokot S 8.6-50 MG TAB PO SCH ×2 (10:05→20:19)
[2023-06-10] MEDS: Fluticasone Propionate Nasal Spray 16 gm Bottle NASAL SCH (10:05)
[2023-06-10] MEDS: Midodrine HCl 5 MG TAB PO SCH ×2 (12:58→23:14)
[2023-06-10] MEDS: SODIUM CHLORIDE 0.9% IVPB SCH (15:21)
[2023-06-10] MEDS: DAPTOMYCIN IVPB SCH (15:21)
[2023-06-10] MEDS: Atorvastatin Calcium 40 MG TAB PO SCH (20:08)
[2023-06-11] MEDS: Hydrocortisone Sod Succ/PF 100 mg/2 ml Vial IVP SCH ×3 (03:47→20:21)
[2023-06-11 04:37] LABS: #Monocytes 0.3 thou/uL (0.11-0.59); #Neutrophils 4.7 thou/uL (1.40-6.50); %Lymphocytes 7.5 % (21.0-51.0); %Monocytes 5.9 % (0.0-10.0); %Neutrophils 85.7 % (42.0-75.0); Hematocrit 28.6 % (42.0-52.0); Hemoglobin 8.7 g/dL (14.0-18.0); Mean Corpuscular HGB CONC 30.4 g/dL (32.0-36.0); Mean Corpuscular Hemoglobin 26.6 pg (27.0-31.0); Mean Corpuscular Volume 87.5 fl (78.0-98.0); Mean Platelet Volume 11.3 fL (7.4-10.4); Platelet Count 188 10x3/uL (130-400); RBC Distribution Width 15.9 % (11.5-14.5); Red Blood Cell (RBC) Count 3.27 mill/uL (4.70-6.10); White Blood Cell (WBC) Count 5.5 10x3/uL (4.8-10.8)
[2023-06-11 05:02] LABS: Anion Gap 12 mmol/L (10-20); BUN (Urea Nitrogen) 108 mg/dL (8.4-25.7); Calc. Creatinine Clearance 41 mL/min (70-130); Calcium 7.9 mg/dL (7.8-10.44); Carbon Dioxide 32 mmol/L (23-31); Chloride 98 mmol/L (98-107); Estimated GFR 35; Glucose 243 mg/dL (83-110); Potassium 3.8 mmol/L (3.5-5.1); Sodium 138 mmol/L (136-145)
[2023-06-11] MEDS: HumaLOG 300 UNITS/3 ML VIAL SC PRN ×2 (05:34→19:04)
[2023-06-11] MEDS: ALPRAZolam 0.25 MG TAB PO SCH ×2 (09:04→20:44)
[2023-06-11] MEDS: Gabapentin 300 MG CAP PO SCH ×3 (09:05→20:44)
[2023-06-11] MEDS: Fluticasone Propionate Nasal Spray 16 gm Bottle NASAL SCH (09:05)
[2023-06-11] MEDS: Amiodarone 200 MG TAB PER TUBE SCH ×3 (09:05→20:44)
[2023-06-11] MEDS: guaiFENesin ER 600 MG TAB PO SCH ×2 (09:05→21:20)
[2023-06-11] MEDS: Polyethylene Glycol 3350 17 GM Packet PO SCH (09:06)
[2023-06-11] MEDS: Senokot S 8.6-50 MG TAB PO SCH ×2 (09:06→20:45)
[2023-06-11] MEDS: Pantoprazole 40 MG VIAL IVP SCH (09:06)
[2023-06-11] MEDS: Midodrine HCl 5 MG TAB PO SCH ×2 (13:14→23:08)
[2023-06-11] MEDS: SODIUM CHLORIDE 0.9% IVPB SCH (13:15)
[2023-06-11] MEDS: DAPTOMYCIN IVPB SCH (13:15)
[2023-06-11] MEDS: Scopolamine 1 mg/72 hour Patch TOP SCH (16:53)
[2023-06-11] MEDS: Atorvastatin Calcium 40 MG TAB PO SCH (20:44)
[2023-06-11] MEDS ORDERED: Guaifenesin DM 100-10/5 ML UDCUP PO PRN (21:02)
[2023-06-12] MEDS: Hydrocortisone Sod Succ/PF 100 mg/2 ml Vial IVP SCH ×3 (04:57→20:23)
[2023-06-12 05:22] LABS: #Monocytes 0.4 thou/uL (0.11-0.59); #Neutrophils 4.8 thou/uL (1.40-6.50); %Monocytes 6.5 % (0.0-10.0); %Neutrophils 82.5 % (42.0-75.0); Hematocrit 26.5 % (42.0-52.0); Hemoglobin 8.2 g/dL (14.0-18.0); Mean Corpuscular HGB CONC 30.9 g/dL (32.0-36.0); Mean Corpuscular Hemoglobin 26.6 pg (27.0-31.0); Mean Platelet Volume 11.5 fL (7.4-10.4); Platelet Count 198 10x3/uL (130-400); RBC Distribution Width 16.3 % (11.5-14.5); Red Blood Cell (RBC) Count 3.08 mill/uL (4.70-6.10); White Blood Cell (WBC) Count 5.8 10x3/uL (4.8-10.8)
[2023-06-12 06:15] LABS: Anion Gap 16 mmol/L (10-20); BUN (Urea Nitrogen) 123 mg/dL (8.4-25.7); CK (CPK) 18 U/L (30-200); Calc. Creatinine Clearance 41 mL/min (70-130); Calcium 7.7 mg/dL (7.8-10.44); Carbon Dioxide 30 mmol/L (23-31); Chloride 97 mmol/L (98-107); Estimated GFR 35; Glucose 284 mg/dL (83-110); Potassium 3.6 mmol/L (3.5-5.1); Sodium 139 mmol/L (136-145)
[2023-06-12] MEDS: Polyethylene Glycol 3350 17 GM Packet PO SCH (09:04)
[2023-06-12] MEDS: Senokot S 8.6-50 MG TAB PO SCH ×2 (09:04→20:24)
[2023-06-12] MEDS: ALPRAZolam 0.25 MG TAB PO SCH ×2 (09:11→20:23)
[2023-06-12] MEDS: Fluticasone Propionate Nasal Spray 16 gm Bottle NASAL SCH (09:11)
[2023-06-12] MEDS: Amiodarone 200 MG TAB PER TUBE SCH ×3 (09:11→20:24)
[2023-06-12] MEDS: Pantoprazole 40 MG VIAL IVP SCH (09:11)
[2023-06-12] MEDS: Gabapentin 300 MG CAP PO SCH ×3 (09:11→20:24)
[2023-06-12] MEDS: DAPTOMYCIN IVPB SCH (13:50)
[2023-06-12] MEDS: SODIUM CHLORIDE 0.9% IVPB SCH (13:50)
[2023-06-12] MEDS: Midodrine HCl 5 MG TAB PO SCH (13:52)
[2023-06-12] MEDS: HumaLOG 300 UNITS/3 ML VIAL SC PRN ×2 (14:50→18:34)
[2023-06-12] MEDS: Atorvastatin Calcium 40 MG TAB PO SCH (20:23)
[2023-06-13] MEDS: Midodrine HCl 5 MG TAB PO SCH ×3 (00:01→23:00)
[2023-06-13] MEDS: HumaLOG 300 UNITS/3 ML VIAL SC PRN ×4 (02:01→17:46)
[2023-06-13] MEDS: Hydrocortisone Sod Succ/PF 100 mg/2 ml Vial IVP SCH ×2 (04:36→20:41)
[2023-06-13 05:01] LABS: #Monocytes 0.2 thou/uL (0.11-0.59); #Neutrophils 3.3 thou/uL (1.40-6.50); %Lymphocytes 10.1 % (21.0-51.0); %Monocytes 5.3 % (0.0-10.0); %Neutrophils 83.1 % (42.0-75.0); Hematocrit 26.3 % (42.0-52.0); Hemoglobin 8.1 g/dL (14.0-18.0); Mean Corpuscular HGB CONC 30.8 g/dL (32.0-36.0); Mean Corpuscular Hemoglobin 26.4 pg (27.0-31.0); Mean Corpuscular Volume 85.7 fl (78.0-98.0); Mean Platelet Volume 11.6 fL (7.4-10.4); Platelet Count 199 10x3/uL (130-400); RBC Distribution Width 16.5 % (11.5-14.5); Red Blood Cell (RBC) Count 3.07 mill/uL (4.70-6.10)
[2023-06-13 05:32] LABS: Anion Gap 14 mmol/L (10-20); BUN (Urea Nitrogen) 124 mg/dL (8.4-25.7); Calc. Creatinine Clearance 46 mL/min (70-130); Calcium 7.6 mg/dL (7.8-10.44); Carbon Dioxide 29 mmol/L (23-31); Chloride 98 mmol/L (98-107); Estimated GFR 40; Glucose 287 mg/dL (83-110); Potassium 3.4 mmol/L (3.5-5.1); Sodium 138 mmol/L (136-145)
[2023-06-13 09:22] VITALS: BMI 29.8
[2023-06-13] MEDS: ALPRAZolam 0.25 MG TAB PO SCH ×2 (11:35→20:40)
[2023-06-13] MEDS: Amiodarone 200 MG TAB PER TUBE SCH ×2 (11:35→14:19)
[2023-06-13] MEDS: Senokot S 8.6-50 MG TAB PO SCH ×2 (11:36→20:41)
[2023-06-13] MEDS: Gabapentin 300 MG CAP PO SCH ×3 (11:36→20:40)
[2023-06-13] MEDS: Polyethylene Glycol 3350 17 GM Packet PO SCH (11:36)
[2023-06-13] MEDS: Aspirin 81 mg Enteric Coated Tablet PO SCH (11:36)
[2023-06-13] MEDS: Lansoprazole 15 MG/5 ML (BATCHED)UDCUP PER TUBE SCH (11:36)
[2023-06-13] MEDS: Fluticasone Propionate Nasal Spray 16 gm Bottle NASAL SCH (11:37)
[2023-06-13] MEDS: SODIUM CHLORIDE 0.9% IVPB SCH (14:14)
[2023-06-13] MEDS: DAPTOMYCIN IVPB SCH (14:14)
[2023-06-13] MEDS: Atorvastatin Calcium 40 MG TAB PO SCH (20:40)
[2023-06-13] MEDS: Heparin 5,000 UNITS/ML VIAL SC SCH (20:50)
[2023-06-14 05:52] LABS: #Monocytes 0.2 thou/uL (0.11-0.59); #Neutrophils 3.9 thou/uL (1.40-6.50); %Lymphocytes 13.9 % (21.0-51.0); %Monocytes 3.4 % (0.0-10.0); %Neutrophils 81.9 % (42.0-75.0); Hematocrit 26.3 % (42.0-52.0); Hemoglobin 8.1 g/dL (14.0-18.0); Mean Corpuscular HGB CONC 30.8 g/dL (32.0-36.0); Mean Corpuscular Volume 87.7 fl (78.0-98.0); Mean Platelet Volume 11.4 fL (7.4-10.4); Platelet Count 192 10x3/uL (130-400); RBC Distribution Width 16.7 % (11.5-14.5); White Blood Cell (WBC) Count 4.8 10x3/uL (4.8-10.8)
[2023-06-14] MEDS: HumaLOG 300 UNITS/3 ML VIAL SC PRN ×3 (06:19→17:31)
[2023-06-14 06:22] LABS: Anion Gap 13 mmol/L (10-20); BUN (Urea Nitrogen) 119 mg/dL (8.4-25.7); Calc. Creatinine Clearance 47 mL/min (70-130); Calcium 7.5 mg/dL (7.8-10.44); Carbon Dioxide 29 mmol/L (23-31); Chloride 97 mmol/L (98-107); Estimated GFR 41; Glucose 219 mg/dL (83-110); Potassium 3.9 mmol/L (3.5-5.1); Sodium 135 mmol/L (136-145)
[2023-06-14] MEDS: ALPRAZolam 0.25 MG TAB PO SCH ×2 (08:20→21:18)
[2023-06-14] MEDS: Aspirin 81 mg Enteric Coated Tablet PO SCH (08:20)
[2023-06-14] MEDS: Senokot S 8.6-50 MG TAB PO SCH ×2 (08:20→21:19)
[2023-06-14] MEDS: Heparin 5,000 UNITS/ML VIAL SC SCH ×2 (08:21→21:17)
[2023-06-14] MEDS: Fluticasone Propionate Nasal Spray 16 gm Bottle NASAL SCH (08:21)
[2023-06-14] MEDS: Gabapentin 300 MG CAP PO SCH ×3 (08:21→21:18)
[2023-06-14] MEDS: Hydrocortisone Sod Succ/PF 100 mg/2 ml Vial IVP SCH ×2 (08:21→21:17)
[2023-06-14] MEDS: Lansoprazole 15 MG/5 ML (BATCHED)UDCUP PER TUBE SCH (08:22)
[2023-06-14] MEDS: Polyethylene Glycol 3350 17 GM Packet PO SCH (08:22)
[2023-06-14] MEDS: SODIUM CHLORIDE 0.9% IVPB SCH (13:33)
[2023-06-14] MEDS: DAPTOMYCIN IVPB SCH (13:33)
[2023-06-14] MEDS: Scopolamine 1 mg/72 hour Patch TOP SCH (15:11)
[2023-06-15 05:48] LABS: #Monocytes 0.1 thou/uL (0.11-0.59); #Neutrophils 3.3 thou/uL (1.40-6.50); %Eosinophils 0.2 % (0.0-10.0); %Lymphocytes 15.8 % (21.0-51.0); %Monocytes 3.2 % (0.0-10.0); %Neutrophils 79.6 % (42.0-75.0); Hemoglobin 8.1 g/dL (14.0-18.0); Mean Corpuscular HGB CONC 31.2 g/dL (32.0-36.0); Mean Corpuscular Hemoglobin 26.9 pg (27.0-31.0); Mean Corpuscular Volume 86.4 fl (78.0-98.0); Mean Platelet Volume 11.2 fL (7.4-10.4); Platelet Count 184 10x3/uL (130-400); RBC Distribution Width 16.7 % (11.5-14.5); Red Blood Cell (RBC) Count 3.01 mill/uL (4.70-6.10); White Blood Cell (WBC) Count 4.1 10x3/uL (4.8-10.8)
[2023-06-15] MEDS: HumaLOG 300 UNITS/3 ML VIAL SC PRN ×2 (06:30→21:26)
[2023-06-15 08:02] LABS: Anion Gap 14 mmol/L (10-20); BUN (Urea Nitrogen) 116 mg/dL (8.4-25.7); Calc. Creatinine Clearance 52 mL/min (70-130); Calcium 7.9 mg/dL (7.8-10.44); Carbon Dioxide 27 mmol/L (23-31); Chloride 94 mmol/L (98-107); Estimated GFR 42; Glucose 221 mg/dL (83-110); Potassium 3.7 mmol/L (3.5-5.1); Sodium 131 mmol/L (136-145)
[2023-06-15] MEDS: Senokot S 8.6-50 MG TAB PO SCH ×2 (11:42→20:42)
[2023-06-15] MEDS: Hydrocortisone Sod Succ/PF 100 mg/2 ml Vial IVP SCH ×2 (11:42→20:42)
[2023-06-15] MEDS: Polyethylene Glycol 3350 17 GM Packet PO SCH (11:42)
[2023-06-15] MEDS: Gabapentin 300 MG CAP PO SCH ×3 (11:42→20:37)
[2023-06-15] MEDS: Heparin 5,000 UNITS/ML VIAL SC SCH ×2 (11:42→20:37)
[2023-06-15] MEDS: Fluticasone Propionate Nasal Spray 16 gm Bottle NASAL SCH (11:43)
[2023-06-15] MEDS: Aspirin 81 mg Enteric Coated Tablet PO SCH (11:43)
[2023-06-15] MEDS: ALPRAZolam 0.25 MG TAB PO SCH ×2 (11:43→20:37)
[2023-06-15] MEDS: Lansoprazole 15 MG/5 ML (BATCHED)UDCUP PER TUBE SCH (11:44)
[2023-06-15] MEDS: DAPTOMYCIN IVPB SCH (14:03)
[2023-06-15] MEDS: SODIUM CHLORIDE 0.9% IVPB SCH (14:03)
[2023-06-16] MEDS: HumaLOG 300 UNITS/3 ML VIAL SC PRN (06:31)
[2023-06-16 06:51] LABS: #Monocytes 0.2 thou/uL (0.11-0.59); #Neutrophils 2.9 thou/uL (1.40-6.50); %Eosinophils 0.3 % (0.0-10.0); %Lymphocytes 13.8 % (21.0-51.0); %Monocytes 4.5 % (0.0-10.0); %Neutrophils 80.6 % (42.0-75.0); Hematocrit 28.2 % (42.0-52.0); Hemoglobin 8.9 g/dL (14.0-18.0); Mean Corpuscular HGB CONC 31.6 g/dL (32.0-36.0); Mean Corpuscular Hemoglobin 27.1 pg (27.0-31.0); Mean Platelet Volume 11.5 fL (7.4-10.4); Platelet Count 196 10x3/uL (130-400); RBC Distribution Width 16.7 % (11.5-14.5); Red Blood Cell (RBC) Count 3.28 mill/uL (4.70-6.10); White Blood Cell (WBC) Count 3.6 10x3/uL (4.8-10.8)
[2023-06-16 07:16] LABS: Anion Gap 13 mmol/L (10-20); BUN (Urea Nitrogen) 101 mg/dL (8.4-25.7); Calc. Creatinine Clearance 58 mL/min (70-130); Carbon Dioxide 29 mmol/L (23-31); Chloride 95 mmol/L (98-107); Estimated GFR 49; Glucose 203 mg/dL (83-110); Potassium 3.6 mmol/L (3.5-5.1); Sodium 133 mmol/L (136-145)
[2023-06-16 07:25] VITALS: TEMP 97.3
[2023-06-16] MEDS: Gabapentin 300 MG CAP PO SCH (09:56)
[2023-06-16] MEDS: Aspirin 81 mg Enteric Coated Tablet PO SCH (09:56)
[2023-06-16] MEDS: ALPRAZolam 0.25 MG TAB PO SCH (09:56)
[2023-06-16] MEDS: Polyethylene Glycol 3350 17 GM Packet PO SCH (09:57)
[2023-06-16] MEDS: Fluticasone Propionate Nasal Spray 16 gm Bottle NASAL SCH (09:57)
[2023-06-16] MEDS: Senokot S 8.6-50 MG TAB PO SCH (09:57)
[2023-06-16] MEDS: Lansoprazole 15 MG/5 ML (BATCHED)UDCUP PER TUBE SCH (09:57)
[2023-06-16] MEDS: Heparin 5,000 UNITS/ML VIAL SC SCH (09:57)
[2023-06-16] MEDS: Hydrocortisone Sod Succ/PF 100 mg/2 ml Vial IVP SCH (10:02)
[2023-06-16 10:18] VITALS: BP 164/82
[2023-06-16] MEDS ORDERED: Atorvastatin Calcium 40 MG TAB PO SCH (21:00)
[2023-06-17] MEDS ORDERED: predniSONE 20 MG TAB PO SCH (08:00)
== END 2023-06-16 12:25 | disposition swing bed (61) | DRG 870 ==
LOC: ERS 15:02 → SUATTDRO 15:02 → T4-B 18:11 → 2NO 05-26 13:15 → IMCU/EMU 06-01 19:00 → CCU 06-01 21:23 → IMCU/EMU 06-11 07:24
PROVIDERS: ADMIT Family Medicine; ATTEND Internal Medicine
PROC: 02HV33Z Insertion of Infusion Device into Superior Vena Cava, Percutaneous Approach (ICD-10-PCS; principal; 2023-06-01)
PROC: B5181ZA Fluoroscopy of Superior Vena Cava using Low Osmolar Contrast, Guidance (ICD-10-PCS; 2023-06-01)
PROC: 0DH67UZ Insertion of Feeding Device into Stomach, Via Natural or Artificial Opening (ICD-10-PCS; 2023-06-01)
PROC: 3E033XZ Introduction of Vasopressor into Peripheral Vein, Percutaneous Approach (ICD-10-PCS; 2023-06-01)
PROC: 30233J1 Transfusion of Nonautologous Serum Albumin into Peripheral Vein, Percutaneous Approach (ICD-10-PCS; 2023-06-01)
PROC: 4A00X4Z Measurement of Central Nervous Electrical Activity, External Approach (ICD-10-PCS; 2023-06-02)
PROC: 4A133R1 Monitoring of Arterial Saturation, Peripheral, Percutaneous Approach (ICD-10-PCS; 2023-06-02)
PROC: 5A1955Z Respiratory Ventilation, Greater than 96 Consecutive Hours (ICD-10-PCS; 2023-06-02)
PROC: 0BH17EZ Insertion of Endotracheal Airway into Trachea, Via Natural or Artificial Opening (ICD-10-PCS; 2023-06-02)
PROC: 0TJB8ZZ Inspection of Bladder, Via Natural or Artificial Opening Endoscopic (ICD-10-PCS; 2023-06-12)
PROC: 02HV33Z Insertion of Infusion Device into Superior Vena Cava, Percutaneous Approach (ICD-10-PCS; 2023-06-15)
PROC: B5181ZA Fluoroscopy of Superior Vena Cava using Low Osmolar Contrast, Guidance (ICD-10-PCS; 2023-06-15)
PROC: 3E0 Administration, Physiological Systems and Anatomical Regions, Introduction (ICD-10-PCS; 2023-06-15)
DX: A41.02 Sepsis due to Methicillin resistant Staphylococcus aureus (principal); G93.41 Metabolic encephalopathy; I50.23 Acute on chronic systolic (congestive) heart failure; R65.21 Severe sepsis with septic shock; J96.02 Acute respiratory failure with hypercapnia; J96.01 Acute respiratory failure with hypoxia; I13.0 Hypertensive heart and chronic kidney disease with heart failure and stage 1 through stage 4 chronic kidney disease, or unspecified chronic kidney disease; N17.9 Acute kidney failure, unspecified; N18.4 Chronic kidney disease, stage 4 (severe); I25.810 Atherosclerosis of coronary artery bypass graft(s) without angina pectoris; I42.9 Cardiomyopathy, unspecified; L03.113 Cellulitis of right upper limb; I48.21 Permanent atrial fibrillation; Z66 Do not resuscitate; R30.0 Dysuria; Z51.5 Encounter for palliative care; N48.89 Other specified disorders of penis; I25.10 Atherosclerotic heart disease of native coronary artery without angina pectoris; E78.5 Hyperlipidemia, unspecified; Z96.641 Presence of right artificial hip joint; F41.9 Anxiety disorder, unspecified; E11.22 Type 2 diabetes mellitus with diabetic chronic kidney disease; M10.9 Gout, unspecified; N13.9 Obstructive and reflux uropathy, unspecified; I25.2 Old myocardial infarction; I89.0 Lymphedema, not elsewhere classified; N47.1 Phimosis; R60.1 Generalized edema; E87.6 Hypokalemia; R33.9 Retention of urine, unspecified; N40.1 Benign prostatic hyperplasia with lower urinary tract symptoms; K59.00 Constipation, unspecified; D50.9 Iron deficiency anemia, unspecified; R53.1 Weakness; R31.0 Gross hematuria; D63.1 Anemia in chronic kidney disease; R25.1 Tremor, unspecified; K21.9 Gastro-esophageal reflux disease without esophagitis; W18.30XA Fall on same level, unspecified, initial encounter; I71.9 Aortic aneurysm of unspecified site, without rupture; I35.0 Nonrheumatic aortic (valve) stenosis; R13.12 Dysphagia, oropharyngeal phase; I95.9 Hypotension, unspecified; Z11.52 Encounter for screening for COVID-19; Z79.899 Other long term (current) drug therapy; Z79.82 Long term (current) use of aspirin; Z95.810 Presence of automatic (implantable) cardiac defibrillator; Z98.49 Cataract extraction status, unspecified eye; Z95.1 Presence of aortocoronary bypass graft
CPT/HCPCS: 36415; 36416; 36569; 36600; 70450; 71045; 71046; 74018; 74230; 80048; 80053; 80202; 80306; 80307; 81001; 82140; 82550; 82805; 83605; 83735; 83880; 84100; 84145; 84439; 84443; 84484; 85025; 85384; 85610; 85730; 86140; 87040; 87070; 87077; 87086; 87149; 87186; 87205; 87635; 93005; 93010; 93306; 93970; 94002; 94003; 95711; 95819; 95957; 96374; 97139; C9113; J0282; J0692; J0878; J1250; J1644; J1720; J1815; J1940; J2060; J2704; J3010; J3370; J3370-JW; J3480; J3490; J7030; J7050; J7070; P9047